=== PATIENT | female | born 1960 | race Caucasian/White ===

== ENCOUNTER 2018-12-28 17:30 | Inpatient (IN) | payer MEDICARE ==
[~2018-12-28] VITALS: Ht 160 cm; Wt 95.1 kg
[2018-12-28 18:20] VITALS: BP 124/79
[2018-12-28] MEDS ORDERED: DONE10TA61 PO (18:44)
[2018-12-28] MEDS ORDERED: CARB200T PO (18:44)
[2018-12-28] MEDS ORDERED: AMLO5TAB10 PO (18:44)
[2018-12-28] MEDS ORDERED: SENN-80 PO (18:44)
[2018-12-28] MEDS ORDERED: RISP1TAB3 PO (18:44)
[2018-12-28] MEDS ORDERED: ASPI325T8 PO (18:44)
[2018-12-28] MEDS ORDERED: MEMA10TA PO (18:44)
[2018-12-28] MEDS ORDERED: LISI-334 PO (18:44)
[2018-12-28] MEDS ORDERED: ATOR10TA60 PO (18:44)
[2018-12-28] MEDS ORDERED: PANT40TA5 PO (18:44)
[2018-12-28] MEDS: DONEPEZIL HCL 10 MG TABLET PO SCH (21:20)
[2018-12-28] MEDS: carBAMazepine 200 MG TABLET PO SCH (21:21)
[2018-12-28] MEDS ORDERED: SENNOSIDES 8.6 MG TABLET PO SCH (21:30)
[2018-12-28] MEDS ORDERED: risperiDONE 1 MG TABLET. PO SCH (21:30)
--- NOTE | 2018-12-28 22:28 | PDOC ---
Exam Note: [place] Note: Please also refer to the separate dictated note~for this date of service dictated separately. Discussed the patient with Nursing staff reviewed the chart.~Reviewed interim history and current functioning. Reviewed vital signs,~ Labs/ Radiology~and current medications noted below. Continue current treatment with the changes noted in the dictated addendum note Assessment: Vital Signs: Vital Signs Date Time Temp Pulse Resp B/P (MAP) Pulse Ox O2 Delivery O2 Flow Rate FiO2 12/28/18 18:20 97.7 85 19 124/79 (94) 98 Room Air Current Medications: Meds: Current Medications Aspirin (Oksana Aspirin) 325 mg DAILY PO ; Start 12/29/18 at 09:00 Carbamazepine (TEGretol) 100 mg BID PO Last administered on 12/28/18at 21:21; Start 12/28/18 at 21:30 Lisinopril (Prinivil) 20 mg DAILY PO ; Start 12/29/18 at 09:00 Amlodipine Besylate (Norvasc) 5 mg DAILY PO ; Start 12/29/18 at 09:00 Atorvastatin Calcium (Lipitor) 10 mg DAILY PO ; Start 12/29/18 at 09:00 Donepezil HCl (Aricept) 10 mg HS PO Last administered on 12/28/18at 21:20; Start 12/28/18 at 21:30 Memantine (Namenda) 10 mg DAILY PO ; Start 12/29/18 at 09:00 Pantoprazole Sodium (Protonix) 40 mg DAILY PO ; Start 12/29/18 at 09:00 Risperidone (RisperDAL) 1 mg BID PO Last administered on 12/28/18at 21:21; Start 12/28/18 at 21:30 Sennosides (Senna) 17.2 mg BID PO Last administered on 12/28/18at 21:21; Start 12/28/18 at 21:30 Active Scripts Active Reported Risperidone 1 Mg Tablet 1 Tab PO BID Senna (Sennosides) 8.6 Mg Tablet 17.2 Mg PO BID Pantoprazole Sodium 40 Mg Tablet.dr 1 Tab PO DAILY Namenda (Memantine Hcl) 10 Mg Tablet 1 Tab PO DAILY Lisinopril 20 Mg Tablet 1 Tab PO DAILY Aricept (Donepezil Hcl) 10 Mg Tablet 1 Tab PO QHS Tegretol (Carbamazepine) 200 Mg Tablet 0.5 Tab PO BID Atorvastatin Calcium 10 Mg Tablet 1 Tab PO DAILY Aspirin 325 Mg Tablet 1 Tab PO DAILY Amlodipine Besylate 5 Mg Tablet 1 Tab PO DAILY I have reviewed the current psychotropics carefully including drug interactions. Risk benefit ratio favors no change other than as noted in my dictated progress note. SOLO ALFARO MD Dec 28, 2018 22:28
[2018-12-28] MEDS ORDERED: MAGNESIUM HYDROXIDE 2,400 MG/30 ML ORAL.SUSP. PO PRN (23:00)
[2018-12-28] MEDS ORDERED: MAG HYDROX/AL HYDROX/SIMETH 30 ML ORAL.SUSP PO PRN (23:00)
[2018-12-29] MEDS ORDERED: DICL100G18 TP (00:32)
[2018-12-29] MEDS ORDERED: MEMA10TA PO (00:32)
[2018-12-29] MEDS ORDERED: TRAZ-86 PO (00:32)
[2018-12-29] MEDS ORDERED: RISP2TAB33 PO (00:32)
[2018-12-29] MEDS ORDERED: PROP10DR3 EACHEYE (00:32)
[2018-12-29] MEDS ORDERED: ACYC400T PO (00:32)
[2018-12-29] MEDS ORDERED: HYDR-2868 PO (00:32)
[2018-12-29] MEDS ORDERED: OLAN5TAB5 PO (00:32)
[2018-12-29] MEDS ORDERED: SIME100L MC (00:32)
[2018-12-29] MEDS ORDERED: SIMETHICONE 80 MG TAB.CHEW PO PRN (01:00)
[2018-12-29] MEDS ORDERED: POLYVINYL ALCOHOL 1.4% OPHTH SOLUTION 15ML BOTTLE. OU PRN (01:00)
[2018-12-29] MEDS: traZODone 100 MG TABLET. PO SCH ×2 (03:08→19:18)
[2018-12-29 05:58] VITALS: BP 142/79
[2018-12-29] MEDS: ATORVASTATIN CALCIUM 10 MG TABLET. PO SCH (08:27)
[2018-12-29] MEDS: MEMANTINE 10 MG TABLET. PO SCH (08:27)
[2018-12-29] MEDS: ASPIRIN 325 MG TABLET PO SCH (08:27)
[2018-12-29] MEDS: amLODIPine BESYLATE 5 MG TABLET PO SCH (08:28)
[2018-12-29] MEDS: CHOLECALCIFEROL (VITAMIN D3) 1,000 UNIT TABLET PO SCH (08:29)
[2018-12-29] MEDS: carBAMazepine 200 MG TABLET PO SCH ×2 (08:29→19:18)
[2018-12-29] MEDS: PANTOPRAZOLE 40 MG TABLET. PO SCH (08:29)
[2018-12-29] MEDS: LISINOPRIL 20 MG TABLET PO SCH (08:29)
[2018-12-29] MEDS: risperiDONE 1 MG TABLET. PO SCH (08:29)
[2018-12-29 08:30] LABS: BASO # 0.1 x10^3/uL (0.0-0.2); BASO % 1 % (0-3); EOS # 0.2 x10^3/uL (0.0-0.7); EOS % 3 % (0-3); HEMATOCRIT 36.5 % (36.0-47.0); HEMOGLOBIN 12.3 g/dL (12.0-15.5); LYMPH # 1.4 x10^3/uL (1.0-4.8); LYMPH % 23 % (24-48); MEAN CORPUSCULAR HEMOGLOBIN 31 pg (25-35); MEAN CORPUSCULAR HGB CONC 34 g/dL (31-37); MEAN CORPUSCULAR VOLUME 92 fL (79-100); MONO # 0.4 x10^3/uL (0.0-1.1); MONO % 6 % (0-9); NEUT # 4.1 x10^3uL (1.8-7.7); NEUT % 67 % (31-73); PLATELET COUNT 318 x10^3/uL (140-400); RED BLOOD COUNT 3.95 x10^6/uL (3.50-5.40); RED CELL DISTRIBUTION WIDTH 12.9 % (11.5-14.5); WHITE BLOOD COUNT 6.1 x10^3/uL (4.0-11.0)
[2018-12-29 08:39] LABS: ALBUMIN 3.8 g/dL (3.4-5.0); ALBUMIN/GLOBULIN RATIO 1.3 (1.0-1.7); CREATININE 0.5 mg/dL (0.6-1.0); GFR 126.7; POTASSIUM 4.6 mmol/L (3.5-5.1); TOTAL BILIRUBIN 0.2 mg/dL (0.2-1.0); TOTAL PROTEIN 6.8 g/dL (6.4-8.2)
[2018-12-29] MEDS ORDERED: amLODIPine BESYLATE 5 MG TABLET PO SCH (09:00)
[2018-12-29] MEDS ORDERED: hydroCHLOROthiazide 25 MG TABLET PO SCH (09:00)
[2018-12-29] MEDS ORDERED: HYDR-2145 PO (10:57)
[2018-12-29 12:07] LABS: THYROXINE 5.5 ug/dL (4.5-12.0)
[2018-12-29 14:20] LABS: CARBAM 3.5 mcg/mL (4.0-12.0)
[2018-12-29 17:18] VITALS: BP 129/72
[2018-12-29] MEDS: DONEPEZIL HCL 10 MG TABLET PO SCH (19:18)
[2018-12-29] MEDS: DICLOFENAC SODIUM 1% TOPICAL GEL 100GM TUBE. TP SCH (19:44)
[2018-12-29] MEDS: risperiDONE 2 MG TABLET. PO SCH (19:45)
[2018-12-29] MEDS: MEMANTINE 5 MG TABLET. PO SCH (19:45)
[2018-12-29] MEDS ORDERED: carBAMazepine 200 MG TABLET PO ONE (20:45)
[2018-12-29] MEDS ORDERED: traZODone 100 MG TABLET. PO SCH (21:00)
--- NOTE | 2018-12-29 22:27 | PDOC ---
Exam Note: [place] Note: Please also refer to the separate dictated note~for this date of service dictated separately.~Patient seen individually. Discussed the patient with Nursing staff reviewed the chart.~Reviewed interim history and current functioning. Reviewed vital signs,~Labs/ Radiology~and current medications noted below. Continue current treatment with the changes noted in the dictated addendum note Assessment: Vital Signs: Vital Signs Date Time Temp Pulse Resp B/P (MAP) Pulse Ox O2 Delivery O2 Flow Rate FiO2 12/29/18 17:18 97.3 91 18 129/72 (91) 97 12/28/18 18:20 Room Air I&O Intake and Output 12/29/18 07:00 Intake Total 360 ml Balance 360 ml Intake Oral 360 ml Labs: Laboratory Tests Test 12/29/18 07:54 White Blood Count 6.1 x10^3/uL (4.0-11.0) Red Blood Count 3.95 x10^6/uL (3.50-5.40) Hemoglobin 12.3 g/dL (12.0-15.5) Hematocrit 36.5 % (36.0-47.0) Mean Corpuscular Volume 92 fL (79-100) Mean Corpuscular Hemoglobin 31 pg (25-35) Mean Corpuscular Hemoglobin Concent 34 g/dL (31-37) Red Cell Distribution Width 12.9 % (11.5-14.5) Platelet Count 318 x10^3/uL (140-400) Neutrophils (%) (Auto) 67 % (31-73) Lymphocytes (%) (Auto) 23 % (24-48) L Monocytes (%) (Auto) 6 % (0-9) Eosinophils (%) (Auto) 3 % (0-3) Basophils (%) (Auto) 1 % (0-3) Neutrophils # (Auto) 4.1 x10^3uL (1.8-7.7) Lymphocytes # (Auto) 1.4 x10^3/uL (1.0-4.8) Monocytes # (Auto) 0.4 x10^3/uL (0.0-1.1) Eosinophils # (Auto) 0.2 x10^3/uL (0.0-0.7) Basophils # (Auto) 0.1 x10^3/uL (0.0-0.2) Sodium Level 139 mmol/L (136-145) Potassium Level 4.6 mmol/L (3.5-5.1) Chloride Level 103 mmol/L (98-107) Carbon Dioxide Level 27 mmol/L (21-32) Anion Gap 9 (6-14) Blood Urea Nitrogen 15 mg/dL (7-20) Creatinine 0.5 mg/dL (0.6-1.0) L Estimated GFR (Cockcroft-Gault) 126.7 BUN/Creatinine Ratio 30 (6-20) H Glucose Level 102 mg/dL (70-99) H Calcium Level 9.0 mg/dL (8.5-10.1) Magnesium Level 2.0 mg/dL (1.8-2.4) Iron Level 95 ug/dL (50-170) Total Iron Binding Capacity 275 ug/dL (250-450) Iron Saturation 35 % (15-34) H Total Bilirubin 0.2 mg/dL (0.2-1.0) Aspartate Amino Transferase (AST) 17 U/L (15-37) Alanine Aminotransferase (ALT) 37 U/L (14-59) Alkaline Phosphatase 95 U/L (46-116) Total Protein 6.8 g/dL (6.4-8.2) Albumin 3.8 g/dL (3.4-5.0) Albumin/Globulin Ratio 1.3 (1.0-1.7) Triglycerides Level 93 mg/dL (0-150) Cholesterol Level 199 mg/dL (0-200) LDL Cholesterol, Calculated 99 mg/dL (0-100) VLDL Cholesterol, Calculated 18 mg/dL (0-40) Non-HDL Cholesterol Calculated 117 mg/dL (0-129) HDL Cholesterol 82 mg/dL (40-60) H Cholesterol/HDL Ratio 2.0 Thyroid Stimulating Hormone (TSH) 1.422 uIU/mL (0.358-3.740) Thyroxine (T4) 5.5 ug/dL (4.5-12.0) Total Triiodothyronine (TT3) 96 ng/dL (71-180) Carbamazepine (Tegretol) Level 3.5 mcg/mL (4.0-12.0) L Carbamazepine Last Dose Date 12/28/18 Carbamazepine Last Dose Time 1999 Current Medications: Meds: Current Medications Aspirin (Oksana Aspirin) 325 mg DAILY PO Last administered on 3/30/19at 08:27; Start 12/29/18 at 09:00 Carbamazepine (TEGretol) 100 mg BID PO Last administered on 12/29/18 19:18; Start 12/28/18 at 21:30; Stop 12/29/18 at 20:46; Status DC Lisinopril (Prinivil) 20 mg DAILY PO Last administered on 12/29/18 08:29; Start 12/29/18 at 09:00 Amlodipine Besylate (Norvasc) 5 mg DAILY PO ; Start 12/29/18 at 09:00; Stop at 09:00; Status DC Atorvastatin Calcium (Lipitor) 10 mg DAILY PO Last administered on 12/29/18 08 :27; Start 12/29/18 at 09:00 Donepezil HCl (Aricept) 10 mg HS PO Last administered on 12/29/18 19:18; Start 12/28/18 at 21:30 Memantine (Namenda) 10 mg DAILY PO Last administered on 12/29/18 08:27; Start 12/29/18 at 09:00 Pantoprazole Sodium (Protonix) 40 mg DAILY PO Last administered on 12/29/18 08 :29; Start 12/29/18 at 09:00 Risperidone (RisperDAL) 1 mg BID PO Last administered on 12/28/18 21:21; Start 12/28/18 at 21:30; Stop 12/29/18 at 00:37; Status DC Sennosides (Senna) 17.2 mg BID PO Last administered on 12/28/18 21:21; Start 12/28/18 at 21:30; Stop 12/29/18 at 00:37; Status DC Acetaminophen (Tylenol) 650 mg PRN Q6HRS PRN PO PAIN / TEMP; Start 12/28/18 at 23:00 Multi-Ingredient Ointment (Analgesic [place]) 1 shekhar PRN QID PRN TP MUSCLE PAIN; Start 12/28/18 at 23:00 Al Hydroxide/Mg Hydroxide (Mylanta Plus Xs) 15 ml PRN AFTMEALHC PRN PO DYSPEPSIA; Start 12/28/18 at 23:00 Magnesium Hydroxide (Milk Of Magnesia) 2,400 mg PRN QHS PRN PO CONSTIPATION; Start 12/28/18 at 23:00 Diclofenac Sodium (Voltaren) 1 shekhar HS TP Last administered on 12/29/18 19:44; Start 12/29/18 at 21:00 Olanzapine (ZyPREXA ZYDIS) 5 mg PRN BID PRN PO MANIC DEPRESSION; Start at 09:00 Acyclovir (Zovirax) 400 mg PRN TID PRN PO COLD SORES; Start 12/29/18 at 09:00 Hydrochlorothiazide (Hydrodiuril) 25 mg BID PO Last administered on 12/29/18 08:27; Start 12/29/18 at 09:00; Stop 12/29/18 at 18:13; Status DC Memantine (Namenda) 5 mg QHS PO Last administered on 12/29/18 19:45; Start at 21:00 Artificial Tears (Artificial Tears) 1 drop PRN TID PRN OU DRY EYE; Start at 01:00 Risperidone (RisperDAL) 2 mg QHS PO Last administered on 12/29/18 19:45; Start 12/29/18 at 21:00 Simethicone (Gas-X) 80 mg PRN Q8HRS PRN PO GAS / BLOATING; Start 12/29/18 at 01 :00 Trazodone HCl (Desyrel) 100 mg QHS PO ; Start 12/29/18 at 21:00; Stop 12/29/18 at 21:00; Status DC Amlodipine Besylate (Norvasc) 10 mg DAILY PO Last administered on 12/29/18 08: 28; Start 12/29/18 at 09:00 Risperidone (RisperDAL) 1 mg DAILY PO Last administered on 12/29/18 08:29; Start 12/29/18 at 09:00 Vitamin D (Vitamin D3) 2,000 unit DAILY PO Last administered on 12/29/18 08:29 ; Start 12/29/18 at 09:00 Trazodone HCl (Desyrel) 100 mg QHS PO Last administered on 12/29/18 19:18; Start 12/29/18 at 03:00 Hydrochlorothiazide (Hydrodiuril) 25 mg DAILY PO ; Start 12/30/18 at 09:00 Carbamazepine (TEGretol) 200 mg BID PO ; Start 12/30/18 at 09:00 Carbamazepine (TEGretol) 100 mg 1X ONCE PO Last administered on 12/29/18at 20: 56; Start 12/29/18 at 20:45; Stop 12/29/18 at 20:49; Status DC Active Scripts Active Reported Hydrochlorothiazide Tablet (Hydrochlorothiazide) 25 Mg Tablet 25 Mg PO BID Trazodone Hcl 100 Mg Tablet 100 Mg PO HS Simethicone 100 Ml Liquid 125 Ml MC PRN Q8HRS PRN Systane Ultra 0.4-0.3% Eye Drp (Propylene Glycol/Peg 400) 10 Ml Drops 1 Drop EACHEYE PRN TID PRN Voltaren (Diclofenac Sodium) 100 Gm Gel..gram. 100 Gm TP HS Acyclovir 400 Mg Tablet 400 Mg PO PRN TID PRN Risperdal (Risperidone) 2 Mg Tablet 2 Mg PO QHS Namenda (Memantine Hcl) 10 Mg Tablet 5 Mg PO HS Zyprexa Zydis (Olanzapine) 5 Mg Tab.rapdis 5 Mg PO BID Risperidone 1 Mg Tablet 1 Mg PO DAILY Pantoprazole Sodium 40 Mg Tablet.dr 1 Tab PO DAILY Namenda (Memantine Hcl) 10 Mg Tablet 1 Tab PO DAILY Lisinopril 20 Mg Tablet 1 Tab PO BID Aricept (Donepezil Hcl) 10 Mg Tablet 1 Tab PO QHS Tegretol (Carbamazepine) 200 Mg Tablet 0.5 Tab PO BID Atorvastatin Calcium 10 Mg Tablet 1 Tab PO DAILY Aspirin 325 Mg Tablet 1 Tab PO DAILY Amlodipine Besylate 5 Mg Tablet 10 Mg PO DAILY I have reviewed the current psychotropics carefully including drug interactions. Risk benefit ratio favors no change other than as noted in my dictated progress note. Diagnosis: Problems: (1) Anxiety disorder (2) Bipolar affective, mixed, sev w/ psych (3) Impulse control disorder SOLO ALFARO MD Dec 29, 2018 22:27
--- NOTE | 2018-12-29 22:30 | HP ---
ADMIT DATE: 12/28/2018 PSYCHIATRIC ADMISSION HISTORY AND EVALUATION This late entry, date of service 12/28/2018, covers elements not covered in my initial note. I met with the patient on the evening of 12/28/2018 for this evaluation. IDENTIFYING DATA: The patient is a 58-year-old female referred to us from [facility] on account of recurrence of manic symptoms. Reportedly, the patient has been speaking nonsense, states all the meds were removed from her apartment by spies. She has been laughing, dancing, singing, talking to herself intermittently, actively hallucinating, very uncooperative. She has a history of bipolar disorder, has failed outpatient psychiatric interventions, referred by Dr. Coughlin. The patient is also noted to be paranoid, delusional, manic, hyper-gnosticism, unable to stop her racing thoughts, labile mood, extremely impulsive with hallucinations with marked insomnia. She has failed outpatient psychiatric interventions. CHIEF COMPLAINT: "Yes, I have been getting manic again. My medications need to be adjusted." HISTORY OF PRESENT ILLNESS: The patient has a long history of bipolar disorder. More recently, she has been getting extremely manic, grandiose, psychotic as above. She has been sleeping poorly and extremely hyper-gnosticism as noted above with hallucinations. No active suicidal or homicidal ideation. PAST PSYCHIATRIC HISTORY: As above and we will get outpatient records from past psychiatric treatment. PAST MEDICAL HISTORY: Positive for GERD; hemorrhoids; herpes simplex; hyperlipidemia; hypertension; obstructive sleep apnea, on CPAP; osteoarthritis; seizure disorder; hyponatremia. ACCU-CHEKS: None. DIET: Regular with 1500 mL fluid restriction. ALLERGIES: SHE HAS MULTIPLE ALLERGIES. VALPROIC ACID, DESMOPRESSIN, ETHANOLAMINE, ETHYLENEDIAMINE, HYDROCODONE, LITHIUM, MENINGOCOCCAL GROUP B VACCINE, METFORMIN, MORPHINE, ONDANSETRON, PABA DERIVATIVES, PARABENS, PHENTERMINE, PROMETHAZINE, RED DYE, TRAMADOL, YELLOW DYE. CODE STATUS: Full code. Takes her medications whole. Ambulates with walker. UA, negative at [facility] ER. CURRENT PSYCHOTROPICS: Namenda 10 mg a.m. and 5 mg at bedtime; Risperdal 1 mg a.m. and 2 mg at bedtime; Zyprexa Zydis 5 mg b.i.d. p.r.n. for renetta; Aricept 10 mg a day; Tegretol 100 mg twice a day, level is 3.5, subtherapeutic; trazodone 100 mg at bedtime. FAMILY HISTORY: Noncontributory. SOCIAL HISTORY: No history of alcohol; drug abuse; physical, sexual or elder abuse. She is not known to be a perpetrator. REACTION TO HOSPITALIZATION: The patient accepting of it. ASSETS: Reasonably cognitively intact. MENTAL STATUS EXAM: The patient was seen individually on the evening of 12/28/2018. She is reasonably oriented. Speech coherent, rapid at times. Abstraction fair, computation impaired, language function intact, attention span short. Mood and affect somewhat anxious, labile at times, grandiose, quite hyperverbal at times, distractible. No active suicidal or homicidal ideation. LABORATORY DATA: Reviewed. IMPRESSION: Bipolar 1 disorder, mixed with psychotic features; anxiety disorder, unspecified; impulse control disorder, unspecified. Rest as above. PLAN: Admit to geropsychiatry unit at [facility]. I will see the patient daily individually from a psychiatric standpoint, medical followup with Dr. Rodriguez. Continue current psychotropics, and we will plan to increase Tegretol to 200 mg b.i.d. Check CBC, CMP, valproic acid level in 3 days. Continue rest of the psychotropics and may need to increase Risperdal as well. We will get past psychiatric records to confirm diagnosis. MAN Alli ALFARO MD DR: BO/tavo JOB#: [id number] / [id number]
--- NOTE | 2018-12-29 23:50 | CONS ---
DATE OF CONSULTATION: 12/29/2018 REASON FOR CONSULTATION: Medical management. HISTORY OF PRESENT ILLNESS: The patient is a 58-year-old female patient, who lives at home and was referred [facility] from [facility] on account of being paranoid, delusional, thinks why removed medication from her apartment, delusional, manic, speaking nonsense, laughing, dancing, singing and talking to herself intermittently, hyper-latter-day, labile, impulsive and cooperative, hallucinating and with sleep disturbances. All this on a background of bipolar, mixed with psychotic features. Medically, the patient is known to have hyperlipidemia, hypertension, obstructive sleep apnea, on CPAP; osteoarthritis, seizure disorder, hyponatremia. She has also had hemorrhoids and herpes simplex. PAST PSYCHIATRIC HISTORY: Significant for anxiety, bipolar disorder, dementia, and depression. PAST SURGICAL HISTORY: Significant for right hip replacement, adenoidectomy, tonsillectomy, septoplasty, breast biopsy, hysterectomy and oophorectomy. FAMILY HISTORY: Significant for breast cancer in her mother and paternal grandmother as well as colon cancer in the mother, heart attack in her father. No known problems in her brothers and sisters. SOCIAL HISTORY: The patient stated that she has never smoked, has never used smokeless tobacco and reports that she does not drink alcohol or recreational drugs. She apparently has a son and a daughter. ALLERGIES: SHE IS ALLERGIC TO PARA AMINOBENZOIC ACID DERIVATIVES AND DESMOPRESSIN, ETHANOLAMINE, ETHYLENEDIAMINE, HYDROCODONE, LITHIUM, MENINGOCOCCAL VACCINES B AND C, METFORMIN, AND MORPHINE. MEDICATIONS: She is currently on following medications: She is on acyclovir 400 mg 3 times a day for cold sores. She is on Aricept 10 mg once a day, atorvastatin calcium 10 mg daily, amlodipine besylate 10 mg daily, lisinopril 20 mg twice a day, aspirin 325 mg once a day, diclofenac sodium 1 gram 3 times a day, Tegretol 100 mg twice a day, trazodone 100 mg at bedtime, olanzapine 5 mg twice a day, risperidone 1 mg daily, Namenda 10 mg once a day, hydrochlorothiazide 25 mg twice a day, Systane Ultra 1 drop to both eyes 3 times a day, simethicone 125 mL every 8 hours as needed, Protonix 40 mg once a day. REVIEW OF SYSTEMS: As per history of present illness. PHYSICAL EXAMINATION GENERAL: When I examined her, the patient was sitting comfortably in her chair, in no apparent respiratory distress. There was no pallor, jaundice, cyanosis, or thyromegaly. No jugular venous distension. No lower limb edema. VITAL SIGNS: Her heart rate was 91, blood pressure was 129/72, temperature was 97.3, respiratory rate was 18 and oxygen saturation was 97% on room air. HEAD, EYES, EARS, NOSE AND THROAT: Showed she is normocephalic, atraumatic. NECK: Supple. HEART: Showed normal first and second heart sounds with no gallop, rub or murmur. CHEST: Clear to auscultation. No crepitation or rhonchi. ABDOMEN: Slightly distended, soft, nontender. NEUROLOGIC: She was awake, alert, responding appropriately. All cranial nerves intact. EXTREMITIES: She moves extremities without difficulty. She ambulates without assistance or assistive devices. LABORATORY DATA: Her lab work showed a white cell count of 6100, hemoglobin 12, hematocrit 36, MCV 92, and platelet count is 318,000. Her chemistry showed a serum sodium 139, potassium 4.6, chloride 103, bicarbonate 27, anion gap of 9, BUN 15, creatinine was 0.5 mg/dL. Estimated GFR was 126 mL per minute. Her glucose 102, calcium 9, magnesium 2. Her serum iron was 95, TIBC was 275. Iron saturation was 35. Her total bilirubin, AST, ALT, alkaline phosphatase were normal. Total protein was 6.8, albumin 3.8. Serum triglycerides were 93. Total cholesterol 199, LDL cholesterol was 99, VLDL was 18, HDL cholesterol was 82 and the ratio was 2. Her TSH, total T4 and total T3 are all within normal range. Her carbamazepine level was low, the normal range is 4-12. IMPRESSION: In summary, this is a 58-year-old female patient, who lives at home and who was transferred to [facility] from [facility] on account of being paranoid, delusional, thinks why removed her medication from her apartment, delusional, manic, speaking nonsense, laughing, dancing, singing and talking to herself intermittently, she is hyper-latter-day, labile, impulsive and cooperative, hallucinating with sleep disturbances, all this in a background of bipolar, mixed with psychotic features. Medically, all her vital signs are within normal range as well as all her lab work and her medications seem to be all appropriate. I will follow obviously all the lab work that are still pending at the time of this dictation and make any necessary recommendation. Thank you, Dr. Torres for allowing me to participate. OMAYRA SEBASTIAN MD DR: ROD/tavo JOB#: [id number] / [id number]
[2018-12-30 02:06] LABS: HEMOGLOBIN A1C 5.8 % (4.8-5.6)
[2018-12-30 06:35] VITALS: BP 113/71
[2018-12-30] MEDS: hydroCHLOROthiazide 25 MG TABLET PO SCH (07:43)
[2018-12-30] MEDS: ASPIRIN 325 MG TABLET PO SCH (07:43)
[2018-12-30] MEDS: ATORVASTATIN CALCIUM 10 MG TABLET. PO SCH (07:44)
[2018-12-30] MEDS: MEMANTINE 10 MG TABLET. PO SCH (07:44)
[2018-12-30] MEDS: amLODIPine BESYLATE 5 MG TABLET PO SCH (07:45)
[2018-12-30] MEDS: risperiDONE 1 MG TABLET. PO SCH (07:46)
[2018-12-30] MEDS: carBAMazepine 200 MG TABLET PO SCH ×2 (07:46→20:31)
[2018-12-30] MEDS: PANTOPRAZOLE 40 MG TABLET. PO SCH (07:46)
[2018-12-30] MEDS: LISINOPRIL 20 MG TABLET PO SCH (07:46)
[2018-12-30] MEDS: CHOLECALCIFEROL (VITAMIN D3) 1,000 UNIT TABLET PO SCH (07:46)
[2018-12-30 15:44] VITALS: BP 140/82
[2018-12-30] MEDS: traZODone 100 MG TABLET. PO SCH (20:31)
[2018-12-30] MEDS: MEMANTINE 5 MG TABLET. PO SCH (20:31)
[2018-12-30] MEDS: DONEPEZIL HCL 10 MG TABLET PO SCH (20:31)
[2018-12-30] MEDS: risperiDONE 2 MG TABLET. PO SCH (20:31)
[2018-12-30] MEDS: DICLOFENAC SODIUM 1% TOPICAL GEL 100GM TUBE. TP SCH (20:49)
--- NOTE | 2018-12-30 22:38 | PDOC ---
Exam Note: [place] Note: Please also refer to the separate dictated note~for this date of service dictated separately.~Patient seen individually. Discussed the patient with Nursing staff reviewed the chart.~Reviewed interim history and current functioning. Reviewed vital signs,~Labs/ Radiology~and current medications noted below. Continue current treatment with the changes noted in the dictated addendum note Assessment: Vital Signs: Vital Signs Date Time Temp Pulse Resp B/P (MAP) Pulse Ox O2 Delivery O2 Flow Rate FiO2 12/30/18 15:44 98.6 81 18 140/82 (101) 94 12/30/18 06:35 Room Air I&O Intake and Output 12/30/18 07:00 Intake Total 1590 ml Balance 1590 ml Intake Oral 1590 ml Current Medications: Meds: Current Medications Aspirin (Oksana Aspirin) 325 mg DAILY PO Last administered on 12/30/18at 07:43; Start 12/29/18 at 09:00 Carbamazepine (TEGretol) 100 mg BID PO Last administered on 12/29/18 19:18; Start 12/28/18 at 21:30; Stop 12/29/18 at 20:46; Status DC Lisinopril (Prinivil) 20 mg DAILY PO Last administered on 12/30/18at 07:46; Start 12/29/18 at 09:00 Amlodipine Besylate (Norvasc) 5 mg DAILY PO ; Start 12/29/18 at 09:00; Stop at 09:00; Status DC Atorvastatin Calcium (Lipitor) 10 mg DAILY PO Last administered on 12/30/18at 07 :44; Start 12/29/18 at 09:00 Donepezil HCl (Aricept) 10 mg HS PO Last administered on 12/30/18at 20:31; Start 12/28/18 at 21:30 Memantine (Namenda) 10 mg DAILY PO Last administered on 12/30/18at 07:44; Start 12/29/18 at 09:00 Pantoprazole Sodium (Protonix) 40 mg DAILY PO Last administered on 12/30/18at 07 :46; Start 12/29/18 at 09:00 Risperidone (RisperDAL) 1 mg BID PO Last administered on 12/28/18at 21:21; Start 12/28/18 at 21:30; Stop 12/29/18 at 00:37; Status DC Sennosides (Senna) 17.2 mg BID PO Last administered on 12/28/18at 21:21; Start 12/28/18 at 21:30; Stop 12/29/18 at 00:37; Status DC Acetaminophen (Tylenol) 650 mg PRN Q6HRS PRN PO PAIN / TEMP; Start 12/28/18 at 23:00 Multi-Ingredient Ointment (Analgesic [place]) 1 shekhar PRN QID PRN TP MUSCLE PAIN; Start 12/28/18 at 23:00 Al Hydroxide/Mg Hydroxide (Mylanta Plus Xs) 15 ml PRN AFTMEALHC PRN PO DYSPEPSIA; Start 12/28/18 at 23:00 Magnesium Hydroxide (Milk Of Magnesia) 2,400 mg PRN QHS PRN PO CONSTIPATION; Start 12/28/18 at 23:00 Diclofenac Sodium (Voltaren) 1 shekhar HS TP Last administered on 12/30/18at 20:49; Start 12/29/18 at 21:00 Olanzapine (ZyPREXA ZYDIS) 5 mg PRN BID PRN PO MANIC DEPRESSION; Start at 09:00 Acyclovir (Zovirax) 400 mg PRN TID PRN PO COLD SORES; Start 12/29/18 at 09:00 Hydrochlorothiazide (Hydrodiuril) 25 mg BID PO Last administered on 12/29/18at 08:27; Start 12/29/18 at 09:00; Stop 12/29/18 at 18:13; Status DC Memantine (Namenda) 5 mg QHS PO Last administered on 12/30/18at 20:31; Start at 21:00 Artificial Tears (Artificial Tears) 1 drop PRN TID PRN OU DRY EYE; Start at 01:00 Risperidone (RisperDAL) 2 mg QHS PO Last administered on 12/30/18at 20:31; Start 12/29/18 at 21:00 Simethicone (Gas-X) 80 mg PRN Q8HRS PRN PO GAS / BLOATING; Start 12/29/18 at 01 :00 Trazodone HCl (Desyrel) 100 mg QHS PO ; Start 12/29/18 at 21:00; Stop 12/29/18 at 21:00; Status DC Amlodipine Besylate (Norvasc) 10 mg DAILY PO Last administered on 12/30/18 07: 45; Start 12/29/18 at 09:00 Risperidone (RisperDAL) 1 mg DAILY PO Last administered on 12/30/18 07:46; Start 12/29/18 at 09:00 Vitamin D (Vitamin D3) 2,000 unit DAILY PO Last administered on 12/30/18 07:46 ; Start 12/29/18 at 09:00 Trazodone HCl (Desyrel) 100 mg QHS PO Last administered on 12/30/18 20:31; Start 12/29/18 at 03:00 Hydrochlorothiazide (Hydrodiuril) 25 mg DAILY PO Last administered on 07:43; Start 12/30/18 at 09:00 Carbamazepine (TEGretol) 200 mg BID PO Last administered on 12/30/18 20:31; Start 12/30/18 at 09:00 Carbamazepine (TEGretol) 100 mg 1X ONCE PO Last administered on 12/29/18 20: 56; Start 12/29/18 at 20:45; Stop 12/29/18 at 20:49; Status DC Active Scripts Active Reported Hydrochlorothiazide Tablet (Hydrochlorothiazide) 25 Mg Tablet 25 Mg PO BID Trazodone Hcl 100 Mg Tablet 100 Mg PO HS Simethicone 100 Ml Liquid 125 Ml MC PRN Q8HRS PRN Systane Ultra 0.4-0.3% Eye Drp (Propylene Glycol/Peg 400) 10 Ml Drops 1 Drop EACHEYE PRN TID PRN Voltaren (Diclofenac Sodium) 100 Gm Gel..gram. 100 Gm TP HS Acyclovir 400 Mg Tablet 400 Mg PO PRN TID PRN Risperdal (Risperidone) 2 Mg Tablet 2 Mg PO QHS Namenda (Memantine Hcl) 10 Mg Tablet 5 Mg PO HS Zyprexa Zydis (Olanzapine) 5 Mg Tab.rapdis 5 Mg PO BID Risperidone 1 Mg Tablet 1 Mg PO DAILY Pantoprazole Sodium 40 Mg Tablet.dr 1 Tab PO DAILY Namenda (Memantine Hcl) 10 Mg Tablet 1 Tab PO DAILY Lisinopril 20 Mg Tablet 1 Tab PO BID Aricept (Donepezil Hcl) 10 Mg Tablet 1 Tab PO QHS Tegretol (Carbamazepine) 200 Mg Tablet 0.5 Tab PO BID Atorvastatin Calcium 10 Mg Tablet 1 Tab PO DAILY Aspirin 325 Mg Tablet 1 Tab PO DAILY Amlodipine Besylate 5 Mg Tablet 10 Mg PO DAILY I have reviewed the current psychotropics carefully including drug interactions. Risk benefit ratio favors no change other than as noted in my dictated progress note. Diagnosis: Problems: (1) Anxiety disorder (2) Bipolar affective, mixed, sev w/ psych (3) Impulse control disorder SOLO ALFARO MD Dec 30, 2018 22:38
[2018-12-30] MEDS: ACETAMINOPHEN 325 MG TABLET PO PRN (22:45)
[2018-12-31 06:44] VITALS: BP 130/68
[2018-12-31] MEDS: ASPIRIN 325 MG TABLET PO SCH (08:12)
[2018-12-31] MEDS: hydroCHLOROthiazide 25 MG TABLET PO SCH (08:13)
[2018-12-31] MEDS: ATORVASTATIN CALCIUM 10 MG TABLET. PO SCH (08:13)
[2018-12-31] MEDS: LISINOPRIL 20 MG TABLET PO SCH (08:14)
[2018-12-31] MEDS: MEMANTINE 10 MG TABLET. PO SCH (08:14)
[2018-12-31] MEDS: amLODIPine BESYLATE 5 MG TABLET PO SCH (08:14)
[2018-12-31] MEDS: carBAMazepine 200 MG TABLET PO SCH ×2 (08:15→19:30)
[2018-12-31] MEDS: risperiDONE 1 MG TABLET. PO SCH (08:15)
[2018-12-31] MEDS: PANTOPRAZOLE 40 MG TABLET. PO SCH (08:15)
[2018-12-31] MEDS: CHOLECALCIFEROL (VITAMIN D3) 1,000 UNIT TABLET PO SCH (08:15)
[2018-12-31 16:13] VITALS: BP 115/76
[2018-12-31] MEDS: CHOLECALCIFEROL (VITAMIN D3) 50,000 UNIT CAPSULE PO SCH (17:14)
[2018-12-31] MEDS: MEMANTINE 5 MG TABLET. PO SCH (19:30)
[2018-12-31] MEDS: DONEPEZIL HCL 10 MG TABLET PO SCH (19:30)
[2018-12-31] MEDS: traZODone 100 MG TABLET. PO SCH (19:30)
[2018-12-31] MEDS: risperiDONE 2 MG TABLET. PO SCH (19:33)
[2018-12-31] MEDS: DICLOFENAC SODIUM 1% TOPICAL GEL 100GM TUBE. TP SCH (19:35)
--- NOTE | 2018-12-31 21:04 | PN ---
DATE: 12/29/2018 PSYCHIATRIC PROGRESS NOTE This late entry 12/29/2018 covers elements not covered in my initial note. SUBJECTIVE: I met with the patient in the evening. The patient slept 3-1/2 hours previous night. She remains somewhat grandiose, hyper-tenriism at times, anxious, but otherwise very pleasant as I met with her individually. REVIEW OF SYSTEMS: No CV, , pulmonary, eye system symptoms on review. MENTAL STATUS EXAM: The patient is reasonably oriented. Speech coherent, somewhat pressured. Abstraction fair, computation impaired, language function intact. Attention span short. Tegretol level is 3.5, subtherapeutic and Tegretol 100 mg b.i.d. IMPRESSION: Unchanged from initial note. PLAN: Increase Tegretol to 200 mg b.i.d. Check CBC, CMP, Tegretol level in 3 days. Rest unchanged. MAN Alli ALFARO MD DR: BO/tavo JOB#: [id number] / [id number]
--- NOTE | 2018-12-31 21:06 | PN ---
DATE: 12/30/2018 PSYCHIATRIC PROGRESS NOTE This late entry 12/30/2018 covers elements not covered in my initial note. SUBJECTIVE: I met with the patient in the evening. The patient slept 5-3/4 hours previous night. She remains somewhat anxious, restless, hyperverbal, but is tolerating the increased Tegretol with labs awaited. REVIEW OF SYSTEMS: No CV, , pulmonary, eye system symptoms on review. MENTAL STATUS EXAM: Reasonably oriented. Speech coherent, rapid at times. Abstraction fair, computation impaired, language function intact. Mood and affect remain somewhat grandiose. LABORATORY DATA: Reviewed. IMPRESSION: Bipolar 1 disorder, manic with psychotic features. Rest unchanged. PLAN: No change from initial note. MAN Alli ALFARO MD DR: BO/tavo JOB#: [id number] / [id number]
[2018-12-31] MEDS: ACETAMINOPHEN 325 MG TABLET PO PRN (21:42)
--- NOTE | 2018-12-31 22:49 | PDOC ---
Exam Note: [place] Note: Please also refer to the separate dictated note~for this date of service dictated separately.~Patient seen individually. Discussed the patient with Nursing staff reviewed the chart.~Reviewed interim history and current functioning. Reviewed vital signs,~Labs/ Radiology~and current medications noted below. Continue current treatment with the changes noted in the dictated addendum note Assessment: Vital Signs: Vital Signs Date Time Temp Pulse Resp B/P (MAP) Pulse Ox O2 Delivery O2 Flow Rate FiO2 12/31/18 16:13 97.5 94 18 115/76 (89) 98 12/31/18 06:44 Room Air I&O Intake and Output 12/31/18 06:59 Intake Total 1415 ml Balance 1415 ml Intake Oral 1415 ml Current Medications: Meds: Current Medications Aspirin (Oksana Aspirin) 325 mg DAILY PO Last administered on 12/31/18 08:12; Start 12/29/18 at 09:00 Carbamazepine (TEGretol) 100 mg BID PO Last administered on 12/29/18 19:18; Start 12/28/18 at 21:30; Stop 12/29/18 at 20:46; Status DC Lisinopril (Prinivil) 20 mg DAILY PO Last administered on 12/31/18 08:14; Start 12/29/18 at 09:00 Amlodipine Besylate (Norvasc) 5 mg DAILY PO ; Start 12/29/18 at 09:00; Stop at 09:00; Status DC Atorvastatin Calcium (Lipitor) 10 mg DAILY PO Last administered on 12/31/18at 08: 13; Start 12/29/18 at 09:00 Donepezil HCl (Aricept) 10 mg HS PO Last administered on 12/31/18at 19:30; Start 12/28/18 at 21:30 Memantine (Namenda) 10 mg DAILY PO Last administered on 12/31/18 08:14; Start 12/29/18 at 09:00 Pantoprazole Sodium (Protonix) 40 mg DAILY PO Last administered on 12/31/18at 08: 15; Start 12/29/18 at 09:00 Risperidone (RisperDAL) 1 mg BID PO Last administered on 12/28/18at 21:21; Start 12/28/18 at 21:30; Stop 12/29/18 at 00:37; Status DC Sennosides (Senna) 17.2 mg BID PO Last administered on 12/28/18 21:21; Start 12/28/18 at 21:30; Stop 12/29/18 at 00:37; Status DC Acetaminophen (Tylenol) 650 mg PRN Q6HRS PRN PO PAIN / TEMP Last administered on 12/31/18at 21:42; Start 12/28/18 at 23:00 Multi-Ingredient Ointment (Analgesic [place]) 1 shekhar PRN QID PRN TP MUSCLE PAIN; Start 12/28/18 at 23:00 Al Hydroxide/Mg Hydroxide (Mylanta Plus Xs) 15 ml PRN AFTMEALHC PRN PO DYSPEPSIA; Start 12/28/18 at 23:00 Magnesium Hydroxide (Milk Of Magnesia) 2,400 mg PRN QHS PRN PO CONSTIPATION; Start 12/28/18 at 23:00 Diclofenac Sodium (Voltaren) 1 shekhar HS TP Last administered on 12/31/18at 19:35; Start 12/29/18 at 21:00 Olanzapine (ZyPREXA ZYDIS) 5 mg PRN BID PRN PO MANIC DEPRESSION; Start at 09:00 Acyclovir (Zovirax) 400 mg PRN TID PRN PO COLD SORES; Start 12/29/18 at 09:00 Hydrochlorothiazide (Hydrodiuril) 25 mg BID PO Last administered on 12/29/18at 08:27; Start 12/29/18 at 09:00; Stop 12/29/18 at 18:13; Status DC Memantine (Namenda) 5 mg QHS PO Last administered on 12/31/18at 19:30; Start at 21:00 Artificial Tears (Artificial Tears) 1 drop PRN TID PRN OU DRY EYE; Start at 01:00 Risperidone (RisperDAL) 2 mg QHS PO Last administered on 12/31/18at 19:33; Start 12/29/18 at 21:00 Simethicone (Gas-X) 80 mg PRN Q8HRS PRN PO GAS / BLOATING; Start 12/29/18 at 01 :00 Trazodone HCl (Desyrel) 100 mg QHS PO ; Start 12/29/18 at 21:00; Stop 12/29/18 at 21:00; Status DC Amlodipine Besylate (Norvasc) 10 mg DAILY PO Last administered on 12/31/18 08: 14; Start 12/29/18 at 09:00 Risperidone (RisperDAL) 1 mg DAILY PO Last administered on 12/31/18 08:15; Start 12/29/18 at 09:00 Vitamin D (Vitamin D3) 2,000 unit DAILY PO Last administered on 12/31/18 08:15 ; Start 12/29/18 at 09:00 Trazodone HCl (Desyrel) 100 mg QHS PO Last administered on 12/31/18 19:30; Start 12/29/18 at 03:00 Hydrochlorothiazide (Hydrodiuril) 25 mg DAILY PO Last administered on 12/31/18 08:13; Start 12/30/18 at 09:00 Carbamazepine (TEGretol) 200 mg BID PO Last administered on 12/31/18 19:30; Start 12/30/18 at 09:00 Carbamazepine (TEGretol) 100 mg 1X ONCE PO Last administered on 12/29/18at 20: 56; Start 12/29/18 at 20:45; Stop 12/29/18 at 20:49; Status DC Vitamin D (Vitamin D3) 50,000 unit WEEKLY PO Last administered on 12/31/18 17: 14; Start 12/31/18 at 17:00 Active Scripts Active Reported Hydrochlorothiazide Tablet (Hydrochlorothiazide) 25 Mg Tablet 25 Mg PO BID Trazodone Hcl 100 Mg Tablet 100 Mg PO HS Simethicone 100 Ml Liquid 125 Ml MC PRN Q8HRS PRN Systane Ultra 0.4-0.3% Eye Drp (Propylene Glycol/Peg 400) 10 Ml Drops 1 Drop EACHEYE PRN TID PRN Voltaren (Diclofenac Sodium) 100 Gm Gel..gram. 100 Gm TP HS Acyclovir 400 Mg Tablet 400 Mg PO PRN TID PRN Risperdal (Risperidone) 2 Mg Tablet 2 Mg PO QHS Namenda (Memantine Hcl) 10 Mg Tablet 5 Mg PO HS Zyprexa Zydis (Olanzapine) 5 Mg Tab.rapdis 5 Mg PO BID Risperidone 1 Mg Tablet 1 Mg PO DAILY Pantoprazole Sodium 40 Mg Tablet.dr 1 Tab PO DAILY Namenda (Memantine Hcl) 10 Mg Tablet 1 Tab PO DAILY Lisinopril 20 Mg Tablet 1 Tab PO BID Aricept (Donepezil Hcl) 10 Mg Tablet 1 Tab PO QHS Tegretol (Carbamazepine) 200 Mg Tablet 0.5 Tab PO BID Atorvastatin Calcium 10 Mg Tablet 1 Tab PO DAILY Aspirin 325 Mg Tablet 1 Tab PO DAILY Amlodipine Besylate 5 Mg Tablet 10 Mg PO DAILY I have reviewed the current psychotropics carefully including drug interactions. Risk benefit ratio favors no change other than as noted in my dictated progress note. Diagnosis: Problems: (1) Anxiety disorder (2) Bipolar affective, mixed, sev w/ psych (3) Impulse control disorder SOLO ALFARO MD Dec 31, 2018 22:49
[2019-01-01 06:01] VITALS: BP 123/78
[2019-01-01 07:35] LABS: BASO % 1 % (0-3); EOS # 0.1 x10^3/uL (0.0-0.7); EOS % 3 % (0-3); HEMATOCRIT 35.4 % (36.0-47.0); LYMPH # 1.3 x10^3/uL (1.0-4.8); LYMPH % 26 % (24-48); MEAN CORPUSCULAR HEMOGLOBIN 31 pg (25-35); MEAN CORPUSCULAR HGB CONC 34 g/dL (31-37); MEAN CORPUSCULAR VOLUME 92 fL (79-100); MONO # 0.4 x10^3/uL (0.0-1.1); MONO % 8 % (0-9); NEUT # 3.2 x10^3uL (1.8-7.7); NEUT % 63 % (31-73); PLATELET COUNT 272 x10^3/uL (140-400); RED BLOOD COUNT 3.86 x10^6/uL (3.50-5.40); RED CELL DISTRIBUTION WIDTH 12.7 % (11.5-14.5); WHITE BLOOD COUNT 5.1 x10^3/uL (4.0-11.0)
[2019-01-01 07:48] LABS: ALBUMIN 3.9 g/dL (3.4-5.0); ALBUMIN/GLOBULIN RATIO 1.2 (1.0-1.7); CALCIUM 9.2 mg/dL (8.5-10.1); CREATININE 0.6 mg/dL (0.6-1.0); GFR 102.7; POTASSIUM 4.2 mmol/L (3.5-5.1); TOTAL BILIRUBIN 0.3 mg/dL (0.2-1.0); TOTAL PROTEIN 7.1 g/dL (6.4-8.2)
[2019-01-01] MEDS: ATORVASTATIN CALCIUM 10 MG TABLET. PO SCH (08:10)
[2019-01-01] MEDS: hydroCHLOROthiazide 25 MG TABLET PO SCH (08:10)
[2019-01-01] MEDS: MEMANTINE 10 MG TABLET. PO SCH (08:10)
[2019-01-01] MEDS: ASPIRIN 325 MG TABLET PO SCH (08:10)
[2019-01-01] MEDS: risperiDONE 1 MG TABLET. PO SCH (08:11)
[2019-01-01] MEDS: PANTOPRAZOLE 40 MG TABLET. PO SCH (08:11)
[2019-01-01] MEDS: LISINOPRIL 20 MG TABLET PO SCH (08:11)
[2019-01-01] MEDS: amLODIPine BESYLATE 5 MG TABLET PO SCH (08:11)
[2019-01-01] MEDS: carBAMazepine 200 MG TABLET PO SCH ×2 (08:12→19:43)
[2019-01-01] MEDS: CHOLECALCIFEROL (VITAMIN D3) 1,000 UNIT TABLET PO SCH (08:12)
[2019-01-01 13:02] LABS: CARBAM 7.2 mcg/mL (4.0-12.0)
[2019-01-01 15:34] VITALS: BP 135/81
[2019-01-01] MEDS: traZODone 50 MG TABLET. PO SCH (17:04)
[2019-01-01] MEDS: DONEPEZIL HCL 10 MG TABLET PO SCH (19:43)
[2019-01-01] MEDS: MEMANTINE 5 MG TABLET. PO SCH (19:43)
[2019-01-01] MEDS: risperiDONE 2 MG TABLET. PO SCH (19:43)
[2019-01-01] MEDS: traZODone 100 MG TABLET. PO SCH (19:43)
[2019-01-01] MEDS: DICLOFENAC SODIUM 1% TOPICAL GEL 100GM TUBE. TP SCH (21:03)
[2019-01-01] MEDS: ACETAMINOPHEN 325 MG TABLET PO PRN (21:19)
--- NOTE | 2019-01-01 22:33 | PDOC ---
Exam Note: [place] Note: Please also refer to the separate dictated note~for this date of service dictated separately.~Patient seen individually. Discussed the patient with Nursing staff reviewed the chart.~Reviewed interim history and current functioning. Reviewed vital signs,~Labs/ Radiology~and current medications noted below. Continue current treatment with the changes noted in the dictated addendum note Assessment: Vital Signs: Vital Signs Date Time Temp Pulse Resp B/P (MAP) Pulse Ox O2 Delivery O2 Flow Rate FiO2 01/01/19 15:34 98.0 92 20 135/81 (99) 96 Room Air I&O Intake and Output 01/01/19 07:00 Intake Total 1600 ml Balance 1600 ml Intake Oral 1600 ml # Voids 1 # Bowel Movements 1 Labs: Laboratory Tests Test 01/01/19 07:26 White Blood Count 5.1 x10^3/uL (4.0-11.0) Red Blood Count 3.86 x10^6/uL (3.50-5.40) Hemoglobin 12.0 g/dL (12.0-15.5) Hematocrit 35.4 % (36.0-47.0) L Mean Corpuscular Volume 92 fL (79-100) Mean Corpuscular Hemoglobin 31 pg (25-35) Mean Corpuscular Hemoglobin Concent 34 g/dL (31-37) Red Cell Distribution Width 12.7 % (11.5-14.5) Platelet Count 272 x10^3/uL (140-400) Neutrophils (%) (Auto) 63 % (31-73) Lymphocytes (%) (Auto) 26 % (24-48) Monocytes (%) (Auto) 8 % (0-9) Eosinophils (%) (Auto) 3 % (0-3) Basophils (%) (Auto) 1 % (0-3) Neutrophils # (Auto) 3.2 x10^3uL (1.8-7.7) Lymphocytes # (Auto) 1.3 x10^3/uL (1.0-4.8) Monocytes # (Auto) 0.4 x10^3/uL (0.0-1.1) Eosinophils # (Auto) 0.1 x10^3/uL (0.0-0.7) Basophils # (Auto) 0.0 x10^3/uL (0.0-0.2) Sodium Level 139 mmol/L (136-145) Potassium Level 4.2 mmol/L (3.5-5.1) Chloride Level 102 mmol/L (98-107) Carbon Dioxide Level 28 mmol/L (21-32) Anion Gap 9 (6-14) Blood Urea Nitrogen 15 mg/dL (7-20) Creatinine 0.6 mg/dL (0.6-1.0) Estimated GFR (Cockcroft-Gault) 102.7 BUN/Creatinine Ratio 25 (6-20) H Glucose Level 99 mg/dL (70-99) Calcium Level 9.2 mg/dL (8.5-10.1) Total Bilirubin 0.3 mg/dL (0.2-1.0) Aspartate Amino Transferase (AST) 15 U/L (15-37) Alanine Aminotransferase (ALT) 30 U/L (14-59) Alkaline Phosphatase 101 U/L (46-116) Total Protein 7.1 g/dL (6.4-8.2) Albumin 3.9 g/dL (3.4-5.0) Albumin/Globulin Ratio 1.2 (1.0-1.7) Carbamazepine (Tegretol) Level 7.2 mcg/mL (4.0-12.0) Carbamazepine Last Dose Date 12/31/18 Carbamazepine Last Dose Time 2100 Current Medications: Meds: Current Medications Aspirin (Oksana Aspirin) 325 mg DAILY PO Last administered on 01/01/19 08:10; Start 12/29/18 at 09:00 Carbamazepine (TEGretol) 100 mg BID PO Last administered on 12/29/18 19:18; Start 12/28/18 at 21:30; Stop 12/29/18 at 20:46; Status DC Lisinopril (Prinivil) 20 mg DAILY PO Last administered on 01/01/19 08:11; Start 12/29/18 at 09:00 Amlodipine Besylate (Norvasc) 5 mg DAILY PO ; Start 12/29/18 at 09:00; Stop at 09:00; Status DC Atorvastatin Calcium (Lipitor) 10 mg DAILY PO Last administered on 01/01/19at 08: 10; Start 12/29/18 at 09:00 Donepezil HCl (Aricept) 10 mg HS PO Last administered on 01/01/19at 19:43; Start 12/28/18 at 21:30 Memantine (Namenda) 10 mg DAILY PO Last administered on 01/01/19 08:10; Start 12/29/18 at 09:00 Pantoprazole Sodium (Protonix) 40 mg DAILY PO Last administered on 01/01/19 08: 11; Start 12/29/18 at 09:00 Risperidone (RisperDAL) 1 mg BID PO Last administered on 12/28/18 21:21; Start 12/28/18 at 21:30; Stop 12/29/18 at 00:37; Status DC Sennosides (Senna) 17.2 mg BID PO Last administered on 12/28/18 21:21; Start 12/28/18 at 21:30; Stop 12/29/18 at 00:37; Status DC Acetaminophen (Tylenol) 650 mg PRN Q6HRS PRN PO PAIN / TEMP Last administered on 01/01/19 21:19; Start 12/28/18 at 23:00 Multi-Ingredient Ointment (Analgesic [place]) 1 shekhar PRN QID PRN TP MUSCLE PAIN; Start 12/28/18 at 23:00 Al Hydroxide/Mg Hydroxide (Mylanta Plus Xs) 15 ml PRN AFTMEALHC PRN PO DYSPEPSIA; Start 12/28/18 at 23:00 Magnesium Hydroxide (Milk Of Magnesia) 2,400 mg PRN QHS PRN PO CONSTIPATION; Start 12/28/18 at 23:00 Diclofenac Sodium (Voltaren) 1 shekhar HS TP Last administered on 01/01/19 21:03; Start 12/29/18 at 21:00 Olanzapine (ZyPREXA ZYDIS) 5 mg PRN BID PRN PO MANIC DEPRESSION; Start at 09:00 Acyclovir (Zovirax) 400 mg PRN TID PRN PO COLD SORES; Start 12/29/18 at 09:00 Hydrochlorothiazide (Hydrodiuril) 25 mg BID PO Last administered on 12/29/18 08:27; Start 12/29/18 at 09:00; Stop 12/29/18 at 18:13; Status DC Memantine (Namenda) 5 mg QHS PO Last administered on 01/01/19 19:43; Start at 21:00 Artificial Tears (Artificial Tears) 1 drop PRN TID PRN OU DRY EYE; Start at 01:00 Risperidone (RisperDAL) 2 mg QHS PO Last administered on 01/01/19 19:43; Start 12/29/18 at 21:00 Simethicone (Gas-X) 80 mg PRN Q8HRS PRN PO GAS / BLOATING; Start 12/29/18 at 01 :00 Trazodone HCl (Desyrel) 100 mg QHS PO ; Start 12/29/18 at 21:00; Stop 12/29/18 at 21:00; Status DC Amlodipine Besylate (Norvasc) 10 mg DAILY PO Last administered on 01/01/19 08: 11; Start 12/29/18 at 09:00 Risperidone (RisperDAL) 1 mg DAILY PO Last administered on 01/01/19 08:11; Start 12/29/18 at 09:00 Vitamin D (Vitamin D3) 2,000 unit DAILY PO Last administered on 01/01/19 08:12 ; Start 12/29/18 at 09:00 Trazodone HCl (Desyrel) 100 mg QHS PO Last administered on 01/01/19 19:43; Start 12/29/18 at 03:00 Hydrochlorothiazide (Hydrodiuril) 25 mg DAILY PO Last administered on 01/01/19 08:10; Start 12/30/18 at 09:00 Carbamazepine (TEGretol) 200 mg BID PO Last administered on 01/01/19 19:43; Start 12/30/18 at 09:00 Carbamazepine (TEGretol) 100 mg 1X ONCE PO Last administered on 12/29/18 20: 56; Start 12/29/18 at 20:45; Stop 12/29/18 at 20:49; Status DC Vitamin D (Vitamin D3) 50,000 unit WEEKLY PO Last administered on 12/31/18 17: 14; Start 12/31/18 at 17:00 Trazodone HCl (Desyrel) 12.5 mg 0900,1700 PO Last administered on 01/01/19 17: 04; Start 01/01/19 at 17:00 Neomycin/ Polymyxin/ Bacitracin (Triple Antibiotic Ointment) 1 pkt PRN BID PRN TP CUTS/SKIN ABRASIONS; Start 01/01/19 at 21:15 Active Scripts Active Reported Hydrochlorothiazide Tablet (Hydrochlorothiazide) 25 Mg Tablet 25 Mg PO BID Trazodone Hcl 100 Mg Tablet 100 Mg PO HS Simethicone 100 Ml Liquid 125 Ml MC PRN Q8HRS PRN Systane Ultra 0.4-0.3% Eye Drp (Propylene Glycol/Peg 400) 10 Ml Drops 1 Drop EACHEYE PRN TID PRN Voltaren (Diclofenac Sodium) 100 Gm Gel..gram. 100 Gm TP HS Acyclovir 400 Mg Tablet 400 Mg PO PRN TID PRN Risperdal (Risperidone) 2 Mg Tablet 2 Mg PO QHS Namenda (Memantine Hcl) 10 Mg Tablet 5 Mg PO HS Zyprexa Zydis (Olanzapine) 5 Mg Tab.rapdis 5 Mg PO BID Risperidone 1 Mg Tablet 1 Mg PO DAILY Pantoprazole Sodium 40 Mg Tablet.dr 1 Tab PO DAILY Namenda (Memantine Hcl) 10 Mg Tablet 1 Tab PO DAILY Lisinopril 20 Mg Tablet 1 Tab PO BID Aricept (Donepezil Hcl) 10 Mg Tablet 1 Tab PO QHS Tegretol (Carbamazepine) 200 Mg Tablet 0.5 Tab PO BID Atorvastatin Calcium 10 Mg Tablet 1 Tab PO DAILY Aspirin 325 Mg Tablet 1 Tab PO DAILY Amlodipine Besylate 5 Mg Tablet 10 Mg PO DAILY I have reviewed the current psychotropics carefully including drug interactions. Risk benefit ratio favors no change other than as noted in my dictated progress note. Diagnosis: Problems: (1) Anxiety disorder (2) Bipolar affective, mixed, sev w/ psych (3) Impulse control disorder SOLO ALFARO MD Jan 01, 2019 22:33
--- NOTE | 2019-01-01 23:27 | PN ---
DATE: 12/31/2018 This late entry for 12/31/2018 covers elements not covered in my initial note. SUBJECTIVE: I met with the patient in the evening. The patient slept 5-3/4 hours previous night. She has been attention seeking per nursing report, somewhat grandiose, irritable, smashed her Styrofoam cup in frustration. I met with her in her room at length in the evening. REVIEW OF SYSTEMS: Ambulation impaired with walker. No CV, , pulmonary, eye system symptoms on review. MENTAL STATUS EXAM: Oriented reasonably. Speech coherent, somewhat pressured. Abstraction fair, computation impaired, language function intact, attention span short. Mood and affect still somewhat grandiose, labile. LABORATORY DATA: Reviewed. IMPRESSION: Bipolar 1 disorder, mixed with psychotic features. Rest unchanged. PLAN: Continue current psychotropics including gradually adjusting the Risperdal and Tegretol latter to reach therapeutic level. Rest unchanged for now. SOLO ALFARO MD DR: BO/tavo JOB#: [id number] / [id number]
[2019-01-02 05:41] VITALS: BP 133/79
[2019-01-02] MEDS: ATORVASTATIN CALCIUM 10 MG TABLET. PO SCH (07:23)
[2019-01-02] MEDS: traZODone 50 MG TABLET. PO SCH ×2 (07:23→16:05)
[2019-01-02] MEDS: risperiDONE 1 MG TABLET. PO SCH (07:23)
[2019-01-02] MEDS: LISINOPRIL 20 MG TABLET PO SCH (07:23)
[2019-01-02] MEDS: carBAMazepine 200 MG TABLET PO SCH ×2 (07:23→20:35)
[2019-01-02] MEDS: ASPIRIN 325 MG TABLET PO SCH (07:23)
[2019-01-02] MEDS: hydroCHLOROthiazide 25 MG TABLET PO SCH (07:24)
[2019-01-02] MEDS: amLODIPine BESYLATE 5 MG TABLET PO SCH (07:24)
[2019-01-02] MEDS: PANTOPRAZOLE 40 MG TABLET. PO SCH (07:24)
[2019-01-02] MEDS: CHOLECALCIFEROL (VITAMIN D3) 1,000 UNIT TABLET PO SCH (07:24)
[2019-01-02] MEDS: MEMANTINE 10 MG TABLET. PO SCH (07:24)
[2019-01-02] MEDS ORDERED: POLYVINYL ALCOHOL/POVIDONE/PF OPHTH SOLUTION DROPERETTE. OU SCH (09:00)
[2019-01-02] MEDS ORDERED: EYE-STREAM OPTH SOLUTION 30 ML BOTTLE. OU SCH (09:00)
[2019-01-02] MEDS: NEOMY/BACITR/POLYMYXIN OINT PACKET. TP PRN ×2 (16:05→21:00)
[2019-01-02 16:32] VITALS: BP 108/73
--- NOTE | 2019-01-02 20:30 | PN ---
DATE: 01/01/2019 PSYCHIATRIC PROGRESS NOTE SUBJECTIVE: The patient was seen on rounds on the evening of 01/01/2019. Discussed the patient with the nursing staff, reviewed the chart. This note covers elements not covered in my initial note of 01/01/2019. The patient slept 4-3/4 hours previous night. I met with her in her room. She is noted to be needy and hyperverbal, intrusive with other patients, was telling another patient not to drink her juice since it was "doped." I processed with her. Tegretol level 7.2 and we will repeat in 2 days. She has had some headaches and vomiting. REVIEW OF SYSTEMS: Other than above, no CV, , pulmonary, eye system symptoms on review. MENTAL STATUS EXAM: Reasonably oriented. Speech coherent, rapid at times. Abstraction fair, computation impaired, language function intact, attention span short. Mood and affect remains labile. LABORATORY DATA: Reviewed. IMPRESSION: Bipolar 1 disorder, mixed anxiety disorder, unspecified. PLAN: Continue as above. Start trazodone 12.5 mg 9 a.m., 5:00 p.m. for her anxiety. MAN RuthHeriberto ALFARO MD DR: BO/tavo JOB#: [id number] / [id number]
[2019-01-02] MEDS: MEMANTINE 5 MG TABLET. PO SCH (20:35)
[2019-01-02] MEDS: DONEPEZIL HCL 10 MG TABLET PO SCH (20:35)
[2019-01-02] MEDS: risperiDONE 2 MG TABLET. PO SCH (20:35)
[2019-01-02] MEDS: traZODone 100 MG TABLET. PO SCH (20:35)
[2019-01-02] MEDS: DICLOFENAC SODIUM 1% TOPICAL GEL 100GM TUBE. TP SCH (20:36)
--- NOTE | 2019-01-02 22:26 | PDOC ---
Exam Note: [place] Note: Please also refer to the separate dictated note~for this date of service dictated separately.~Patient seen individually. Discussed the patient with Nursing staff reviewed the chart.~Reviewed interim history and current functioning. Reviewed vital signs,~Labs/ Radiology~and current medications noted below. Continue current treatment with the changes noted in the dictated addendum note Assessment: Vital Signs: Vital Signs Date Time Temp Pulse Resp B/P (MAP) Pulse Ox O2 Delivery O2 Flow Rate FiO2 01/02/19 16:32 97.3 100 20 108/73 (85) 93 01/01/19 15:34 Room Air I&O Intake and Output 01/02/19 07:00 Intake Total 1440 ml Balance 1440 ml Intake Oral 1440 ml # Bowel Movements 1 Current Medications: Meds: Current Medications Aspirin (Oksana Aspirin) 325 mg DAILY PO Last administered on 01/02/19 07:23; Start 12/29/18 at 09:00 Carbamazepine (TEGretol) 100 mg BID PO Last administered on 12/29/18 19:18; Start 12/28/18 at 21:30; Stop 12/29/18 at 20:46; Status DC Lisinopril (Prinivil) 20 mg DAILY PO Last administered on 01/02/19 07:23; Start 12/29/18 at 09:00 Amlodipine Besylate (Norvasc) 5 mg DAILY PO ; Start 12/29/18 at 09:00; Stop at 09:00; Status DC Atorvastatin Calcium (Lipitor) 10 mg DAILY PO Last administered on 01/02/19 07: 23; Start 12/29/18 at 09:00 Donepezil HCl (Aricept) 10 mg HS PO Last administered on 01/02/19at 20:35; Start 12/28/18 at 21:30 Memantine (Namenda) 10 mg DAILY PO Last administered on 01/02/19 07:24; Start 12/29/18 at 09:00 Pantoprazole Sodium (Protonix) 40 mg DAILY PO Last administered on 01/02/19 07: 24; Start 12/29/18 at 09:00 Risperidone (RisperDAL) 1 mg BID PO Last administered on 12/28/18at 21:21; Start 12/28/18 at 21:30; Stop 12/29/18 at 00:37; Status DC Sennosides (Senna) 17.2 mg BID PO Last administered on 12/28/18at 21:21; Start 12/28/18 at 21:30; Stop 12/29/18 at 00:37; Status DC Acetaminophen (Tylenol) 650 mg PRN Q6HRS PRN PO PAIN / TEMP Last administered on 01/01/19 21:19; Start 12/28/18 at 23:00 Multi-Ingredient Ointment (Analgesic [place]) 1 shekhar PRN QID PRN TP MUSCLE PAIN; Start 12/28/18 at 23:00 Al Hydroxide/Mg Hydroxide (Mylanta Plus Xs) 15 ml PRN AFTMEALHC PRN PO DYSPEPSIA; Start 12/28/18 at 23:00 Magnesium Hydroxide (Milk Of Magnesia) 2,400 mg PRN QHS PRN PO CONSTIPATION; Start 12/28/18 at 23:00 Diclofenac Sodium (Voltaren) 1 shekhar HS TP Last administered on 01/02/19at 20:36; Start 12/29/18 at 21:00 Olanzapine (ZyPREXA ZYDIS) 5 mg PRN BID PRN PO MANIC DEPRESSION; Start at 09:00 Acyclovir (Zovirax) 400 mg PRN TID PRN PO COLD SORES; Start 12/29/18 at 09:00 Hydrochlorothiazide (Hydrodiuril) 25 mg BID PO Last administered on 12/29/18at 08:27; Start 12/29/18 at 09:00; Stop 12/29/18 at 18:13; Status DC Memantine (Namenda) 5 mg QHS PO Last administered on 01/02/19at 20:35; Start at 21:00 Artificial Tears (Artificial Tears) 1 drop PRN TID PRN OU DRY EYE; Start at 01:00 Risperidone (RisperDAL) 2 mg QHS PO Last administered on 01/02/19 20:35; Start 12/29/18 at 21:00 Simethicone (Gas-X) 80 mg PRN Q8HRS PRN PO GAS / BLOATING; Start 12/29/18 at 01 :00 Trazodone HCl (Desyrel) 100 mg QHS PO ; Start 12/29/18 at 21:00; Stop 12/29/18 at 21:00; Status DC Amlodipine Besylate (Norvasc) 10 mg DAILY PO Last administered on 01/02/19 07: 24; Start 12/29/18 at 09:00 Risperidone (RisperDAL) 1 mg DAILY PO Last administered on 01/02/19 07:23; Start 12/29/18 at 09:00 Vitamin D (Vitamin D3) 2,000 unit DAILY PO Last administered on 01/02/19 07:24 ; Start 12/29/18 at 09:00 Trazodone HCl (Desyrel) 100 mg QHS PO Last administered on 01/02/19 20:35; Start 12/29/18 at 03:00 Hydrochlorothiazide (Hydrodiuril) 25 mg DAILY PO Last administered on 01/02/19 07:24; Start 12/30/18 at 09:00 Carbamazepine (TEGretol) 200 mg BID PO Last administered on 01/02/19 20:35; Start 12/30/18 at 09:00 Carbamazepine (TEGretol) 100 mg 1X ONCE PO Last administered on 12/29/18 20: 56; Start 12/29/18 at 20:45; Stop 12/29/18 at 20:49; Status DC Vitamin D (Vitamin D3) 50,000 unit WEEKLY PO Last administered on 12/31/18 17: 14; Start 12/31/18 at 17:00 Trazodone HCl (Desyrel) 12.5 mg 0900,1700 PO Last administered on 01/02/19 16: 05; Start 01/01/19 at 17:00 Neomycin/ Polymyxin/ Bacitracin (Triple Antibiotic Ointment) 1 pkt PRN BID PRN TP CUTS/SKIN ABRASIONS Last administered on 01/02/19 16:05; Start 01/01/19 at 21: 15 Eye Irrigation Solution (Eye-Stream) 30 ml DAILY OU ; Start 01/02/19 at 09:00; Status Cancel Artificial Tears (Refresh Classic) 1 drop DAILY OU ; Start 01/02/19 at 09:00; Stop 01/02/19 at 09:01; Status DC Active Scripts Active Reported Hydrochlorothiazide Tablet (Hydrochlorothiazide) 25 Mg Tablet 25 Mg PO BID Trazodone Hcl 100 Mg Tablet 100 Mg PO HS Simethicone 100 Ml Liquid 125 Ml MC PRN Q8HRS PRN Systane Ultra 0.4-0.3% Eye Drp (Propylene Glycol/Peg 400) 10 Ml Drops 1 Drop EACHEYE PRN TID PRN Voltaren (Diclofenac Sodium) 100 Gm Gel..gram. 100 Gm TP HS Acyclovir 400 Mg Tablet 400 Mg PO PRN TID PRN Risperdal (Risperidone) 2 Mg Tablet 2 Mg PO QHS Namenda (Memantine Hcl) 10 Mg Tablet 5 Mg PO HS Zyprexa Zydis (Olanzapine) 5 Mg Tab.rapdis 5 Mg PO BID Risperidone 1 Mg Tablet 1 Mg PO DAILY Pantoprazole Sodium 40 Mg Tablet.dr 1 Tab PO DAILY Namenda (Memantine Hcl) 10 Mg Tablet 1 Tab PO DAILY Lisinopril 20 Mg Tablet 1 Tab PO BID Aricept (Donepezil Hcl) 10 Mg Tablet 1 Tab PO QHS Tegretol (Carbamazepine) 200 Mg Tablet 0.5 Tab PO BID Atorvastatin Calcium 10 Mg Tablet 1 Tab PO DAILY Aspirin 325 Mg Tablet 1 Tab PO DAILY Amlodipine Besylate 5 Mg Tablet 10 Mg PO DAILY I have reviewed the current psychotropics carefully including drug interactions. Risk benefit ratio favors no change other than as noted in my dictated progress note. Diagnosis: Problems: (1) Anxiety disorder (2) Bipolar affective, mixed, sev w/ psych (3) Impulse control disorder SOLO ALFARO MD Jan 02, 2019 22:26
[2019-01-03 05:54] VITALS: BP 119/62
[2019-01-03] MEDS: NEOMY/BACITR/POLYMYXIN OINT PACKET. TP PRN (06:12)
[2019-01-03] MEDS: LISINOPRIL 20 MG TABLET PO SCH (09:11)
[2019-01-03] MEDS: traZODone 50 MG TABLET. PO SCH ×2 (09:11→17:07)
[2019-01-03] MEDS: ATORVASTATIN CALCIUM 10 MG TABLET. PO SCH (09:11)
[2019-01-03] MEDS: CHOLECALCIFEROL (VITAMIN D3) 1,000 UNIT TABLET PO SCH (09:12)
[2019-01-03] MEDS: carBAMazepine 200 MG TABLET PO SCH ×2 (09:12→20:40)
[2019-01-03] MEDS: risperiDONE 1 MG TABLET. PO SCH (09:12)
[2019-01-03] MEDS: hydroCHLOROthiazide 25 MG TABLET PO SCH (09:12)
[2019-01-03] MEDS: PANTOPRAZOLE 40 MG TABLET. PO SCH (09:12)
[2019-01-03] MEDS: MEMANTINE 10 MG TABLET. PO SCH (09:13)
[2019-01-03] MEDS: ASPIRIN 325 MG TABLET PO SCH (09:13)
[2019-01-03] MEDS: amLODIPine BESYLATE 5 MG TABLET PO SCH (09:13)
[2019-01-03 16:06] VITALS: BP 138/89
[2019-01-03] MEDS: risperiDONE 2 MG TABLET. PO SCH (20:39)
[2019-01-03] MEDS: MEMANTINE 5 MG TABLET. PO SCH (20:40)
[2019-01-03] MEDS: traZODone 100 MG TABLET. PO SCH (20:40)
[2019-01-03] MEDS: DONEPEZIL HCL 10 MG TABLET PO SCH (20:40)
[2019-01-03] MEDS: DICLOFENAC SODIUM 1% TOPICAL GEL 100GM TUBE. TP SCH (20:41)
--- NOTE | 2019-01-03 22:33 | PDOC ---
Exam Note: [place] Note: Please also refer to the separate dictated note~for this date of service dictated separately.~Patient seen individually. Discussed the patient with Nursing staff reviewed the chart.~Reviewed interim history and current functioning. Reviewed vital signs,~Labs/ Radiology~and current medications noted below. Continue current treatment with the changes noted in the dictated addendum note Assessment: Vital Signs: Vital Signs Date Time Temp Pulse Resp B/P (MAP) Pulse Ox O2 Delivery O2 Flow Rate FiO2 01/03/19 16:06 98.5 92 19 138/89 (105) 98 Room Air I&O Intake and Output 01/03/19 07:00 Intake Total 1315 ml Balance 1315 ml Intake Oral 1315 ml Current Medications: Meds: Current Medications Aspirin (Oksana Aspirin) 325 mg DAILY PO Last administered on 01/03/19 09:13; Start 12/29/18 at 09:00 Carbamazepine (TEGretol) 100 mg BID PO Last administered on 12/29/18 19:18; Start 12/28/18 at 21:30; Stop 12/29/18 at 20:46; Status DC Lisinopril (Prinivil) 20 mg DAILY PO Last administered on 01/03/19 09:11; Start 12/29/18 at 09:00 Amlodipine Besylate (Norvasc) 5 mg DAILY PO ; Start 12/29/18 at 09:00; Stop at 09:00; Status DC Atorvastatin Calcium (Lipitor) 10 mg DAILY PO Last administered on 01/03/19 09: 11; Start 12/29/18 at 09:00 Donepezil HCl (Aricept) 10 mg HS PO Last administered on 01/03/19 20:40; Start 12/28/18 at 21:30 Memantine (Namenda) 10 mg DAILY PO Last administered on 01/03/19 09:13; Start 12/29/18 at 09:00 Pantoprazole Sodium (Protonix) 40 mg DAILY PO Last administered on 01/03/19 09: 12; Start 12/29/18 at 09:00 Risperidone (RisperDAL) 1 mg BID PO Last administered on 12/28/18 21:21; Start 12/28/18 at 21:30; Stop 12/29/18 at 00:37; Status DC Sennosides (Senna) 17.2 mg BID PO Last administered on 12/28/18 21:21; Start 12/28/18 at 21:30; Stop 12/29/18 at 00:37; Status DC Acetaminophen (Tylenol) 650 mg PRN Q6HRS PRN PO PAIN / TEMP Last administered on 01/01/19 21:19; Start 12/28/18 at 23:00 Multi-Ingredient Ointment (Analgesic [place]) 1 shekhar PRN QID PRN TP MUSCLE PAIN; Start 12/28/18 at 23:00 Al Hydroxide/Mg Hydroxide (Mylanta Plus Xs) 15 ml PRN AFTMEALHC PRN PO DYSPEPSIA; Start 12/28/18 at 23:00 Magnesium Hydroxide (Milk Of Magnesia) 2,400 mg PRN QHS PRN PO CONSTIPATION; Start 12/28/18 at 23:00 Diclofenac Sodium (Voltaren) 1 shekhar HS TP Last administered on 01/03/19 20:41; Start 12/29/18 at 21:00 Olanzapine (ZyPREXA ZYDIS) 5 mg PRN BID PRN PO MANIC DEPRESSION; Start at 09:00 Acyclovir (Zovirax) 400 mg PRN TID PRN PO COLD SORES; Start 12/29/18 at 09:00 Hydrochlorothiazide (Hydrodiuril) 25 mg BID PO Last administered on 12/29/18 08:27; Start 12/29/18 at 09:00; Stop 12/29/18 at 18:13; Status DC Memantine (Namenda) 5 mg QHS PO Last administered on 01/03/19at 20:40; Start at 21:00 Artificial Tears (Artificial Tears) 1 drop PRN TID PRN OU DRY EYE; Start at 01:00 Risperidone (RisperDAL) 2 mg QHS PO Last administered on 01/03/19 20:39; Start 12/29/18 at 21:00 Simethicone (Gas-X) 80 mg PRN Q8HRS PRN PO GAS / BLOATING; Start 12/29/18 at 01 :00 Trazodone HCl (Desyrel) 100 mg QHS PO ; Start 12/29/18 at 21:00; Stop 12/29/18 at 21:00; Status DC Amlodipine Besylate (Norvasc) 10 mg DAILY PO Last administered on 01/03/19 09: 13; Start 12/29/18 at 09:00 Risperidone (RisperDAL) 1 mg DAILY PO Last administered on 01/03/19 09:12; Start 12/29/18 at 09:00 Vitamin D (Vitamin D3) 2,000 unit DAILY PO Last administered on 01/03/19 09:12 ; Start 12/29/18 at 09:00 Trazodone HCl (Desyrel) 100 mg QHS PO Last administered on 01/03/19 20:40; Start 12/29/18 at 03:00 Hydrochlorothiazide (Hydrodiuril) 25 mg DAILY PO Last administered on 01/03/19 09:12; Start 12/30/18 at 09:00 Carbamazepine (TEGretol) 200 mg BID PO Last administered on 01/03/19 20:40; Start 12/30/18 at 09:00 Carbamazepine (TEGretol) 100 mg 1X ONCE PO Last administered on 12/29/18 20: 56; Start 12/29/18 at 20:45; Stop 12/29/18 at 20:49; Status DC Vitamin D (Vitamin D3) 50,000 unit WEEKLY PO Last administered on 12/31/18 17: 14; Start 12/31/18 at 17:00 Trazodone HCl (Desyrel) 12.5 mg 0900,1700 PO Last administered on 01/03/19 17: 07; Start 01/01/19 at 17:00 Neomycin/ Polymyxin/ Bacitracin (Triple Antibiotic Ointment) 1 pkt PRN BID PRN TP CUTS/SKIN ABRASIONS Last administered on 01/03/19 06:12; Start 01/01/19 at 21: 15 Eye Irrigation Solution (Eye-Stream) 30 ml DAILY OU ; Start 01/02/19 at 09:00; Status Cancel Artificial Tears (Refresh Classic) 1 drop DAILY OU ; Start 01/02/19 at 09:00; Stop 01/02/19 at 09:01; Status DC Active Scripts Active Reported Hydrochlorothiazide Tablet (Hydrochlorothiazide) 25 Mg Tablet 25 Mg PO BID Trazodone Hcl 100 Mg Tablet 100 Mg PO HS Simethicone 100 Ml Liquid 125 Ml MC PRN Q8HRS PRN Systane Ultra 0.4-0.3% Eye Drp (Propylene Glycol/Peg 400) 10 Ml Drops 1 Drop EACHEYE PRN TID PRN Voltaren (Diclofenac Sodium) 100 Gm Gel..gram. 100 Gm TP HS Acyclovir 400 Mg Tablet 400 Mg PO PRN TID PRN Risperdal (Risperidone) 2 Mg Tablet 2 Mg PO QHS Namenda (Memantine Hcl) 10 Mg Tablet 5 Mg PO HS Zyprexa Zydis (Olanzapine) 5 Mg Tab.rapdis 5 Mg PO BID Risperidone 1 Mg Tablet 1 Mg PO DAILY Pantoprazole Sodium 40 Mg Tablet.dr 1 Tab PO DAILY Namenda (Memantine Hcl) 10 Mg Tablet 1 Tab PO DAILY Lisinopril 20 Mg Tablet 1 Tab PO BID Aricept (Donepezil Hcl) 10 Mg Tablet 1 Tab PO QHS Tegretol (Carbamazepine) 200 Mg Tablet 0.5 Tab PO BID Atorvastatin Calcium 10 Mg Tablet 1 Tab PO DAILY Aspirin 325 Mg Tablet 1 Tab PO DAILY Amlodipine Besylate 5 Mg Tablet 10 Mg PO DAILY I have reviewed the current psychotropics carefully including drug interactions. Risk benefit ratio favors no change other than as noted in my dictated progress note. Diagnosis: Problems: (1) Anxiety disorder (2) Bipolar affective, mixed, sev w/ psych (3) Impulse control disorder SOLO ALFARO MD Jan 03, 2019 22:33
[2019-01-04 05:27] VITALS: BP 118/70
[2019-01-04] MEDS: amLODIPine BESYLATE 5 MG TABLET PO SCH (07:53)
[2019-01-04] MEDS: MEMANTINE 10 MG TABLET. PO SCH (07:53)
[2019-01-04] MEDS: risperiDONE 1 MG TABLET. PO SCH (07:53)
[2019-01-04] MEDS: CHOLECALCIFEROL (VITAMIN D3) 1,000 UNIT TABLET PO SCH (07:53)
[2019-01-04] MEDS: hydroCHLOROthiazide 25 MG TABLET PO SCH (07:53)
[2019-01-04] MEDS: ATORVASTATIN CALCIUM 10 MG TABLET. PO SCH (07:53)
[2019-01-04] MEDS: ASPIRIN 325 MG TABLET PO SCH (07:54)
[2019-01-04] MEDS: traZODone 50 MG TABLET. PO SCH ×2 (07:54→18:05)
[2019-01-04] MEDS: PANTOPRAZOLE 40 MG TABLET. PO SCH (07:54)
[2019-01-04] MEDS: LISINOPRIL 20 MG TABLET PO SCH (07:54)
[2019-01-04] MEDS: carBAMazepine 200 MG TABLET PO SCH ×2 (07:54→21:10)
[2019-01-04 16:11] VITALS: BP 120/82
--- NOTE | 2019-01-04 17:24 | PN ---
DATE: 01/02/2019 PSYCHIATRIC PROGRESS NOTE This late entry 01/02/2019 covers elements not covered in my initial note. SUBJECTIVE: I met with the patient in the evening. The patient slept 4-1/2 hours previous night. Per nursing report, the patient has been hyperverbal, somewhat attention seeking, but compliant with medications. Tegretol level is 7.2 and we will repeat it on the 01/06/2019. Since Tegretol can auto-metabolize and I would like to maintain the level between 8 and 10. REVIEW OF SYSTEMS: Ambulation impaired with walker. No CV, , pulmonary, eye, ENT system symptoms on review. MENTAL STATUS EXAM: Reasonably oriented. Speech is coherent, rapid at times. Abstraction fair, computation impaired, language function intact, attention span short. Mood and affect remain somewhat grandiose at times. LABORATORY DATA: Reviewed. IMPRESSION: Bipolar 1 disorder, mixed with psychotic features; anxiety disorder, unspecified; mild cognitive impairment; impulse control disorder. PLAN: Continue current psychotropics. Risperdal is at a decent dosage of 3 mg a day and I would prefer not to increase it. Repeat Tegretol level and then decide after that. She is allergic to LITHIUM and DEPAKOTE, which would have been good options for her bipolar disorder. SOLO ALFARO MD DR: BO/tavo JOB#: [id number] / [id number]
--- NOTE | 2019-01-04 18:50 | PN ---
DATE: 01/03/2019 PSYCHIATRIC PROGRESS NOTE This late entry 01/03/2019 covers elements not covered in my initial note. SUBJECTIVE: I met with the patient in the evening and staffed at a treatment team meeting with the entire team during the day. The patient remains somewhat hyperverbal, hypomanic, but better than before. Somewhat attention seeking. I was informed by social service staff daughter is pursuing guardianship and Dr. Tubbs will do psychological testing to assess for capacity to make decisions. Appetite 97%, sleeping about 5 hours a night. REVIEW OF SYSTEMS: No CV, , pulmonary, eye system symptoms on review. Impaired ambulation with walker. MENTAL STATUS EXAM: Reasonably oriented. Speech coherent, rapid at times. Abstraction fair, computation impaired, language function intact, attention span short. Mood and affect somewhat labile, hypomanic. LABORATORY DATA: Reviewed. IMPRESSION: Unchanged from initial note. PLAN: No change from initial note. MAN Alli ALFARO MD DR: BO/tavo JOB#: [id number] / [id number]
[2019-01-04] MEDS: DICLOFENAC SODIUM 1% TOPICAL GEL 100GM TUBE. TP SCH (21:00)
[2019-01-04] MEDS: traZODone 100 MG TABLET. PO SCH (21:10)
[2019-01-04] MEDS: ACETAMINOPHEN 325 MG TABLET PO PRN (21:10)
[2019-01-04] MEDS: MEMANTINE 5 MG TABLET. PO SCH (21:10)
[2019-01-04] MEDS: DONEPEZIL HCL 10 MG TABLET PO SCH (21:10)
[2019-01-04] MEDS: risperiDONE 2 MG TABLET. PO SCH (21:10)
--- NOTE | 2019-01-04 22:28 | PDOC ---
Exam Note: [place] Note: Please also refer to the separate dictated note~for this date of service dictated separately.~Patient seen individually. Discussed the patient with Nursing staff reviewed the chart.~Reviewed interim history and current functioning. Reviewed vital signs,~Labs/ Radiology~and current medications noted below. Continue current treatment with the changes noted in the dictated addendum note Assessment: Vital Signs: Vital Signs Date Time Temp Pulse Resp B/P (MAP) Pulse Ox O2 Delivery O2 Flow Rate FiO2 01/04/19 16:11 97.4 116 18 120/82 (95) 96 01/04/19 05:27 Room Air I&O Intake and Output 01/04/19 07:00 Intake Total 840 ml Balance 840 ml Intake Oral 840 ml Current Medications: Meds: Current Medications Aspirin (Oksana Aspirin) 325 mg DAILY PO Last administered on 01/04/19 07:54; Start 12/29/18 at 09:00 Carbamazepine (TEGretol) 100 mg BID PO Last administered on 12/29/18 19:18; Start 12/28/18 at 21:30; Stop 12/29/18 at 20:46; Status DC Lisinopril (Prinivil) 20 mg DAILY PO Last administered on 01/04/19 07:54; Start 12/29/18 at 09:00 Amlodipine Besylate (Norvasc) 5 mg DAILY PO ; Start 12/29/18 at 09:00; Stop at 09:00; Status DC Atorvastatin Calcium (Lipitor) 10 mg DAILY PO Last administered on 01/04/19at 07: 53; Start 12/29/18 at 09:00 Donepezil HCl (Aricept) 10 mg HS PO Last administered on 01/04/19at 21:10; Start 12/28/18 at 21:30 Memantine (Namenda) 10 mg DAILY PO Last administered on 01/04/19 07:53; Start 12/29/18 at 09:00 Pantoprazole Sodium (Protonix) 40 mg DAILY PO Last administered on 01/04/19 07: 54; Start 12/29/18 at 09:00 Risperidone (RisperDAL) 1 mg BID PO Last administered on 12/28/18 21:21; Start 12/28/18 at 21:30; Stop 12/29/18 at 00:37; Status DC Sennosides (Senna) 17.2 mg BID PO Last administered on 12/28/18 21:21; Start 12/28/18 at 21:30; Stop 12/29/18 at 00:37; Status DC Acetaminophen (Tylenol) 650 mg PRN Q6HRS PRN PO PAIN / TEMP Last administered on 01/04/19 21:10; Start 12/28/18 at 23:00 Multi-Ingredient Ointment (Analgesic [place]) 1 shekhar PRN QID PRN TP MUSCLE PAIN; Start 12/28/18 at 23:00 Al Hydroxide/Mg Hydroxide (Mylanta Plus Xs) 15 ml PRN AFTMEALHC PRN PO DYSPEPSIA; Start 12/28/18 at 23:00 Magnesium Hydroxide (Milk Of Magnesia) 2,400 mg PRN QHS PRN PO CONSTIPATION; Start 12/28/18 at 23:00 Diclofenac Sodium (Voltaren) 1 shekhar HS TP Last administered on 01/04/19 21:00; Start 12/29/18 at 21:00 Olanzapine (ZyPREXA ZYDIS) 5 mg PRN BID PRN PO MANIC DEPRESSION; Start at 09:00 Acyclovir (Zovirax) 400 mg PRN TID PRN PO COLD SORES; Start 12/29/18 at 09:00 Hydrochlorothiazide (Hydrodiuril) 25 mg BID PO Last administered on 12/29/18 08:27; Start 12/29/18 at 09:00; Stop 12/29/18 at 18:13; Status DC Memantine (Namenda) 5 mg QHS PO Last administered on 01/04/19 21:10; Start at 21:00 Artificial Tears (Artificial Tears) 1 drop PRN TID PRN OU DRY EYE; Start at 01:00 Risperidone (RisperDAL) 2 mg QHS PO Last administered on 01/04/19 21:10; Start 12/29/18 at 21:00 Simethicone (Gas-X) 80 mg PRN Q8HRS PRN PO GAS / BLOATING; Start 12/29/18 at 01 :00 Trazodone HCl (Desyrel) 100 mg QHS PO ; Start 12/29/18 at 21:00; Stop 12/29/18 at 21:00; Status DC Amlodipine Besylate (Norvasc) 10 mg DAILY PO Last administered on 01/04/19 07: 53; Start 12/29/18 at 09:00 Risperidone (RisperDAL) 1 mg DAILY PO Last administered on 01/04/19 07:53; Start 12/29/18 at 09:00 Vitamin D (Vitamin D3) 2,000 unit DAILY PO Last administered on 01/04/19 07:53 ; Start 12/29/18 at 09:00 Trazodone HCl (Desyrel) 100 mg QHS PO Last administered on 01/04/19 21:10; Start 12/29/18 at 03:00 Hydrochlorothiazide (Hydrodiuril) 25 mg DAILY PO Last administered on 01/04/19 07:53; Start 12/30/18 at 09:00 Carbamazepine (TEGretol) 200 mg BID PO Last administered on 01/04/19 21:10; Start 12/30/18 at 09:00 Carbamazepine (TEGretol) 100 mg 1X ONCE PO Last administered on 12/29/18 20: 56; Start 12/29/18 at 20:45; Stop 12/29/18 at 20:49; Status DC Vitamin D (Vitamin D3) 50,000 unit WEEKLY PO Last administered on 12/31/18 17: 14; Start 12/31/18 at 17:00 Trazodone HCl (Desyrel) 12.5 mg 0900,1700 PO Last administered on 01/04/19 18: 05; Start 01/01/19 at 17:00 Neomycin/ Polymyxin/ Bacitracin (Triple Antibiotic Ointment) 1 pkt PRN BID PRN TP CUTS/SKIN ABRASIONS Last administered on 01/03/19 06:12; Start 01/01/19 at 21: 15 Eye Irrigation Solution (Eye-Stream) 30 ml DAILY OU ; Start 01/02/19 at 09:00; Status Cancel Artificial Tears (Refresh Classic) 1 drop DAILY OU ; Start 01/02/19 at 09:00; Stop 01/02/19 at 09:01; Status DC Cetirizine HCl (ZyrTEC) 10 mg DAILY PO ; Start 01/05/19 at 09:00 Fluticasone Propionate (Flonase) 2 spray DAILY NS ; Start 01/05/19 at 09:00 Active Scripts Active Reported Hydrochlorothiazide Tablet (Hydrochlorothiazide) 25 Mg Tablet 25 Mg PO BID Trazodone Hcl 100 Mg Tablet 100 Mg PO HS Simethicone 100 Ml Liquid 125 Ml MC PRN Q8HRS PRN Systane Ultra 0.4-0.3% Eye Drp (Propylene Glycol/Peg 400) 10 Ml Drops 1 Drop EACHEYE PRN TID PRN Voltaren (Diclofenac Sodium) 100 Gm Gel..gram. 100 Gm TP HS Acyclovir 400 Mg Tablet 400 Mg PO PRN TID PRN Risperdal (Risperidone) 2 Mg Tablet 2 Mg PO QHS Namenda (Memantine Hcl) 10 Mg Tablet 5 Mg PO HS Zyprexa Zydis (Olanzapine) 5 Mg Tab.rapdis 5 Mg PO BID Risperidone 1 Mg Tablet 1 Mg PO DAILY Pantoprazole Sodium 40 Mg Tablet.dr 1 Tab PO DAILY Namenda (Memantine Hcl) 10 Mg Tablet 1 Tab PO DAILY Lisinopril 20 Mg Tablet 1 Tab PO BID Aricept (Donepezil Hcl) 10 Mg Tablet 1 Tab PO QHS Tegretol (Carbamazepine) 200 Mg Tablet 0.5 Tab PO BID Atorvastatin Calcium 10 Mg Tablet 1 Tab PO DAILY Aspirin 325 Mg Tablet 1 Tab PO DAILY Amlodipine Besylate 5 Mg Tablet 10 Mg PO DAILY I have reviewed the current psychotropics carefully including drug interactions. Risk benefit ratio favors no change other than as noted in my dictated progress note. Diagnosis: Problems: (1) Anxiety disorder (2) Bipolar affective, mixed, sev w/ psych (3) Impulse control disorder SOLO ALFARO MD Jan 04, 2019 22:28
[2019-01-05 05:56] VITALS: BP 111/62
[2019-01-05] MEDS: ACETAMINOPHEN 325 MG TABLET PO PRN (06:06)
[2019-01-05] MEDS: FLUTICASONE 50MCG/NASAL SPRAY 16GM BOTTLE. NS SCH (07:36)
[2019-01-05] MEDS: hydroCHLOROthiazide 25 MG TABLET PO SCH (07:37)
[2019-01-05] MEDS: carBAMazepine 200 MG TABLET PO SCH ×2 (07:37→19:10)
[2019-01-05] MEDS: risperiDONE 1 MG TABLET. PO SCH (07:37)
[2019-01-05] MEDS: ASPIRIN 325 MG TABLET PO SCH (07:37)
[2019-01-05] MEDS: MEMANTINE 10 MG TABLET. PO SCH (07:37)
[2019-01-05] MEDS: CHOLECALCIFEROL (VITAMIN D3) 1,000 UNIT TABLET PO SCH (07:37)
[2019-01-05] MEDS: PANTOPRAZOLE 40 MG TABLET. PO SCH (07:37)
[2019-01-05] MEDS: amLODIPine BESYLATE 5 MG TABLET PO SCH (07:38)
[2019-01-05] MEDS: LISINOPRIL 20 MG TABLET PO SCH (07:39)
[2019-01-05] MEDS: ATORVASTATIN CALCIUM 10 MG TABLET. PO SCH (07:39)
[2019-01-05] MEDS: CETIRIZINE HCL 10 MG TABLET PO SCH (07:40)
[2019-01-05] MEDS: traZODone 50 MG TABLET. PO SCH ×2 (07:40→17:00)
[2019-01-05 16:39] VITALS: BP 116/78
[2019-01-05] MEDS: DONEPEZIL HCL 10 MG TABLET PO SCH (19:09)
[2019-01-05] MEDS: risperiDONE 2 MG TABLET. PO SCH (19:10)
[2019-01-05] MEDS: traZODone 100 MG TABLET. PO SCH (19:10)
[2019-01-05] MEDS: MEMANTINE 5 MG TABLET. PO SCH (19:10)
[2019-01-05] MEDS: DICLOFENAC SODIUM 1% TOPICAL GEL 100GM TUBE. TP SCH (19:12)
[2019-01-06] MEDS: ACETAMINOPHEN 325 MG TABLET PO PRN (04:31)
[2019-01-06 05:36] VITALS: BP 142/90
[2019-01-06] MEDS: METHYL SALICYLATE/MENTHOL TOPICAL OINTMENT 29GM TUBE. TP PRN (06:04)
--- NOTE | 2019-01-06 06:36 | PN ---
DATE: 01/04/2019 PSYCHIATRIC PROGRESS NOTE This late entry, 01/04/2019, covers elements not covered in my initial note. SUBJECTIVE: I met with the patient in the evening. The patient slept for 3/4 hours previous night. She is noted by nursing staff to refer to certain staff members as liars. She is noted to be evasive and manipulative, somewhat hyperverbal, paranoid at times. REVIEW OF SYSTEMS: No CV, , pulmonary, eye system symptoms on review. Gait unsteady with walker. MENTAL STATUS EXAM: Reasonably oriented. Speech coherent, rapid. Abstraction fair, computation impaired, language function intact, attention span short. Mood and affect remains somewhat hypomanic. LABORATORY DATA: Reviewed. IMPRESSION: Unchanged from initial note. PLAN: We will repeat the Tegretol level on 01/06/2019 and then decide on the dosage. May need to increase Risperdal further. She has multiple allergies to psychotropics making it very challenging to find a mood stabilizer since she is allergic to lithium, Depakote amongst other medications. MAN Alli ALFARO MD DR: BO/tavo JOB#: [id number] / [id number]
[2019-01-06] MEDS: hydroCHLOROthiazide 25 MG TABLET PO SCH (07:16)
[2019-01-06] MEDS: traZODone 50 MG TABLET. PO SCH ×2 (07:16→17:00)
[2019-01-06] MEDS: ATORVASTATIN CALCIUM 10 MG TABLET. PO SCH (07:16)
[2019-01-06] MEDS: PANTOPRAZOLE 40 MG TABLET. PO SCH (07:17)
[2019-01-06] MEDS: carBAMazepine 200 MG TABLET PO SCH ×2 (07:17→19:29)
[2019-01-06] MEDS: CETIRIZINE HCL 10 MG TABLET PO SCH (07:17)
[2019-01-06] MEDS: risperiDONE 1 MG TABLET. PO SCH (07:17)
[2019-01-06] MEDS: LISINOPRIL 20 MG TABLET PO SCH (07:17)
[2019-01-06] MEDS: CHOLECALCIFEROL (VITAMIN D3) 1,000 UNIT TABLET PO SCH (07:17)
[2019-01-06] MEDS: MEMANTINE 10 MG TABLET. PO SCH (07:17)
[2019-01-06] MEDS: amLODIPine BESYLATE 5 MG TABLET PO SCH (07:17)
[2019-01-06] MEDS: FLUTICASONE 50MCG/NASAL SPRAY 16GM BOTTLE. NS SCH (07:18)
[2019-01-06] MEDS: ASPIRIN 325 MG TABLET PO SCH (07:20)
--- NOTE | 2019-01-06 09:36 | PDOC ---
Exam Note: [place] Note: Late entry for DOS 01/05/2019. Please also refer to the separate dictated note~ for this date of service dictated separately.~Patient seen individually. Discussed the patient with Nursing staff reviewed the chart.~Reviewed interim history and current functioning. Reviewed vital signs,~Labs/ Radiology~and current medications noted below. Continue current treatment with the changes noted in the dictated addendum note Assessment: Vital Signs: VS - Last 72 Hours, by Label Date Time Temp Pulse Resp B/P (MAP) Pulse Ox O2 Delivery O2 Flow Rate FiO2 01/06/19 07:17 94 142/90 01/06/19 07:17 94 142/90 01/06/19 05:36 97.3 94 20 142/90 (107) 97 01/05/19 16:39 98.0 99 20 116/78 (91) 96 Room Air 01/05/19 07:39 84 111/62 01/05/19 07:38 84 111/62 01/05/19 05:56 98.0 84 18 111/62 (78) 94 01/04/19 16:11 97.4 116 18 120/82 (95) 96 01/04/19 07:54 88 118/70 01/04/19 07:53 88 118/70 01/04/19 05:27 97.2 88 18 118/70 (86) 95 Room Air 01/03/19 16:06 98.5 92 19 138/89 (105) 98 Room Air Vital Signs Date Time Temp Pulse Resp B/P (MAP) Pulse Ox O2 Delivery O2 Flow Rate FiO2 01/06/19 07:17 94 142/90 01/06/19 05:36 97.3 20 97 01/05/19 16:39 Room Air I&O Intake and Output 01/06/19 06:59 Intake Total 2280 ml Balance 2280 ml Intake Oral 2280 ml # Voids 1 # Bowel Movements 1 Current Medications: Meds: Current Medications Aspirin (Oksana Aspirin) 325 mg DAILY PO Last administered on 01/06/19at 07:20; Start 12/29/18 at 09:00 Carbamazepine (TEGretol) 100 mg BID PO Last administered on 12/29/18at 19:18; Start 12/28/18 at 21:30; Stop 12/29/18 at 20:46; Status DC Lisinopril (Prinivil) 20 mg DAILY PO Last administered on 01/06/19 07:17; Start 12/29/18 at 09:00 Amlodipine Besylate (Norvasc) 5 mg DAILY PO ; Start 12/29/18 at 09:00; Stop at 09:00; Status DC Atorvastatin Calcium (Lipitor) 10 mg DAILY PO Last administered on 01/06/19 07: 16; Start 12/29/18 at 09:00 Donepezil HCl (Aricept) 10 mg HS PO Last administered on 01/05/19 19:09; Start 12/28/18 at 21:30 Memantine (Namenda) 10 mg DAILY PO Last administered on 01/06/19 07:17; Start 12/29/18 at 09:00 Pantoprazole Sodium (Protonix) 40 mg DAILY PO Last administered on 01/06/19 07: 17; Start 12/29/18 at 09:00 Risperidone (RisperDAL) 1 mg BID PO Last administered on 12/28/18 21:21; Start 12/28/18 at 21:30; Stop 12/29/18 at 00:37; Status DC Sennosides (Senna) 17.2 mg BID PO Last administered on 12/28/18 21:21; Start 12/28/18 at 21:30; Stop 12/29/18 at 00:37; Status DC Acetaminophen (Tylenol) 650 mg PRN Q6HRS PRN PO PAIN / TEMP Last administered on 01/06/19 04:31; Start 12/28/18 at 23:00 Multi-Ingredient Ointment (Analgesic [place]) 1 shekhar PRN QID PRN TP MUSCLE PAIN Last administered on 01/06/19 06:04; Start 12/28/18 at 23:00 Al Hydroxide/Mg Hydroxide (Mylanta Plus Xs) 15 ml PRN AFTMEALHC PRN PO DYSPEPSIA; Start 12/28/18 at 23:00 Magnesium Hydroxide (Milk Of Magnesia) 2,400 mg PRN QHS PRN PO CONSTIPATION; Start 12/28/18 at 23:00 Diclofenac Sodium (Voltaren) 1 shekhar HS TP Last administered on 01/05/19 19:12; Start 12/29/18 at 21:00 Olanzapine (ZyPREXA ZYDIS) 5 mg PRN BID PRN PO MANIC DEPRESSION; Start at 09:00 Acyclovir (Zovirax) 400 mg PRN TID PRN PO COLD SORES; Start 12/29/18 at 09:00 Hydrochlorothiazide (Hydrodiuril) 25 mg BID PO Last administered on 12/29/18at 08:27; Start 12/29/18 at 09:00; Stop 12/29/18 at 18:13; Status DC Memantine (Namenda) 5 mg QHS PO Last administered on 01/05/19 19:10; Start at 21:00 Artificial Tears (Artificial Tears) 1 drop PRN TID PRN OU DRY EYE; Start at 01:00 Risperidone (RisperDAL) 2 mg QHS PO Last administered on 01/05/19 19:10; Start 12/29/18 at 21:00 Simethicone (Gas-X) 80 mg PRN Q8HRS PRN PO GAS / BLOATING; Start 12/29/18 at 01 :00 Trazodone HCl (Desyrel) 100 mg QHS PO ; Start 12/29/18 at 21:00; Stop 12/29/18 at 21:00; Status DC Amlodipine Besylate (Norvasc) 10 mg DAILY PO Last administered on 01/06/19 07: 17; Start 12/29/18 at 09:00 Risperidone (RisperDAL) 1 mg DAILY PO Last administered on 01/06/19 07:17; Start 12/29/18 at 09:00 Vitamin D (Vitamin D3) 2,000 unit DAILY PO Last administered on 01/06/19 07:17 ; Start 12/29/18 at 09:00 Trazodone HCl (Desyrel) 100 mg QHS PO Last administered on 01/05/19 19:10; Start 12/29/18 at 03:00 Hydrochlorothiazide (Hydrodiuril) 25 mg DAILY PO Last administered on 01/06/19 07:16; Start 12/30/18 at 09:00 Carbamazepine (TEGretol) 200 mg BID PO Last administered on 01/06/19 07:17; Start 12/30/18 at 09:00 Carbamazepine (TEGretol) 100 mg 1X ONCE PO Last administered on 12/29/18at 20: 56; Start 12/29/18 at 20:45; Stop 12/29/18 at 20:49; Status DC Vitamin D (Vitamin D3) 50,000 unit WEEKLY PO Last administered on 12/31/18at 17: 14; Start 12/31/18 at 17:00 Trazodone HCl (Desyrel) 12.5 mg 0900,1700 PO Last administered on 01/06/19at 07: 16; Start 01/01/19 at 17:00 Neomycin/ Polymyxin/ Bacitracin (Triple Antibiotic Ointment) 1 pkt PRN BID PRN TP CUTS/SKIN ABRASIONS Last administered on 01/03/19 06:12; Start 01/01/19 at 21: 15 Eye Irrigation Solution (Eye-Stream) 30 ml DAILY OU ; Start 01/02/19 at 09:00; Status Cancel Artificial Tears (Refresh Classic) 1 drop DAILY OU ; Start 01/02/19 at 09:00; Stop 01/02/19 at 09:01; Status DC Cetirizine HCl (ZyrTEC) 10 mg DAILY PO Last administered on 01/06/19at 07:17; Start 01/05/19 at 09:00 Fluticasone Propionate (Flonase) 2 spray DAILY NS Last administered on at 07:18; Start 01/05/19 at 09:00 Active Scripts Active Reported Hydrochlorothiazide Tablet (Hydrochlorothiazide) 25 Mg Tablet 25 Mg PO BID Trazodone Hcl 100 Mg Tablet 100 Mg PO HS Simethicone 100 Ml Liquid 125 Ml MC PRN Q8HRS PRN Systane Ultra 0.4-0.3% Eye Drp (Propylene Glycol/Peg 400) 10 Ml Drops 1 Drop EACHEYE PRN TID PRN Voltaren (Diclofenac Sodium) 100 Gm Gel..gram. 100 Gm TP HS Acyclovir 400 Mg Tablet 400 Mg PO PRN TID PRN Risperdal (Risperidone) 2 Mg Tablet 2 Mg PO QHS Namenda (Memantine Hcl) 10 Mg Tablet 5 Mg PO HS Zyprexa Zydis (Olanzapine) 5 Mg Tab.rapdis 5 Mg PO BID Risperidone 1 Mg Tablet 1 Mg PO DAILY Pantoprazole Sodium 40 Mg Tablet.dr 1 Tab PO DAILY Namenda (Memantine Hcl) 10 Mg Tablet 1 Tab PO DAILY Lisinopril 20 Mg Tablet 1 Tab PO BID Aricept (Donepezil Hcl) 10 Mg Tablet 1 Tab PO QHS Tegretol (Carbamazepine) 200 Mg Tablet 0.5 Tab PO BID Atorvastatin Calcium 10 Mg Tablet 1 Tab PO DAILY Aspirin 325 Mg Tablet 1 Tab PO DAILY Amlodipine Besylate 5 Mg Tablet 10 Mg PO DAILY I have reviewed the current psychotropics carefully including drug interactions. Risk benefit ratio favors no change other than as noted in my dictated progress note. Diagnosis: Problems: (1) Anxiety disorder (2) Bipolar affective, mixed, sev w/ psych (3) Impulse control disorder SOLO ALFARO MD Jan 06, 2019 09:36
[2019-01-06 10:50] LABS: CARBAM 6.6 mcg/mL (4.0-12.0)
[2019-01-06] MEDS: traZODone 100 MG TABLET. PO SCH (19:29)
[2019-01-06] MEDS: DONEPEZIL HCL 10 MG TABLET PO SCH (19:29)
[2019-01-06] MEDS: risperiDONE 2 MG TABLET. PO SCH (19:29)
[2019-01-06] MEDS: MEMANTINE 5 MG TABLET. PO SCH (19:29)
[2019-01-06] MEDS: DICLOFENAC SODIUM 1% TOPICAL GEL 100GM TUBE. TP SCH (19:30)
[2019-01-06 21:00] VITALS: BP 115/60
[2019-01-06] MEDS: NEOMY/BACITR/POLYMYXIN OINT PACKET. TP PRN (21:54)
--- NOTE | 2019-01-06 22:46 | PDOC ---
Exam Note: [place] Note: Please also refer to the separate dictated note~for this date of service dictated separately.~Patient seen individually. Discussed the patient with Nursing staff reviewed the chart.~Reviewed interim history and current functioning. Reviewed vital signs,~Labs/ Radiology~and current medications noted below. Continue current treatment with the changes noted in the dictated addendum note Assessment: Vital Signs: Vital Signs Date Time Temp Pulse Resp B/P (MAP) Pulse Ox O2 Delivery O2 Flow Rate FiO2 01/06/19 07:17 94 142/90 01/06/19 05:36 97.3 20 97 01/05/19 16:39 Room Air I&O Intake and Output 01/06/19 07:00 Intake Total 2280 ml Balance 2280 ml Intake Oral 2280 ml # Voids 1 # Bowel Movements 1 Labs: Laboratory Tests Test 01/06/19 07:13 Carbamazepine (Tegretol) Level 6.6 mcg/mL (4.0-12.0) Carbamazepine Last Dose Date 01/05/19 Carbamazepine Last Dose Time 2100 Current Medications: Meds: Current Medications Aspirin (Oksana Aspirin) 325 mg DAILY PO Last administered on 01/06/19 07:20; Start 12/29/18 at 09:00 Carbamazepine (TEGretol) 100 mg BID PO Last administered on 12/29/18 19:18; Start 12/28/18 at 21:30; Stop 12/29/18 at 20:46; Status DC Lisinopril (Prinivil) 20 mg DAILY PO Last administered on 01/06/19 07:17; Start 12/29/18 at 09:00 Amlodipine Besylate (Norvasc) 5 mg DAILY PO ; Start 12/29/18 at 09:00; Stop at 09:00; Status DC Atorvastatin Calcium (Lipitor) 10 mg DAILY PO Last administered on 01/06/19 07: 16; Start 12/29/18 at 09:00 Donepezil HCl (Aricept) 10 mg HS PO Last administered on 01/06/19 19:29; Start 12/28/18 at 21:30 Memantine (Namenda) 10 mg DAILY PO Last administered on 01/06/19 07:17; Start 12/29/18 at 09:00 Pantoprazole Sodium (Protonix) 40 mg DAILY PO Last administered on 01/06/19 07: 17; Start 12/29/18 at 09:00 Risperidone (RisperDAL) 1 mg BID PO Last administered on 12/28/18 21:21; Start 12/28/18 at 21:30; Stop 12/29/18 at 00:37; Status DC Sennosides (Senna) 17.2 mg BID PO Last administered on 12/28/18 21:21; Start 12/28/18 at 21:30; Stop 12/29/18 at 00:37; Status DC Acetaminophen (Tylenol) 650 mg PRN Q6HRS PRN PO PAIN / TEMP Last administered on 01/06/19 04:31; Start 12/28/18 at 23:00 Multi-Ingredient Ointment (Analgesic [place]) 1 shekhar PRN QID PRN TP MUSCLE PAIN Last administered on 01/06/19 06:04; Start 12/28/18 at 23:00 Al Hydroxide/Mg Hydroxide (Mylanta Plus Xs) 15 ml PRN AFTMEALHC PRN PO DYSPEPSIA; Start 12/28/18 at 23:00 Magnesium Hydroxide (Milk Of Magnesia) 2,400 mg PRN QHS PRN PO CONSTIPATION; Start 12/28/18 at 23:00 Diclofenac Sodium (Voltaren) 1 shekhar HS TP Last administered on 01/06/19 19:30; Start 12/29/18 at 21:00 Olanzapine (ZyPREXA ZYDIS) 5 mg PRN BID PRN PO MANIC DEPRESSION; Start at 09:00 Acyclovir (Zovirax) 400 mg PRN TID PRN PO COLD SORES; Start 12/29/18 at 09:00 Hydrochlorothiazide (Hydrodiuril) 25 mg BID PO Last administered on 12/29/18 08:27; Start 12/29/18 at 09:00; Stop 12/29/18 at 18:13; Status DC Memantine (Namenda) 5 mg QHS PO Last administered on 01/06/19 19:29; Start at 21:00 Artificial Tears (Artificial Tears) 1 drop PRN TID PRN OU DRY EYE; Start at 01:00 Risperidone (RisperDAL) 2 mg QHS PO Last administered on 01/06/19 19:29; Start 12/29/18 at 21:00 Simethicone (Gas-X) 80 mg PRN Q8HRS PRN PO GAS / BLOATING; Start 12/29/18 at 01 :00 Trazodone HCl (Desyrel) 100 mg QHS PO ; Start 12/29/18 at 21:00; Stop 12/29/18 at 21:00; Status DC Amlodipine Besylate (Norvasc) 10 mg DAILY PO Last administered on 01/06/19 07: 17; Start 12/29/18 at 09:00 Risperidone (RisperDAL) 1 mg DAILY PO Last administered on 01/06/19 07:17; Start 12/29/18 at 09:00 Vitamin D (Vitamin D3) 2,000 unit DAILY PO Last administered on 01/06/19 07:17 ; Start 12/29/18 at 09:00 Trazodone HCl (Desyrel) 100 mg QHS PO Last administered on 01/06/19 19:29; Start 12/29/18 at 03:00 Hydrochlorothiazide (Hydrodiuril) 25 mg DAILY PO Last administered on 01/06/19 07:16; Start 12/30/18 at 09:00 Carbamazepine (TEGretol) 200 mg BID PO Last administered on 01/06/19 19:29; Start 12/30/18 at 09:00 Carbamazepine (TEGretol) 100 mg 1X ONCE PO Last administered on 12/29/18 20: 56; Start 12/29/18 at 20:45; Stop 12/29/18 at 20:49; Status DC Vitamin D (Vitamin D3) 50,000 unit WEEKLY PO Last administered on 12/31/18 17: 14; Start 12/31/18 at 17:00 Trazodone HCl (Desyrel) 12.5 mg 0900,1700 PO Last administered on 01/06/19 07: 16; Start 01/01/19 at 17:00 Neomycin/ Polymyxin/ Bacitracin (Triple Antibiotic Ointment) 1 pkt PRN BID PRN TP CUTS/SKIN ABRASIONS Last administered on 01/06/19 21:54; Start 01/01/19 at 21: 15 Eye Irrigation Solution (Eye-Stream) 30 ml DAILY OU ; Start 01/02/19 at 09:00; Status Cancel Artificial Tears (Refresh Classic) 1 drop DAILY OU ; Start 01/02/19 at 09:00; Stop 01/02/19 at 09:01; Status DC Cetirizine HCl (ZyrTEC) 10 mg DAILY PO Last administered on 01/06/19at 07:17; Start 01/05/19 at 09:00 Fluticasone Propionate (Flonase) 2 spray DAILY NS Last administered on at 07:18; Start 01/05/19 at 09:00 Active Scripts Active Reported Hydrochlorothiazide Tablet (Hydrochlorothiazide) 25 Mg Tablet 25 Mg PO BID Trazodone Hcl 100 Mg Tablet 100 Mg PO HS Simethicone 100 Ml Liquid 125 Ml MC PRN Q8HRS PRN Systane Ultra 0.4-0.3% Eye Drp (Propylene Glycol/Peg 400) 10 Ml Drops 1 Drop EACHEYE PRN TID PRN Voltaren (Diclofenac Sodium) 100 Gm Gel..gram. 100 Gm TP HS Acyclovir 400 Mg Tablet 400 Mg PO PRN TID PRN Risperdal (Risperidone) 2 Mg Tablet 2 Mg PO QHS Namenda (Memantine Hcl) 10 Mg Tablet 5 Mg PO HS Zyprexa Zydis (Olanzapine) 5 Mg Tab.rapdis 5 Mg PO BID Risperidone 1 Mg Tablet 1 Mg PO DAILY Pantoprazole Sodium 40 Mg Tablet.dr 1 Tab PO DAILY Namenda (Memantine Hcl) 10 Mg Tablet 1 Tab PO DAILY Lisinopril 20 Mg Tablet 1 Tab PO BID Aricept (Donepezil Hcl) 10 Mg Tablet 1 Tab PO QHS Tegretol (Carbamazepine) 200 Mg Tablet 0.5 Tab PO BID Atorvastatin Calcium 10 Mg Tablet 1 Tab PO DAILY Aspirin 325 Mg Tablet 1 Tab PO DAILY Amlodipine Besylate 5 Mg Tablet 10 Mg PO DAILY I have reviewed the current psychotropics carefully including drug interactions. Risk benefit ratio favors no change other than as noted in my dictated progress note. Diagnosis: Problems: (1) Anxiety disorder (2) Bipolar affective, mixed, sev w/ psych (3) Impulse control disorder SOLO ALFARO MD Jan 06, 2019 22:46
[2019-01-07] MEDS: ACETAMINOPHEN 325 MG TABLET PO PRN (00:14)
[2019-01-07 05:29] VITALS: BP 115/73
[2019-01-07] MEDS: NEOMY/BACITR/POLYMYXIN OINT PACKET. TP PRN ×2 (06:20→21:49)
[2019-01-07 08:19] LABS: BASO % 1 % (0-3); EOS # 0.1 x10^3/uL (0.0-0.7); EOS % 2 % (0-3); HEMATOCRIT 36.2 % (36.0-47.0); HEMOGLOBIN 12.3 g/dL (12.0-15.5); LYMPH # 1.4 x10^3/uL (1.0-4.8); LYMPH % 26 % (24-48); MEAN CORPUSCULAR HEMOGLOBIN 31 pg (25-35); MEAN CORPUSCULAR HGB CONC 34 g/dL (31-37); MEAN CORPUSCULAR VOLUME 92 fL (79-100); MONO # 0.4 x10^3/uL (0.0-1.1); MONO % 8 % (0-9); NEUT # 3.5 x10^3uL (1.8-7.7); NEUT % 64 % (31-73); PLATELET COUNT 267 x10^3/uL (140-400); RED BLOOD COUNT 3.96 x10^6/uL (3.50-5.40); RED CELL DISTRIBUTION WIDTH 12.7 % (11.5-14.5); WHITE BLOOD COUNT 5.5 x10^3/uL (4.0-11.0)
[2019-01-07 08:31] LABS: CALCIUM 9.3 mg/dL (8.5-10.1); CREATININE 0.6 mg/dL (0.6-1.0); GFR 102.7
[2019-01-07] MEDS: CETIRIZINE HCL 10 MG TABLET PO SCH (08:39)
[2019-01-07] MEDS: risperiDONE 1 MG TABLET. PO SCH (08:40)
[2019-01-07] MEDS: amLODIPine BESYLATE 5 MG TABLET PO SCH (08:40)
[2019-01-07] MEDS: hydroCHLOROthiazide 25 MG TABLET PO SCH (08:40)
[2019-01-07] MEDS: ASPIRIN 325 MG TABLET PO SCH (08:40)
[2019-01-07] MEDS: LISINOPRIL 20 MG TABLET PO SCH (08:40)
[2019-01-07] MEDS: CHOLECALCIFEROL (VITAMIN D3) 1,000 UNIT TABLET PO SCH (08:40)
[2019-01-07] MEDS: MEMANTINE 10 MG TABLET. PO SCH (08:42)
[2019-01-07] MEDS: traZODone 50 MG TABLET. PO SCH ×2 (08:42→17:57)
[2019-01-07] MEDS: PANTOPRAZOLE 40 MG TABLET. PO SCH (08:42)
[2019-01-07] MEDS: carBAMazepine 200 MG TABLET PO SCH ×2 (08:42→20:02)
[2019-01-07] MEDS: ATORVASTATIN CALCIUM 10 MG TABLET. PO SCH (08:42)
[2019-01-07] MEDS: CHOLECALCIFEROL (VITAMIN D3) 50,000 UNIT CAPSULE PO SCH (08:44)
[2019-01-07] MEDS: FLUTICASONE 50MCG/NASAL SPRAY 16GM BOTTLE. NS SCH (08:45)
[2019-01-07 16:07] VITALS: BP 118/80
[2019-01-07] MEDS: risperiDONE 2 MG TABLET. PO SCH (20:01)
[2019-01-07] MEDS: DONEPEZIL HCL 10 MG TABLET PO SCH (20:01)
[2019-01-07] MEDS: MEMANTINE 5 MG TABLET. PO SCH (20:01)
[2019-01-07] MEDS: traZODone 100 MG TABLET. PO SCH (20:02)
[2019-01-07] MEDS: TEMAZEPAM 15 MG CAPSULE PO SCH (20:03)
[2019-01-07] MEDS: DICLOFENAC SODIUM 1% TOPICAL GEL 100GM TUBE. TP SCH (20:04)
--- NOTE | 2019-01-07 20:17 | PN ---
DATE: 01/05/2019 PSYCHIATRIC PROGRESS NOTE This late entry 01/05/2019 covers elements not covered in my initial note. SUBJECTIVE: I met with the patient in the evening. The patient has been more intrusive, per nursing report, anxious, restless, somewhat hypomanic. REVIEW OF SYSTEMS: No CV, , pulmonary, eye, ENT system symptoms on review. MENTAL STATUS EXAM: Reasonably oriented. Speech coherent, rapid at times. Abstraction fair, computation impaired, language function intact, attention span short. Mood and affect remain somewhat grandiose. LABORATORY DATA: Reviewed. IMPRESSION: Unchanged from initial note. PLAN: No change from initial note. We will await a Tegretol level 01/06/2019 and then adjust with this, but itself may not be adequate as a mood stabilizer. SHE IS ALLERGIC TO MOST OF THE PSYCHOTROPICS complicating treatment options. MAN Alli ALFARO MD DR: BO/tavo JOB#: [id number] / [id number]
--- NOTE | 2019-01-07 20:21 | PN ---
DATE: 01/06/2019 PSYCHIATRIC PROGRESS NOTE This late entry 01/06/2019 covers elements not covered in my initial note. SUBJECTIVE: I met with the patient in the evening. The patient slept 3-3/4 hours previous night. She was quite hyperverbal in the evening as I met with her, [facility], [facility], mood lability. She did receive Zyprexa p.r.n. REVIEW OF SYSTEMS: No CV, , pulmonary, eye, ENT system symptoms on review. MENTAL STATUS EXAM: Oriented reasonably. Speech coherent, pressured at times. Abstraction fair, computation impaired, language function intact, attention span short. Mood and affect remain somewhat grandiose. We are awaiting a Tegretol level. IMPRESSION: Unchanged from initial note. PLAN: No change from initial note and adjust Tegretol post labs. MAN Alli ALFARO MD DR: BO/tavo JOB#: [id number] / [id number]
--- NOTE | 2019-01-07 22:36 | PDOC ---
Exam Note: [place] Note: Please also refer to the separate dictated note~for this date of service dictated separately.~Patient seen individually. Discussed the patient with Nursing staff reviewed the chart.~Reviewed interim history and current functioning. Reviewed vital signs,~Labs/ Radiology~and current medications noted below. Continue current treatment with the changes noted in the dictated addendum note Assessment: Vital Signs: Vital Signs Date Time Temp Pulse Resp B/P (MAP) Pulse Ox O2 Delivery O2 Flow Rate FiO2 01/07/19 16:07 97.3 96 16 118/80 (93) 96 01/06/19 21:00 Room Air I&O Intake and Output 01/07/19 06:59 Intake Total 480 ml Balance 480 ml Intake Oral 480 ml # Voids 1 Labs: Laboratory Tests Test 01/07/19 07:27 White Blood Count 5.5 x10^3/uL (4.0-11.0) Red Blood Count 3.96 x10^6/uL (3.50-5.40) Hemoglobin 12.3 g/dL (12.0-15.5) Hematocrit 36.2 % (36.0-47.0) Mean Corpuscular Volume 92 fL (79-100) Mean Corpuscular Hemoglobin 31 pg (25-35) Mean Corpuscular Hemoglobin Concent 34 g/dL (31-37) Red Cell Distribution Width 12.7 % (11.5-14.5) Platelet Count 267 x10^3/uL (140-400) Neutrophils (%) (Auto) 64 % (31-73) Lymphocytes (%) (Auto) 26 % (24-48) Monocytes (%) (Auto) 8 % (0-9) Eosinophils (%) (Auto) 2 % (0-3) Basophils (%) (Auto) 1 % (0-3) Neutrophils # (Auto) 3.5 x10^3uL (1.8-7.7) Lymphocytes # (Auto) 1.4 x10^3/uL (1.0-4.8) Monocytes # (Auto) 0.4 x10^3/uL (0.0-1.1) Eosinophils # (Auto) 0.1 x10^3/uL (0.0-0.7) Basophils # (Auto) 0.0 x10^3/uL (0.0-0.2) Sodium Level 138 mmol/L (136-145) Potassium Level 4.0 mmol/L (3.5-5.1) Chloride Level 100 mmol/L (98-107) Carbon Dioxide Level 29 mmol/L (21-32) Anion Gap 9 (6-14) Blood Urea Nitrogen 16 mg/dL (7-20) Creatinine 0.6 mg/dL (0.6-1.0) Estimated GFR (Cockcroft-Gault) 102.7 Glucose Level 91 mg/dL (70-99) Calcium Level 9.3 mg/dL (8.5-10.1) Current Medications: Meds: Current Medications Aspirin (K[place]ana Aspirin) 325 mg DAILY PO Last administered on 01/07/19 08:40; Start 12/29/18 at 09:00 Carbamazepine (TEGretol) 100 mg BID PO Last administered on 12/29/18 19:18; Start 12/28/18 at 21:30; Stop 12/29/18 at 20:46; Status DC Lisinopril (Prinivil) 20 mg DAILY PO Last administered on 01/07/19 08:40; Start 12/29/18 at 09:00 Amlodipine Besylate (Norvasc) 5 mg DAILY PO ; Start 12/29/18 at 09:00; Stop at 09:00; Status DC Atorvastatin Calcium (Lipitor) 10 mg DAILY PO Last administered on 01/07/19 08: 42; Start 12/29/18 at 09:00 Donepezil HCl (Aricept) 10 mg HS PO Last administered on 01/07/19 20:01; Start 12/28/18 at 21:30 Memantine (Namenda) 10 mg DAILY PO Last administered on 01/07/19 08:42; Start 12/29/18 at 09:00 Pantoprazole Sodium (Protonix) 40 mg DAILY PO Last administered on 01/07/19 08: 42; Start 12/29/18 at 09:00 Risperidone (RisperDAL) 1 mg BID PO Last administered on 12/28/18 21:21; Start 12/28/18 at 21:30; Stop 12/29/18 at 00:37; Status DC Sennosides (Senna) 17.2 mg BID PO Last administered on 3/29/19at 21:21; Start 12/28/18 at 21:30; Stop 12/29/18 at 00:37; Status DC Acetaminophen (Tylenol) 650 mg PRN Q6HRS PRN PO PAIN / TEMP Last administered on 01/07/19at 00:14; Start 12/28/18 at 23:00 Multi-Ingredient Ointment (Analgesic [place]) 1 shekhar PRN QID PRN TP MUSCLE PAIN Last administered on 01/06/19at 06:04; Start 12/28/18 at 23:00 Al Hydroxide/Mg Hydroxide (Mylanta Plus Xs) 15 ml PRN AFTMEALHC PRN PO DYSPEPSIA; Start 12/28/18 at 23:00 Magnesium Hydroxide (Milk Of Magnesia) 2,400 mg PRN QHS PRN PO CONSTIPATION; Start 12/28/18 at 23:00 Diclofenac Sodium (Voltaren) 1 shekhar HS TP Last administered on 01/07/19at 20:04; Start 12/29/18 at 21:00 Olanzapine (ZyPREXA ZYDIS) 5 mg PRN BID PRN PO MANIC DEPRESSION; Start at 09:00 Acyclovir (Zovirax) 400 mg PRN TID PRN PO COLD SORES; Start 12/29/18 at 09:00 Hydrochlorothiazide (Hydrodiuril) 25 mg BID PO Last administered on 12/29/18at 08:27; Start 12/29/18 at 09:00; Stop 12/29/18 at 18:13; Status DC Memantine (Namenda) 5 mg QHS PO Last administered on 01/07/19at 20:01; Start at 21:00 Artificial Tears (Artificial Tears) 1 drop PRN TID PRN OU DRY EYE; Start at 01:00 Risperidone (RisperDAL) 2 mg QHS PO Last administered on 01/07/19at 20:01; Start 12/29/18 at 21:00 Simethicone (Gas-X) 80 mg PRN Q8HRS PRN PO GAS / BLOATING; Start 12/29/18 at 01 :00 Trazodone HCl (Desyrel) 100 mg QHS PO ; Start 12/29/18 at 21:00; Stop 12/29/18 at 21:00; Status DC Amlodipine Besylate (Norvasc) 10 mg DAILY PO Last administered on 01/07/19 08: 40; Start 12/29/18 at 09:00 Risperidone (RisperDAL) 1 mg DAILY PO Last administered on 01/07/19 08:40; Start 12/29/18 at 09:00 Vitamin D (Vitamin D3) 2,000 unit DAILY PO Last administered on 01/07/19 08:40 ; Start 12/29/18 at 09:00 Trazodone HCl (Desyrel) 100 mg QHS PO Last administered on 01/07/19 20:02; Start 12/29/18 at 03:00 Hydrochlorothiazide (Hydrodiuril) 25 mg DAILY PO Last administered on 01/07/19 08:40; Start 12/30/18 at 09:00 Carbamazepine (TEGretol) 200 mg BID PO Last administered on 01/07/19 08:42; Start 12/30/18 at 09:00; Stop 01/07/19 at 17:15; Status DC Carbamazepine (TEGretol) 100 mg 1X ONCE PO Last administered on 12/29/18 20: 56; Start 12/29/18 at 20:45; Stop 12/29/18 at 20:49; Status DC Vitamin D (Vitamin D3) 50,000 unit WEEKLY PO Last administered on 01/07/19 08: 44; Start 12/31/18 at 17:00 Trazodone HCl (Desyrel) 12.5 mg 0900,1700 PO Last administered on 01/07/19 17: 57; Start 01/01/19 at 17:00 Neomycin/ Polymyxin/ Bacitracin (Triple Antibiotic Ointment) 1 pkt PRN BID PRN TP CUTS/SKIN ABRASIONS Last administered on 01/07/19 21:49; Start 01/01/19 at 21: 15 Eye Irrigation Solution (Eye-Stream) 30 ml DAILY OU ; Start 01/02/19 at 09:00; Status Cancel Artificial Tears (Refresh Classic) 1 drop DAILY OU ; Start 01/02/19 at 09:00; Stop 01/02/19 at 09:01; Status DC Cetirizine HCl (ZyrTEC) 10 mg DAILY PO Last administered on 01/07/19 08:39; Start 01/05/19 at 09:00 Fluticasone Propionate (Flonase) 2 spray DAILY NS Last administered on at 08:45; Start 01/05/19 at 09:00 Carbamazepine (TEGretol) 200 mg DAILY PO ; Start 01/08/19 at 09:00 Temazepam (Restoril) 15 mg QHS PO Last administered on 01/07/19at 20:03; Start at 21:00 Carbamazepine (TEGretol) 300 mg QHS PO Last administered on 01/07/19at 20:02; Start 01/07/19 at 21:00 Active Scripts Active Reported Hydrochlorothiazide Tablet (Hydrochlorothiazide) 25 Mg Tablet 25 Mg PO BID Trazodone Hcl 100 Mg Tablet 100 Mg PO HS Simethicone 100 Ml Liquid 125 Ml MC PRN Q8HRS PRN Systane Ultra 0.4-0.3% Eye Drp (Propylene Glycol/Peg 400) 10 Ml Drops 1 Drop EACHEYE PRN TID PRN Voltaren (Diclofenac Sodium) 100 Gm Gel..gram. 100 Gm TP HS Acyclovir 400 Mg Tablet 400 Mg PO PRN TID PRN Risperdal (Risperidone) 2 Mg Tablet 2 Mg PO QHS Namenda (Memantine Hcl) 10 Mg Tablet 5 Mg PO HS Zyprexa Zydis (Olanzapine) 5 Mg Tab.rapdis 5 Mg PO BID Risperidone 1 Mg Tablet 1 Mg PO DAILY Pantoprazole Sodium 40 Mg Tablet.dr 1 Tab PO DAILY Namenda (Memantine Hcl) 10 Mg Tablet 1 Tab PO DAILY Lisinopril 20 Mg Tablet 1 Tab PO BID Aricept (Donepezil Hcl) 10 Mg Tablet 1 Tab PO QHS Tegretol (Carbamazepine) 200 Mg Tablet 0.5 Tab PO BID Atorvastatin Calcium 10 Mg Tablet 1 Tab PO DAILY Aspirin 325 Mg Tablet 1 Tab PO DAILY Amlodipine Besylate 5 Mg Tablet 10 Mg PO DAILY I have reviewed the current psychotropics carefully including drug interactions. Risk benefit ratio favors no change other than as noted in my dictated progress note. Diagnosis: Problems: (1) Anxiety disorder (2) Bipolar affective, mixed, sev w/ psych (3) Impulse control disorder SOLO ALFARO MD Jan 07, 2019 22:36
[2019-01-08 05:57] VITALS: BP 135/83
[2019-01-08] MEDS: PANTOPRAZOLE 40 MG TABLET. PO SCH (08:11)
[2019-01-08] MEDS: hydroCHLOROthiazide 25 MG TABLET PO SCH (08:11)
[2019-01-08] MEDS: CETIRIZINE HCL 10 MG TABLET PO SCH (08:11)
[2019-01-08] MEDS: CHOLECALCIFEROL (VITAMIN D3) 1,000 UNIT TABLET PO SCH (08:12)
[2019-01-08] MEDS: ASPIRIN 325 MG TABLET PO SCH (08:12)
[2019-01-08] MEDS: traZODone 50 MG TABLET. PO SCH ×2 (08:12→17:31)
[2019-01-08] MEDS: LISINOPRIL 20 MG TABLET PO SCH (08:12)
[2019-01-08] MEDS: ATORVASTATIN CALCIUM 10 MG TABLET. PO SCH (08:13)
[2019-01-08] MEDS: risperiDONE 1 MG TABLET. PO SCH (08:13)
[2019-01-08] MEDS: MEMANTINE 10 MG TABLET. PO SCH (08:13)
[2019-01-08] MEDS: amLODIPine BESYLATE 5 MG TABLET PO SCH (08:13)
[2019-01-08] MEDS: carBAMazepine 200 MG TABLET PO SCH ×2 (08:15→20:23)
[2019-01-08] MEDS: FLUTICASONE 50MCG/NASAL SPRAY 16GM BOTTLE. NS SCH (08:15)
[2019-01-08 16:05] VITALS: BP 119/79
--- NOTE | 2019-01-08 20:06 | PN ---
DATE: 01/07/2019 PSYCHIATRIC PROGRESS NOTE This late entry 01/07/2019 covers elements not covered in my initial note. SUBJECTIVE: I met with the patient in the evening. The patient slept just 1-3/4 hours previous night. She is quite upset previous night. Manic grandiose, hyperverbal, disruptive, [facility] During the day on 01/07/2019, she was still manic, intrusive. Tegretol level is 6.6. We will increase it from 200 b.i.d. to 200 a.m. and 300 at bedtime. Check CBC, CMP, Tegretol level in 3 days. REVIEW OF SYSTEMS: No CV, , pulmonary, eye, ENT system symptoms on review. MENTAL STATUS EXAM: Oriented reasonably. Speech coherent, at times pressured. Abstraction fair, computation impaired, language function intact, attention span short. Mood and affect, somewhat grandiose. LABORATORY DATA: Reviewed. IMPRESSION: Unchanged from initial note. PLAN: No change from initial note other than an increase of Tegretol and we will add Restoril 15 mg at bedtime p.r.n. insomnia, january repeat x 1. SOLO ALFARO MD DR: BO/tavo JOB#: [id number] / [id number]
[2019-01-08] MEDS: traZODone 100 MG TABLET. PO SCH (20:22)
[2019-01-08] MEDS: MEMANTINE 5 MG TABLET. PO SCH (20:23)
[2019-01-08] MEDS: DONEPEZIL HCL 10 MG TABLET PO SCH (20:23)
[2019-01-08] MEDS: risperiDONE 2 MG TABLET. PO SCH (20:23)
[2019-01-08] MEDS: TEMAZEPAM 15 MG CAPSULE PO SCH (20:23)
[2019-01-08] MEDS: DICLOFENAC SODIUM 1% TOPICAL GEL 100GM TUBE. TP SCH (20:27)
--- NOTE | 2019-01-08 22:24 | PDOC ---
Exam Note: [place] Note: Please also refer to the separate dictated note~for this date of service dictated separately.~Patient seen individually. Discussed the patient with Nursing staff reviewed the chart.~Reviewed interim history and current functioning. Reviewed vital signs,~Labs/ Radiology~and current medications noted below. Continue current treatment with the changes noted in the dictated addendum note Assessment: Vital Signs: Vital Signs Date Time Temp Pulse Resp B/P (MAP) Pulse Ox O2 Delivery O2 Flow Rate FiO2 01/08/19 16:05 97.9 91 20 119/79 (92) 96 01/06/19 21:00 Room Air I&O Intake and Output 01/08/19 06:59 Intake Total 1200 ml Balance 1200 ml Intake Oral 1200 ml Current Medications: Meds: Current Medications Aspirin (Oksana Aspirin) 325 mg DAILY PO Last administered on 01/08/19 08:12; Start 12/29/18 at 09:00 Carbamazepine (TEGretol) 100 mg BID PO Last administered on 12/29/18 19:18; Start 12/28/18 at 21:30; Stop 12/29/18 at 20:46; Status DC Lisinopril (Prinivil) 20 mg DAILY PO Last administered on 01/08/19 08:12; Start 12/29/18 at 09:00 Amlodipine Besylate (Norvasc) 5 mg DAILY PO ; Start 12/29/18 at 09:00; Stop at 09:00; Status DC Atorvastatin Calcium (Lipitor) 10 mg DAILY PO Last administered on 01/08/19at 08: 13; Start 12/29/18 at 09:00 Donepezil HCl (Aricept) 10 mg HS PO Last administered on 01/08/19at 20:23; Start 12/28/18 at 21:30 Memantine (Namenda) 10 mg DAILY PO Last administered on 01/08/19 08:13; Start 12/29/18 at 09:00 Pantoprazole Sodium (Protonix) 40 mg DAILY PO Last administered on 01/08/19at 08: 11; Start 12/29/18 at 09:00 Risperidone (RisperDAL) 1 mg BID PO Last administered on 12/28/18at 21:21; Start 12/28/18 at 21:30; Stop 12/29/18 at 00:37; Status DC Sennosides (Senna) 17.2 mg BID PO Last administered on 12/28/18at 21:21; Start 12/28/18 at 21:30; Stop 12/29/18 at 00:37; Status DC Acetaminophen (Tylenol) 650 mg PRN Q6HRS PRN PO PAIN / TEMP Last administered on 01/07/19at 00:14; Start 12/28/18 at 23:00 Multi-Ingredient Ointment (Analgesic [place]) 1 shekhar PRN QID PRN TP MUSCLE PAIN Last administered on 01/06/19at 06:04; Start 12/28/18 at 23:00 Al Hydroxide/Mg Hydroxide (Mylanta Plus Xs) 15 ml PRN AFTMEALHC PRN PO DYSPEPSIA; Start 12/28/18 at 23:00 Magnesium Hydroxide (Milk Of Magnesia) 2,400 mg PRN QHS PRN PO CONSTIPATION; Start 12/28/18 at 23:00 Diclofenac Sodium (Voltaren) 1 shekhar HS TP Last administered on 01/08/19at 20:27; Start 12/29/18 at 21:00 Olanzapine (ZyPREXA ZYDIS) 5 mg PRN BID PRN PO MANIC DEPRESSION; Start at 09:00 Acyclovir (Zovirax) 400 mg PRN TID PRN PO COLD SORES; Start 12/29/18 at 09:00 Hydrochlorothiazide (Hydrodiuril) 25 mg BID PO Last administered on 12/29/18at 08:27; Start 12/29/18 at 09:00; Stop 12/29/18 at 18:13; Status DC Memantine (Namenda) 5 mg QHS PO Last administered on 01/08/19at 20:23; Start at 21:00 Artificial Tears (Artificial Tears) 1 drop PRN TID PRN OU DRY EYE; Start at 01:00 Risperidone (RisperDAL) 2 mg QHS PO Last administered on 01/08/19at 20:23; Start 12/29/18 at 21:00 Simethicone (Gas-X) 80 mg PRN Q8HRS PRN PO GAS / BLOATING; Start 12/29/18 at 01 :00 Trazodone HCl (Desyrel) 100 mg QHS PO ; Start 12/29/18 at 21:00; Stop 12/29/18 at 21:00; Status DC Amlodipine Besylate (Norvasc) 10 mg DAILY PO Last administered on 01/08/19 08: 13; Start 12/29/18 at 09:00 Risperidone (RisperDAL) 1 mg DAILY PO Last administered on 01/08/19 08:13; Start 12/29/18 at 09:00; Stop 01/08/19 at 19:22; Status DC Vitamin D (Vitamin D3) 2,000 unit DAILY PO Last administered on 01/08/19 08:12 ; Start 12/29/18 at 09:00 Trazodone HCl (Desyrel) 100 mg QHS PO Last administered on 01/08/19 20:22; Start 12/29/18 at 03:00 Hydrochlorothiazide (Hydrodiuril) 25 mg DAILY PO Last administered on 01/08/19 08:11; Start 12/30/18 at 09:00 Carbamazepine (TEGretol) 200 mg BID PO Last administered on 01/07/19 08:42; Start 12/30/18 at 09:00; Stop 01/07/19 at 17:15; Status DC Carbamazepine (TEGretol) 100 mg 1X ONCE PO Last administered on 12/29/18 20: 56; Start 12/29/18 at 20:45; Stop 12/29/18 at 20:49; Status DC Vitamin D (Vitamin D3) 50,000 unit WEEKLY PO Last administered on 01/07/19 08: 44; Start 12/31/18 at 17:00 Trazodone HCl (Desyrel) 12.5 mg 0900,1700 PO Last administered on 01/08/19 17: 31; Start 01/01/19 at 17:00 Neomycin/ Polymyxin/ Bacitracin (Triple Antibiotic Ointment) 1 pkt PRN BID PRN TP CUTS/SKIN ABRASIONS Last administered on 01/07/19 21:49; Start 01/01/19 at 21: 15 Eye Irrigation Solution (Eye-Stream) 30 ml DAILY OU ; Start 01/02/19 at 09:00; Status Cancel Artificial Tears (Refresh Classic) 1 drop DAILY OU ; Start 01/02/19 at 09:00; Stop 01/02/19 at 09:01; Status DC Cetirizine HCl (ZyrTEC) 10 mg DAILY PO Last administered on 01/08/19 08:11; Start 01/05/19 at 09:00 Fluticasone Propionate (Flonase) 2 spray DAILY NS Last administered on at 08:15; Start 01/05/19 at 09:00 Carbamazepine (TEGretol) 200 mg DAILY PO Last administered on 01/08/19 08:15; Start 01/08/19 at 09:00 Temazepam (Restoril) 15 mg QHS PO Last administered on 01/08/19 20:23; Start at 21:00 Carbamazepine (TEGretol) 300 mg QHS PO Last administered on 01/08/19 20:23; Start 01/07/19 at 21:00 Risperidone (RisperDAL) 1.5 mg DAILY PO ; Start 01/09/19 at 09:00 Active Scripts Active Reported Hydrochlorothiazide Tablet (Hydrochlorothiazide) 25 Mg Tablet 25 Mg PO BID Trazodone Hcl 100 Mg Tablet 100 Mg PO HS Simethicone 100 Ml Liquid 125 Ml MC PRN Q8HRS PRN Systane Ultra 0.4-0.3% Eye Drp (Propylene Glycol/Peg 400) 10 Ml Drops 1 Drop EACHEYE PRN TID PRN Voltaren (Diclofenac Sodium) 100 Gm Gel..gram. 100 Gm TP HS Acyclovir 400 Mg Tablet 400 Mg PO PRN TID PRN Risperdal (Risperidone) 2 Mg Tablet 2 Mg PO QHS Namenda (Memantine Hcl) 10 Mg Tablet 5 Mg PO HS Zyprexa Zydis (Olanzapine) 5 Mg Tab.rapdis 5 Mg PO BID Risperidone 1 Mg Tablet 1 Mg PO DAILY Pantoprazole Sodium 40 Mg Tablet.dr 1 Tab PO DAILY Namenda (Memantine Hcl) 10 Mg Tablet 1 Tab PO DAILY Lisinopril 20 Mg Tablet 1 Tab PO BID Aricept (Donepezil Hcl) 10 Mg Tablet 1 Tab PO QHS Tegretol (Carbamazepine) 200 Mg Tablet 0.5 Tab PO BID Atorvastatin Calcium 10 Mg Tablet 1 Tab PO DAILY Aspirin 325 Mg Tablet 1 Tab PO DAILY Amlodipine Besylate 5 Mg Tablet 10 Mg PO DAILY I have reviewed the current psychotropics carefully including drug interactions. Risk benefit ratio favors no change other than as noted in my dictated progress note. Diagnosis: Problems: (1) Anxiety disorder (2) Bipolar affective, mixed, sev w/ psych (3) Impulse control disorder SOLO ALFARO MD Jan 08, 2019 22:24
[2019-01-09 05:46] VITALS: BP 127/79
[2019-01-09] MEDS: CHOLECALCIFEROL (VITAMIN D3) 1,000 UNIT TABLET PO SCH (09:25)
[2019-01-09] MEDS: hydroCHLOROthiazide 25 MG TABLET PO SCH (09:25)
[2019-01-09] MEDS: MEMANTINE 10 MG TABLET. PO SCH (09:25)
[2019-01-09] MEDS: CETIRIZINE HCL 10 MG TABLET PO SCH (09:25)
[2019-01-09] MEDS: carBAMazepine 200 MG TABLET PO SCH ×2 (09:25→20:25)
[2019-01-09] MEDS: PANTOPRAZOLE 40 MG TABLET. PO SCH (09:25)
[2019-01-09] MEDS: amLODIPine BESYLATE 5 MG TABLET PO SCH (09:26)
[2019-01-09] MEDS: ATORVASTATIN CALCIUM 10 MG TABLET. PO SCH (09:26)
[2019-01-09] MEDS: traZODone 50 MG TABLET. PO SCH ×2 (09:26→17:09)
[2019-01-09] MEDS: ASPIRIN 325 MG TABLET PO SCH (09:26)
[2019-01-09] MEDS: FLUTICASONE 50MCG/NASAL SPRAY 16GM BOTTLE. NS SCH (09:27)
[2019-01-09] MEDS: LISINOPRIL 20 MG TABLET PO SCH (09:30)
[2019-01-09] MEDS: risperiDONE 1 MG TABLET. PO SCH (09:30)
[2019-01-09 16:29] VITALS: BP 137/80
[2019-01-09] MEDS: traZODone 100 MG TABLET. PO SCH (20:24)
[2019-01-09] MEDS: risperiDONE 2 MG TABLET. PO SCH (20:25)
[2019-01-09] MEDS: MEMANTINE 5 MG TABLET. PO SCH (20:25)
[2019-01-09] MEDS: DONEPEZIL HCL 10 MG TABLET PO SCH (20:25)
[2019-01-09] MEDS: TEMAZEPAM 15 MG CAPSULE PO SCH (20:26)
[2019-01-09] MEDS: DICLOFENAC SODIUM 1% TOPICAL GEL 100GM TUBE. TP SCH (21:00)
--- NOTE | 2019-01-09 22:27 | PN ---
DATE: 01/08/2019 This late entry for 01/08/2019 covers elements not covered in my initial note. SUBJECTIVE: I met with the patient in the evening at length. The patient slept 6 hours previous night. The patient remains somewhat hypomanic, intrusive, hyperverbal as I met with her. She was insistent on having oxygen while she was soaking her feet per nursing report. She is quite intrusive. REVIEW OF SYSTEMS: No CV, , pulmonary, eye, ENT system symptoms on review. MENTAL STATUS EXAM: Reasonably oriented. Speech coherent, rapid at times. Abstraction fair, computation impaired, language function intact. Mood and affect somewhat grandiose. No suicidal or homicidal ideation. LABORATORY DATA: Reviewed. IMPRESSION: Bipolar 1 disorder, manic with psychotic features. Rest unchanged. PLAN: Continue current psychotropics, but increase the Risperdal from a total of 3 mg a day to 3.5 mg a day. Tegretol level is therapeutic. MAN Alli ALFARO MD DR: BO/tavo JOB#: [id number] / [id number]
--- NOTE | 2019-01-09 22:29 | PDOC ---
Exam Note: [place] Note: Please also refer to the separate dictated note~for this date of service dictated separately.~Patient seen individually. Discussed the patient with Nursing staff reviewed the chart.~Reviewed interim history and current functioning. Reviewed vital signs,~Labs/ Radiology~and current medications noted below. Continue current treatment with the changes noted in the dictated addendum note Assessment: Vital Signs: Vital Signs Date Time Temp Pulse Resp B/P (MAP) Pulse Ox O2 Delivery O2 Flow Rate FiO2 01/09/19 16:29 98.4 78 20 137/80 (99) 97 01/06/19 21:00 Room Air I&O Intake and Output 01/09/19 07:00 Intake Total 1320 ml Balance 1320 ml Intake Oral 1320 ml Current Medications: Meds: Current Medications Aspirin (Oksana Aspirin) 325 mg DAILY PO Last administered on 01/09/19 09:26; Start 12/29/18 at 09:00 Carbamazepine (TEGretol) 100 mg BID PO Last administered on 12/29/18 19:18; Start 12/28/18 at 21:30; Stop 12/29/18 at 20:46; Status DC Lisinopril (Prinivil) 20 mg DAILY PO Last administered on 01/09/19 09:30; Start 12/29/18 at 09:00 Amlodipine Besylate (Norvasc) 5 mg DAILY PO ; Start 12/29/18 at 09:00; Stop at 09:00; Status DC Atorvastatin Calcium (Lipitor) 10 mg DAILY PO Last administered on 01/09/19 09 :26; Start 12/29/18 at 09:00 Donepezil HCl (Aricept) 10 mg HS PO Last administered on 01/09/19 20:25; Start 12/28/18 at 21:30 Memantine (Namenda) 10 mg DAILY PO Last administered on 01/09/19 09:25; Start 12/29/18 at 09:00 Pantoprazole Sodium (Protonix) 40 mg DAILY PO Last administered on 01/09/19 09 :25; Start 12/29/18 at 09:00 Risperidone (RisperDAL) 1 mg BID PO Last administered on 12/28/18 21:21; Start 12/28/18 at 21:30; Stop 12/29/18 at 00:37; Status DC Sennosides (Senna) 17.2 mg BID PO Last administered on 12/28/18 21:21; Start 12/28/18 at 21:30; Stop 12/29/18 at 00:37; Status DC Acetaminophen (Tylenol) 650 mg PRN Q6HRS PRN PO PAIN / TEMP Last administered on 01/07/19 00:14; Start 12/28/18 at 23:00 Multi-Ingredient Ointment (Analgesic [place]) 1 shekhar PRN QID PRN TP MUSCLE PAIN Last administered on 01/06/19 06:04; Start 12/28/18 at 23:00 Al Hydroxide/Mg Hydroxide (Mylanta Plus Xs) 15 ml PRN AFTMEALHC PRN PO DYSPEPSIA; Start 12/28/18 at 23:00 Magnesium Hydroxide (Milk Of Magnesia) 2,400 mg PRN QHS PRN PO CONSTIPATION; Start 12/28/18 at 23:00 Diclofenac Sodium (Voltaren) 1 shekhar HS TP Last administered on 01/08/19at 20:27; Start 12/29/18 at 21:00 Olanzapine (ZyPREXA ZYDIS) 5 mg PRN BID PRN PO MANIC DEPRESSION; Start at 09:00 Acyclovir (Zovirax) 400 mg PRN TID PRN PO COLD SORES; Start 12/29/18 at 09:00 Hydrochlorothiazide (Hydrodiuril) 25 mg BID PO Last administered on 12/29/18 08:27; Start 12/29/18 at 09:00; Stop 12/29/18 at 18:13; Status DC Memantine (Namenda) 5 mg QHS PO Last administered on 01/09/19at 20:25; Start at 21:00 Artificial Tears (Artificial Tears) 1 drop PRN TID PRN OU DRY EYE; Start at 01:00 Risperidone (RisperDAL) 2 mg QHS PO Last administered on 01/09/19at 20:25; Start 12/29/18 at 21:00 Simethicone (Gas-X) 80 mg PRN Q8HRS PRN PO GAS / BLOATING; Start 12/29/18 at 01 :00 Trazodone HCl (Desyrel) 100 mg QHS PO ; Start 12/29/18 at 21:00; Stop 12/29/18 at 21:00; Status DC Amlodipine Besylate (Norvasc) 10 mg DAILY PO Last administered on 01/09/19 09: 26; Start 12/29/18 at 09:00 Risperidone (RisperDAL) 1 mg DAILY PO Last administered on 01/08/19 08:13; Start 12/29/18 at 09:00; Stop 01/08/19 at 19:22; Status DC Vitamin D (Vitamin D3) 2,000 unit DAILY PO Last administered on 01/09/19 09:25 ; Start 12/29/18 at 09:00 Trazodone HCl (Desyrel) 100 mg QHS PO Last administered on 01/09/19 20:24; Start 12/29/18 at 03:00 Hydrochlorothiazide (Hydrodiuril) 25 mg DAILY PO Last administered on 09:25; Start 12/30/18 at 09:00 Carbamazepine (TEGretol) 200 mg BID PO Last administered on 01/07/19 08:42; Start 12/30/18 at 09:00; Stop 01/07/19 at 17:15; Status DC Carbamazepine (TEGretol) 100 mg 1X ONCE PO Last administered on 12/29/18 20: 56; Start 12/29/18 at 20:45; Stop 12/29/18 at 20:49; Status DC Vitamin D (Vitamin D3) 50,000 unit WEEKLY PO Last administered on 01/07/19 08: 44; Start 12/31/18 at 17:00 Trazodone HCl (Desyrel) 12.5 mg 0900,1700 PO Last administered on 01/09/19 17: 09; Start 01/01/19 at 17:00 Neomycin/ Polymyxin/ Bacitracin (Triple Antibiotic Ointment) 1 pkt PRN BID PRN TP CUTS/SKIN ABRASIONS Last administered on 01/07/19 21:49; Start 01/01/19 at 21: 15 Eye Irrigation Solution (Eye-Stream) 30 ml DAILY OU ; Start 01/02/19 at 09:00; Status Cancel Artificial Tears (Refresh Classic) 1 drop DAILY OU ; Start 01/02/19 at 09:00; Stop 01/02/19 at 09:01; Status DC Cetirizine HCl (ZyrTEC) 10 mg DAILY PO Last administered on 01/09/19 09:25; Start 01/05/19 at 09:00 Fluticasone Propionate (Flonase) 2 spray DAILY NS Last administered on 09:27; Start 01/05/19 at 09:00 Carbamazepine (TEGretol) 200 mg DAILY PO Last administered on 01/09/19 09:25; Start 01/08/19 at 09:00 Temazepam (Restoril) 15 mg QHS PO Last administered on 01/09/19 20:26; Start 01/07/19 at 21:00 Carbamazepine (TEGretol) 300 mg QHS PO Last administered on 01/09/19 20:25; Start 01/07/19 at 21:00 Risperidone (RisperDAL) 1.5 mg DAILY PO Last administered on 01/09/19 09:30; Start 01/09/19 at 09:00 Active Scripts Active Reported Hydrochlorothiazide Tablet (Hydrochlorothiazide) 25 Mg Tablet 25 Mg PO BID Trazodone Hcl 100 Mg Tablet 100 Mg PO HS Simethicone 100 Ml Liquid 125 Ml MC PRN Q8HRS PRN Systane Ultra 0.4-0.3% Eye Drp (Propylene Glycol/Peg 400) 10 Ml Drops 1 Drop EACHEYE PRN TID PRN Voltaren (Diclofenac Sodium) 100 Gm Gel..gram. 100 Gm TP HS Acyclovir 400 Mg Tablet 400 Mg PO PRN TID PRN Risperdal (Risperidone) 2 Mg Tablet 2 Mg PO QHS Namenda (Memantine Hcl) 10 Mg Tablet 5 Mg PO HS Zyprexa Zydis (Olanzapine) 5 Mg Tab.rapdis 5 Mg PO BID Risperidone 1 Mg Tablet 1 Mg PO DAILY Pantoprazole Sodium 40 Mg Tablet.dr 1 Tab PO DAILY Namenda (Memantine Hcl) 10 Mg Tablet 1 Tab PO DAILY Lisinopril 20 Mg Tablet 1 Tab PO BID Aricept (Donepezil Hcl) 10 Mg Tablet 1 Tab PO QHS Tegretol (Carbamazepine) 200 Mg Tablet 0.5 Tab PO BID Atorvastatin Calcium 10 Mg Tablet 1 Tab PO DAILY Aspirin 325 Mg Tablet 1 Tab PO DAILY Amlodipine Besylate 5 Mg Tablet 10 Mg PO DAILY I have reviewed the current psychotropics carefully including drug interactions. Risk benefit ratio favors no change other than as noted in my dictated progress note. Diagnosis: Problems: (1) Anxiety disorder (2) Bipolar affective, mixed, sev w/ psych (3) Impulse control disorder SOLO ALFARO MD Jan 09, 2019 22:29
[2019-01-10 05:47] VITALS: BP 107/72
[2019-01-10 07:30] LABS: BASO % 1 % (0-3); EOS # 0.1 x10^3/uL (0.0-0.7); EOS % 2 % (0-3); HEMATOCRIT 35.6 % (36.0-47.0); HEMOGLOBIN 12.3 g/dL (12.0-15.5); LYMPH # 1.2 x10^3/uL (1.0-4.8); LYMPH % 22 % (24-48); MEAN CORPUSCULAR HEMOGLOBIN 31 pg (25-35); MEAN CORPUSCULAR HGB CONC 34 g/dL (31-37); MEAN CORPUSCULAR VOLUME 91 fL (79-100); MONO # 0.4 x10^3/uL (0.0-1.1); MONO % 7 % (0-9); NEUT # 3.8 x10^3uL (1.8-7.7); NEUT % 68 % (31-73); PLATELET COUNT 251 x10^3/uL (140-400); RED BLOOD COUNT 3.93 x10^6/uL (3.50-5.40); RED CELL DISTRIBUTION WIDTH 12.5 % (11.5-14.5); WHITE BLOOD COUNT 5.5 x10^3/uL (4.0-11.0)
[2019-01-10] MEDS: CHOLECALCIFEROL (VITAMIN D3) 1,000 UNIT TABLET PO SCH (07:32)
[2019-01-10] MEDS: risperiDONE 1 MG TABLET. PO SCH (07:32)
[2019-01-10] MEDS: LISINOPRIL 20 MG TABLET PO SCH (07:33)
[2019-01-10] MEDS: traZODone 50 MG TABLET. PO SCH ×2 (07:33→17:00)
[2019-01-10] MEDS: ASPIRIN 325 MG TABLET PO SCH (07:33)
[2019-01-10] MEDS: hydroCHLOROthiazide 25 MG TABLET PO SCH (07:33)
[2019-01-10] MEDS: ATORVASTATIN CALCIUM 10 MG TABLET. PO SCH (07:34)
[2019-01-10] MEDS: MEMANTINE 10 MG TABLET. PO SCH (07:34)
[2019-01-10] MEDS: carBAMazepine 200 MG TABLET PO SCH ×2 (07:34→19:42)
[2019-01-10] MEDS: amLODIPine BESYLATE 5 MG TABLET PO SCH (07:35)
[2019-01-10] MEDS: FLUTICASONE 50MCG/NASAL SPRAY 16GM BOTTLE. NS SCH (07:35)
[2019-01-10] MEDS: PANTOPRAZOLE 40 MG TABLET. PO SCH (07:35)
[2019-01-10 07:43] LABS: ALBUMIN 3.7 g/dL (3.4-5.0); ALBUMIN/GLOBULIN RATIO 1.2 (1.0-1.7); CALCIUM 8.9 mg/dL (8.5-10.1); CREATININE 0.6 mg/dL (0.6-1.0); GFR 102.7; POTASSIUM 3.8 mmol/L (3.5-5.1); TOTAL BILIRUBIN 0.2 mg/dL (0.2-1.0); TOTAL PROTEIN 6.9 g/dL (6.4-8.2)
[2019-01-10] MEDS: ACETAMINOPHEN 325 MG TABLET PO PRN (10:25)
[2019-01-10 16:10] VITALS: BP_SYST 103; BP_SYST 111; BP_DIAS 67; BP_DIAS 68
[2019-01-10] MEDS: MEMANTINE 5 MG TABLET. PO SCH (19:41)
[2019-01-10] MEDS: traZODone 100 MG TABLET. PO SCH (19:41)
[2019-01-10] MEDS: risperiDONE 2 MG TABLET. PO SCH (19:42)
[2019-01-10] MEDS: DONEPEZIL HCL 10 MG TABLET PO SCH (19:42)
[2019-01-10] MEDS: DICLOFENAC SODIUM 1% TOPICAL GEL 100GM TUBE. TP SCH (19:44)
[2019-01-10] MEDS: TEMAZEPAM 15 MG CAPSULE PO SCH (19:44)
[2019-01-10] MEDS: CETIRIZINE HCL 10 MG TABLET PO SCH (19:44)
[2019-01-10] MEDS: METHYL SALICYLATE/MENTHOL TOPICAL OINTMENT 29GM TUBE. TP PRN (20:12)
--- NOTE | 2019-01-10 22:36 | PDOC ---
Exam Note: [place] Note: Please also refer to the separate dictated note~for this date of service dictated separately.~Patient seen individually. Discussed the patient with Nursing staff reviewed the chart.~Reviewed interim history and current functioning. Reviewed vital signs,~Labs/ Radiology~and current medications noted below. Continue current treatment with the changes noted in the dictated addendum note Assessment: Vital Signs: Vital Signs Date Time Temp Pulse Resp B/P (MAP) Pulse Ox O2 Delivery O2 Flow Rate FiO2 01/10/19 16:10 97.4 95 18 111/68 (82) 91 01/06/19 21:00 Room Air I&O Intake and Output 01/10/19 07:00 Intake Total 1440 ml Balance 1440 ml Intake Oral 1440 ml Labs: Laboratory Tests Test 01/10/19 07:15 White Blood Count 5.5 x10^3/uL (4.0-11.0) Red Blood Count 3.93 x10^6/uL (3.50-5.40) Hemoglobin 12.3 g/dL (12.0-15.5) Hematocrit 35.6 % (36.0-47.0) L Mean Corpuscular Volume 91 fL (79-100) Mean Corpuscular Hemoglobin 31 pg (25-35) Mean Corpuscular Hemoglobin Concent 34 g/dL (31-37) Red Cell Distribution Width 12.5 % (11.5-14.5) Platelet Count 251 x10^3/uL (140-400) Neutrophils (%) (Auto) 68 % (31-73) Lymphocytes (%) (Auto) 22 % (24-48) L Monocytes (%) (Auto) 7 % (0-9) Eosinophils (%) (Auto) 2 % (0-3) Basophils (%) (Auto) 1 % (0-3) Neutrophils # (Auto) 3.8 x10^3uL (1.8-7.7) Lymphocytes # (Auto) 1.2 x10^3/uL (1.0-4.8) Monocytes # (Auto) 0.4 x10^3/uL (0.0-1.1) Eosinophils # (Auto) 0.1 x10^3/uL (0.0-0.7) Basophils # (Auto) 0.0 x10^3/uL (0.0-0.2) Sodium Level 135 mmol/L (136-145) L Potassium Level 3.8 mmol/L (3.5-5.1) Chloride Level 98 mmol/L (98-107) Carbon Dioxide Level 29 mmol/L (21-32) Anion Gap 8 (6-14) Blood Urea Nitrogen 14 mg/dL (7-20) Creatinine 0.6 mg/dL (0.6-1.0) Estimated GFR (Cockcroft-Gault) 102.7 BUN/Creatinine Ratio 23 (6-20) H Glucose Level 112 mg/dL (70-99) H Calcium Level 8.9 mg/dL (8.5-10.1) Total Bilirubin 0.2 mg/dL (0.2-1.0) Aspartate Amino Transferase (AST) 20 U/L (15-37) Alanine Aminotransferase (ALT) 32 U/L (14-59) Alkaline Phosphatase 109 U/L (46-116) Total Protein 6.9 g/dL (6.4-8.2) Albumin 3.7 g/dL (3.4-5.0) Albumin/Globulin Ratio 1.2 (1.0-1.7) Current Medications: Meds: Current Medications Aspirin (ZENT Aspirin) 325 mg DAILY PO Last administered on 01/10/19 07:33; Start 12/29/18 at 09:00 Carbamazepine (TEGretol) 100 mg BID PO Last administered on 12/29/18 19:18; Start 12/28/18 at 21:30; Stop 12/29/18 at 20:46; Status DC Lisinopril (Prinivil) 20 mg DAILY PO Last administered on 01/10/19 07:33; Start 12/29/18 at 09:00 Amlodipine Besylate (Norvasc) 5 mg DAILY PO ; Start 12/29/18 at 09:00; Stop at 09:00; Status DC Atorvastatin Calcium (Lipitor) 10 mg DAILY PO Last administered on 01/10/19 07 :34; Start 12/29/18 at 09:00 Donepezil HCl (Aricept) 10 mg HS PO Last administered on 01/10/19 19:42; Start 12/28/18 at 21:30 Memantine (Namenda) 10 mg DAILY PO Last administered on 01/10/19 07:34; Start 12/29/18 at 09:00 Pantoprazole Sodium (Protonix) 40 mg DAILY PO Last administered on 01/10/19 07 :35; Start 12/29/18 at 09:00 Risperidone (RisperDAL) 1 mg BID PO Last administered on 12/28/18 21:21; Start 12/28/18 at 21:30; Stop 12/29/18 at 00:37; Status DC Sennosides (Senna) 17.2 mg BID PO Last administered on 12/28/18 21:21; Start 12/28/18 at 21:30; Stop 12/29/18 at 00:37; Status DC Acetaminophen (Tylenol) 650 mg PRN Q6HRS PRN PO PAIN / TEMP Last administered on 01/10/19 10:25; Start 12/28/18 at 23:00 Multi-Ingredient Ointment (Analgesic [place]) 1 shekhar PRN QID PRN TP MUSCLE PAIN Last administered on 01/10/19 20:12; Start 12/28/18 at 23:00 Al Hydroxide/Mg Hydroxide (Mylanta Plus Xs) 15 ml PRN AFTMEALHC PRN PO DYSPEPSIA; Start 12/28/18 at 23:00 Magnesium Hydroxide (Milk Of Magnesia) 2,400 mg PRN QHS PRN PO CONSTIPATION; Start 12/28/18 at 23:00 Diclofenac Sodium (Voltaren) 1 shekhar HS TP Last administered on 01/10/19 19:44; Start 12/29/18 at 21:00 Olanzapine (ZyPREXA ZYDIS) 5 mg PRN BID PRN PO MANIC DEPRESSION Last administered on 01/10/19 10:25; Start 12/29/18 at 09:00 Acyclovir (Zovirax) 400 mg PRN TID PRN PO COLD SORES; Start 12/29/18 at 09:00 Hydrochlorothiazide (Hydrodiuril) 25 mg BID PO Last administered on 12/29/18 08:27; Start 12/29/18 at 09:00; Stop 12/29/18 at 18:13; Status DC Memantine (Namenda) 5 mg QHS PO Last administered on 01/10/19 19:41; Start at 21:00 Artificial Tears (Artificial Tears) 1 drop PRN TID PRN OU DRY EYE; Start at 01:00 Risperidone (RisperDAL) 2 mg QHS PO Last administered on 01/10/19 19:42; Start 12/29/18 at 21:00 Simethicone (Gas-X) 80 mg PRN Q8HRS PRN PO GAS / BLOATING; Start 12/29/18 at 01 :00 Trazodone HCl (Desyrel) 100 mg QHS PO ; Start 12/29/18 at 21:00; Stop 12/29/18 at 21:00; Status DC Amlodipine Besylate (Norvasc) 10 mg DAILY PO Last administered on 01/10/19 07: 35; Start 12/29/18 at 09:00 Risperidone (RisperDAL) 1 mg DAILY PO Last administered on 01/08/19 08:13; Start 12/29/18 at 09:00; Stop 01/08/19 at 19:22; Status DC Vitamin D (Vitamin D3) 2,000 unit DAILY PO Last administered on 01/10/19 07:32 ; Start 12/29/18 at 09:00 Trazodone HCl (Desyrel) 100 mg QHS PO Last administered on 01/10/19 19:41; Start 12/29/18 at 03:00 Hydrochlorothiazide (Hydrodiuril) 25 mg DAILY PO Last administered on 07:33; Start 12/30/18 at 09:00 Carbamazepine (TEGretol) 200 mg BID PO Last administered on 01/07/19 08:42; Start 12/30/18 at 09:00; Stop 01/07/19 at 17:15; Status DC Carbamazepine (TEGretol) 100 mg 1X ONCE PO Last administered on 12/29/18 20: 56; Start 12/29/18 at 20:45; Stop 12/29/18 at 20:49; Status DC Vitamin D (Vitamin D3) 50,000 unit WEEKLY PO Last administered on 01/07/19 08: 44; Start 12/31/18 at 17:00 Trazodone HCl (Desyrel) 12.5 mg 0900,1700 PO Last administered on 01/10/19 17: 00; Start 01/01/19 at 17:00 Neomycin/ Polymyxin/ Bacitracin (Triple Antibiotic Ointment) 1 pkt PRN BID PRN TP CUTS/SKIN ABRASIONS Last administered on 01/07/19 21:49; Start 01/01/19 at 21: 15 Eye Irrigation Solution (Eye-Stream) 30 ml DAILY OU ; Start 01/02/19 at 09:00; Status Cancel Artificial Tears (Refresh Classic) 1 drop DAILY OU ; Start 01/02/19 at 09:00; Stop 01/02/19 at 09:01; Status DC Cetirizine HCl (ZyrTEC) 10 mg DAILY PO Last administered on 01/09/19 09:25; Start 01/05/19 at 09:00; Stop 01/10/19 at 07:38; Status DC Fluticasone Propionate (Flonase) 2 spray DAILY NS Last administered on 07:35; Start 01/05/19 at 09:00 Carbamazepine (TEGretol) 200 mg DAILY PO Last administered on 01/10/19 07:34; Start 01/08/19 at 09:00 Temazepam (Restoril) 15 mg QHS PO Last administered on 01/10/19 19:44; Start 01/07/19 at 21:00 Carbamazepine (TEGretol) 300 mg QHS PO Last administered on 01/10/19 19:42; Start 01/07/19 at 21:00 Risperidone (RisperDAL) 1.5 mg DAILY PO Last administered on 01/10/19 07:32; Start 01/09/19 at 09:00 Cetirizine HCl (ZyrTEC) 10 mg QHS PO Last administered on 01/10/19 19:44; Start 01/10/19 at 21:00 Active Scripts Active Reported Hydrochlorothiazide Tablet (Hydrochlorothiazide) 25 Mg Tablet 25 Mg PO BID Trazodone Hcl 100 Mg Tablet 100 Mg PO HS Simethicone 100 Ml Liquid 125 Ml MC PRN Q8HRS PRN Systane Ultra 0.4-0.3% Eye Drp (Propylene Glycol/Peg 400) 10 Ml Drops 1 Drop EACHEYE PRN TID PRN Voltaren (Diclofenac Sodium) 100 Gm Gel..gram. 100 Gm TP HS Acyclovir 400 Mg Tablet 400 Mg PO PRN TID PRN Risperdal (Risperidone) 2 Mg Tablet 2 Mg PO QHS Namenda (Memantine Hcl) 10 Mg Tablet 5 Mg PO HS Zyprexa Zydis (Olanzapine) 5 Mg Tab.rapdis 5 Mg PO BID Risperidone 1 Mg Tablet 1 Mg PO DAILY Pantoprazole Sodium 40 Mg Tablet.dr 1 Tab PO DAILY Namenda (Memantine Hcl) 10 Mg Tablet 1 Tab PO DAILY Lisinopril 20 Mg Tablet 1 Tab PO BID Aricept (Donepezil Hcl) 10 Mg Tablet 1 Tab PO QHS Tegretol (Carbamazepine) 200 Mg Tablet 0.5 Tab PO BID Atorvastatin Calcium 10 Mg Tablet 1 Tab PO DAILY Aspirin 325 Mg Tablet 1 Tab PO DAILY Amlodipine Besylate 5 Mg Tablet 10 Mg PO DAILY I have reviewed the current psychotropics carefully including drug interactions. Risk benefit ratio favors no change other than as noted in my dictated progress note. Diagnosis: Problems: (1) Anxiety disorder (2) Bipolar affective, mixed, sev w/ psych (3) Impulse control disorder SOLO ALFARO MD Jan 10, 2019 22:36
[2019-01-11 06:02] VITALS: BP 113/76
[2019-01-11] MEDS: ATORVASTATIN CALCIUM 10 MG TABLET. PO SCH (07:36)
[2019-01-11] MEDS: PANTOPRAZOLE 40 MG TABLET. PO SCH (07:36)
[2019-01-11] MEDS: traZODone 50 MG TABLET. PO SCH ×2 (07:37→17:00)
[2019-01-11] MEDS: LISINOPRIL 20 MG TABLET PO SCH (07:37)
[2019-01-11] MEDS: ASPIRIN 325 MG TABLET PO SCH (07:38)
[2019-01-11] MEDS: carBAMazepine 200 MG TABLET PO SCH ×2 (07:38→19:45)
[2019-01-11] MEDS: CHOLECALCIFEROL (VITAMIN D3) 1,000 UNIT TABLET PO SCH (07:38)
[2019-01-11] MEDS: amLODIPine BESYLATE 5 MG TABLET PO SCH (07:38)
[2019-01-11] MEDS: hydroCHLOROthiazide 25 MG TABLET PO SCH (07:38)
[2019-01-11] MEDS: risperiDONE 1 MG TABLET. PO SCH (07:38)
[2019-01-11] MEDS: MEMANTINE 10 MG TABLET. PO SCH (07:39)
[2019-01-11] MEDS: FLUTICASONE 50MCG/NASAL SPRAY 16GM BOTTLE. NS SCH (07:40)
[2019-01-11 15:53] VITALS: BP 125/77
[2019-01-11] MEDS: traZODone 100 MG TABLET. PO SCH (19:44)
[2019-01-11] MEDS: MEMANTINE 5 MG TABLET. PO SCH (19:44)
[2019-01-11] MEDS: CETIRIZINE HCL 10 MG TABLET PO SCH (19:45)
[2019-01-11] MEDS: risperiDONE 2 MG TABLET. PO SCH (19:45)
[2019-01-11] MEDS: TEMAZEPAM 15 MG CAPSULE PO SCH (19:46)
[2019-01-11] MEDS: DICLOFENAC SODIUM 1% TOPICAL GEL 100GM TUBE. TP SCH (19:46)
[2019-01-11] MEDS: DONEPEZIL HCL 10 MG TABLET PO SCH (20:23)
--- NOTE | 2019-01-11 22:30 | PDOC ---
Exam Note: [place] Note: Please also refer to the separate dictated note~for this date of service dictated separately.~Patient seen individually. Discussed the patient with Nursing staff reviewed the chart.~Reviewed interim history and current functioning. Reviewed vital signs,~Labs/ Radiology~and current medications noted below. Continue current treatment with the changes noted in the dictated addendum note Assessment: Vital Signs: Vital Signs Date Time Temp Pulse Resp B/P (MAP) Pulse Ox O2 Delivery O2 Flow Rate FiO2 01/11/19 15:53 97.2 100 20 125/77 (93) 98 01/11/19 06:02 Nasal Cannula 2.0 I&O Intake and Output 01/11/19 07:00 Intake Total 1080 ml Balance 1080 ml Intake Oral 1080 ml Current Medications: Meds: Current Medications Aspirin (Oksana Aspirin) 325 mg DAILY PO Last administered on 01/11/19at 07:38; Start 12/29/18 at 09:00 Carbamazepine (TEGretol) 100 mg BID PO Last administered on 12/29/18 19:18; Start 12/28/18 at 21:30; Stop 12/29/18 at 20:46; Status DC Lisinopril (Prinivil) 20 mg DAILY PO Last administered on 01/11/19 07:37; Start 12/29/18 at 09:00 Amlodipine Besylate (Norvasc) 5 mg DAILY PO ; Start 12/29/18 at 09:00; Stop at 09:00; Status DC Atorvastatin Calcium (Lipitor) 10 mg DAILY PO Last administered on 01/11/19at 07 :36; Start 12/29/18 at 09:00 Donepezil HCl (Aricept) 10 mg HS PO Last administered on 01/11/19at 20:23; Start 12/28/18 at 21:30 Memantine (Namenda) 10 mg DAILY PO Last administered on 01/11/19 07:39; Start 12/29/18 at 09:00 Pantoprazole Sodium (Protonix) 40 mg DAILY PO Last administered on 01/11/19 07 :36; Start 12/29/18 at 09:00 Risperidone (RisperDAL) 1 mg BID PO Last administered on 12/28/18at 21:21; Start 12/28/18 at 21:30; Stop 12/29/18 at 00:37; Status DC Sennosides (Senna) 17.2 mg BID PO Last administered on 12/28/18 21:21; Start 12/28/18 at 21:30; Stop 12/29/18 at 00:37; Status DC Acetaminophen (Tylenol) 650 mg PRN Q6HRS PRN PO PAIN / TEMP Last administered on 01/10/19 10:25; Start 12/28/18 at 23:00 Multi-Ingredient Ointment (Analgesic [place]) 1 shekhar PRN QID PRN TP MUSCLE PAIN Last administered on 01/10/19 20:12; Start 12/28/18 at 23:00 Al Hydroxide/Mg Hydroxide (Mylanta Plus Xs) 15 ml PRN AFTMEALHC PRN PO DYSPEPSIA; Start 12/28/18 at 23:00 Magnesium Hydroxide (Milk Of Magnesia) 2,400 mg PRN QHS PRN PO CONSTIPATION; Start 12/28/18 at 23:00 Diclofenac Sodium (Voltaren) 1 shekhar HS TP Last administered on 01/11/19 19:46; Start 12/29/18 at 21:00 Olanzapine (ZyPREXA ZYDIS) 5 mg PRN BID PRN PO MANIC DEPRESSION Last administered on 01/10/19 10:25; Start 12/29/18 at 09:00 Acyclovir (Zovirax) 400 mg PRN TID PRN PO COLD SORES; Start 12/29/18 at 09:00 Hydrochlorothiazide (Hydrodiuril) 25 mg BID PO Last administered on 12/29/18 08:27; Start 12/29/18 at 09:00; Stop 12/29/18 at 18:13; Status DC Memantine (Namenda) 5 mg QHS PO Last administered on 01/11/19 19:44; Start at 21:00 Artificial Tears (Artificial Tears) 1 drop PRN TID PRN OU DRY EYE; Start at 01:00 Risperidone (RisperDAL) 2 mg QHS PO Last administered on 01/11/19 19:45; Start 12/29/18 at 21:00 Simethicone (Gas-X) 80 mg PRN Q8HRS PRN PO GAS / BLOATING; Start 12/29/18 at 01 :00 Trazodone HCl (Desyrel) 100 mg QHS PO ; Start 12/29/18 at 21:00; Stop 12/29/18 at 21:00; Status DC Amlodipine Besylate (Norvasc) 10 mg DAILY PO Last administered on 01/11/19 07: 38; Start 12/29/18 at 09:00 Risperidone (RisperDAL) 1 mg DAILY PO Last administered on 01/08/19 08:13; Start 12/29/18 at 09:00; Stop 01/08/19 at 19:22; Status DC Vitamin D (Vitamin D3) 2,000 unit DAILY PO Last administered on 01/11/19 07:38 ; Start 12/29/18 at 09:00 Trazodone HCl (Desyrel) 100 mg QHS PO Last administered on 01/11/19 19:44; Start 12/29/18 at 03:00 Hydrochlorothiazide (Hydrodiuril) 25 mg DAILY PO Last administered on 07:38; Start 12/30/18 at 09:00 Carbamazepine (TEGretol) 200 mg BID PO Last administered on 01/07/19 08:42; Start 12/30/18 at 09:00; Stop 01/07/19 at 17:15; Status DC Carbamazepine (TEGretol) 100 mg 1X ONCE PO Last administered on 12/29/18 20: 56; Start 12/29/18 at 20:45; Stop 12/29/18 at 20:49; Status DC Vitamin D (Vitamin D3) 50,000 unit WEEKLY PO Last administered on 01/07/19 08: 44; Start 12/31/18 at 17:00 Trazodone HCl (Desyrel) 12.5 mg 0900,1700 PO Last administered on 01/11/19 17: 00; Start 01/01/19 at 17:00 Neomycin/ Polymyxin/ Bacitracin (Triple Antibiotic Ointment) 1 pkt PRN BID PRN TP CUTS/SKIN ABRASIONS Last administered on 01/07/19 21:49; Start 01/01/19 at 21: 15 Eye Irrigation Solution (Eye-Stream) 30 ml DAILY OU ; Start 01/02/19 at 09:00; Status Cancel Artificial Tears (Refresh Classic) 1 drop DAILY OU ; Start 01/02/19 at 09:00; Stop 01/02/19 at 09:01; Status DC Cetirizine HCl (ZyrTEC) 10 mg DAILY PO Last administered on 01/09/19 09:25; Start 01/05/19 at 09:00; Stop 01/10/19 at 07:38; Status DC Fluticasone Propionate (Flonase) 2 spray DAILY NS Last administered on 07:40; Start 01/05/19 at 09:00 Carbamazepine (TEGretol) 200 mg DAILY PO Last administered on 01/11/19 07:38; Start 01/08/19 at 09:00 Temazepam (Restoril) 15 mg QHS PO Last administered on 01/11/19 19:46; Start 01/07/19 at 21:00 Carbamazepine (TEGretol) 300 mg QHS PO Last administered on 01/11/19 19:45; Start 01/07/19 at 21:00 Risperidone (RisperDAL) 1.5 mg DAILY PO Last administered on 01/11/19 07:38; Start 01/09/19 at 09:00 Cetirizine HCl (ZyrTEC) 10 mg QHS PO Last administered on 01/11/19 19:45; Start 01/10/19 at 21:00 Active Scripts Active Reported Hydrochlorothiazide Tablet (Hydrochlorothiazide) 25 Mg Tablet 25 Mg PO BID Trazodone Hcl 100 Mg Tablet 100 Mg PO HS Simethicone 100 Ml Liquid 125 Ml MC PRN Q8HRS PRN Systane Ultra 0.4-0.3% Eye Drp (Propylene Glycol/Peg 400) 10 Ml Drops 1 Drop EACHEYE PRN TID PRN Voltaren (Diclofenac Sodium) 100 Gm Gel..gram. 100 Gm TP HS Acyclovir 400 Mg Tablet 400 Mg PO PRN TID PRN Risperdal (Risperidone) 2 Mg Tablet 2 Mg PO QHS Namenda (Memantine Hcl) 10 Mg Tablet 5 Mg PO HS Zyprexa Zydis (Olanzapine) 5 Mg Tab.rapdis 5 Mg PO BID Risperidone 1 Mg Tablet 1 Mg PO DAILY Pantoprazole Sodium 40 Mg Tablet.dr 1 Tab PO DAILY Namenda (Memantine Hcl) 10 Mg Tablet 1 Tab PO DAILY Lisinopril 20 Mg Tablet 1 Tab PO BID Aricept (Donepezil Hcl) 10 Mg Tablet 1 Tab PO QHS Tegretol (Carbamazepine) 200 Mg Tablet 0.5 Tab PO BID Atorvastatin Calcium 10 Mg Tablet 1 Tab PO DAILY Aspirin 325 Mg Tablet 1 Tab PO DAILY Amlodipine Besylate 5 Mg Tablet 10 Mg PO DAILY I have reviewed the current psychotropics carefully including drug interactions. Risk benefit ratio favors no change other than as noted in my dictated progress note. Diagnosis: Problems: (1) Anxiety disorder (2) Bipolar affective, mixed, sev w/ psych (3) Impulse control disorder SOLO ALFARO MD Jan 11, 2019 22:30
[2019-01-12 06:07] VITALS: BP 132/82
[2019-01-12] MEDS: FLUTICASONE 50MCG/NASAL SPRAY 16GM BOTTLE. NS SCH (07:47)
[2019-01-12] MEDS: CHOLECALCIFEROL (VITAMIN D3) 1,000 UNIT TABLET PO SCH (07:48)
[2019-01-12] MEDS: hydroCHLOROthiazide 25 MG TABLET PO SCH (07:48)
[2019-01-12] MEDS: PANTOPRAZOLE 40 MG TABLET. PO SCH (07:48)
[2019-01-12] MEDS: ASPIRIN 325 MG TABLET PO SCH (07:48)
[2019-01-12] MEDS: LISINOPRIL 20 MG TABLET PO SCH (07:49)
[2019-01-12] MEDS: amLODIPine BESYLATE 5 MG TABLET PO SCH (07:49)
[2019-01-12] MEDS: traZODone 50 MG TABLET. PO SCH ×2 (07:49→18:00)
[2019-01-12] MEDS: MEMANTINE 10 MG TABLET. PO SCH (07:49)
[2019-01-12] MEDS: ATORVASTATIN CALCIUM 10 MG TABLET. PO SCH (07:49)
[2019-01-12] MEDS: carBAMazepine 200 MG TABLET PO SCH ×2 (07:49→19:37)
[2019-01-12] MEDS: risperiDONE 1 MG TABLET. PO SCH (07:50)
--- NOTE | 2019-01-12 15:23 | PN ---
DATE: 01/09/2019 This late entry for 01/09/2019 covers elements not covered in my initial note. SUBJECTIVE: I met with the patient in the evening. The patient slept 4-1/4 hours previous night. She has been intrusive, somewhat hypomanic. We reviewed her past response to mood stabilizers and she states she became stiff on lithium. Details are unclear. REVIEW OF SYSTEMS: No CV, , pulmonary, eye, ENT system symptoms on review. MENTAL STATUS EXAM: Oriented to herself and situation. Speech is coherent, somewhat rapid. Abstraction fair, computation impaired, language function intact, attention span short. Mood and affect remain somewhat grandiose, labile. LABORATORY DATA: Reviewed. IMPRESSION: Bipolar 1 disorder, manic with psychotic features; anxiety disorder, unspecified; impulse control disorder, unspecified. PLAN: Continue current psychotropics. We have increased the Risperdal. We may need to increase it further given her ongoing manic symptoms despite the rest of her psychotropics. MAN Alli ALFARO MD DR: BO/tavo JOB#: [id number] / [id number]
[2019-01-12 15:41] VITALS: BP 128/84
--- NOTE | 2019-01-12 16:15 | PN ---
DATE: 01/10/2019 PSYCHIATRIC PROGRESS NOTE This late entry 01/10/2019, covers elements not covered in my initial note. SUBJECTIVE: I met with the patient in the evening and staffed at treatment team meeting with the entire team earlier in the day. She did better previous night, still intrusive, somatic, somewhat grandiose, slept 5-3/4 hours. REVIEW OF SYSTEMS: No CV, , pulmonary, eye system symptoms on review. MENTAL STATUS EXAM: Oriented reasonably. Speech coherent, somewhat pressured. Abstraction fair, computation impaired, language function intact. Mood and affect still somewhat grandiose. LABORATORY DATA: Reviewed. IMPRESSION: Bipolar 1 disorder, manic with psychotic features, in partial remission. Rest unchanged. PLAN: Continue current psychotropics including Tegretol, which was increased and she is allergic to most other mood stabilizers and we have been increasing the Risperdal gradually, may need to do this further depending on how she tolerates it. SOLO ALFARO MD DR: BO/tavo JOB#: [id number] / [id number]
[2019-01-12] MEDS: TEMAZEPAM 15 MG CAPSULE PO SCH (19:36)
[2019-01-12] MEDS: risperiDONE 2 MG TABLET. PO SCH (19:37)
[2019-01-12] MEDS: MEMANTINE 5 MG TABLET. PO SCH (19:37)
[2019-01-12] MEDS: CETIRIZINE HCL 10 MG TABLET PO SCH (19:37)
[2019-01-12] MEDS: traZODone 100 MG TABLET. PO SCH (19:37)
[2019-01-12] MEDS: DONEPEZIL HCL 10 MG TABLET PO SCH (19:37)
[2019-01-12] MEDS: DICLOFENAC SODIUM 1% TOPICAL GEL 100GM TUBE. TP SCH (19:38)
--- NOTE | 2019-01-12 20:32 | PN ---
DATE: 01/12/2019 SUBJECTIVE: The patient was seen today, met with the staff, chart reviewed and also covering for Dr. Torres. Staff reports constant demands, still manic behaviors, wanting to leave the hospital. The patient also gets paranoid. The patient also gets mixed forgetting things and keep repeating herself. The patient is also exhibiting emotional lability. OBSERVATION: VITAL SIGNS: Temperature 97.6, blood pressure 153/82, pulse 76, respirations 20, O2 sat 95%. Slept about 6 hours last night. Her appetite is normal. MEDICATIONS: The patient's medications reviewed. Currently on Risperdal 1.5 mg daily, Tegretol 200 mg daily and 300 mg at night, temazepam 15 mg at night, trazodone 12.5 mg b.i.d., Risperdal 2 mg at night, Namenda 5 mg at night, olanzapine 5 mg b.i.d. p.r.n., Namenda 10 mg daily, trazodone 100 mg at night, also Aricept 10 mg at night. The patient is not having any side effects. The patient's lab reviewed, no change from the previous levels. Hemoglobin level has been 5.8, creatinine level was 25 and the last one was 23. The patient's lipid profile were within normal range. MENTAL STATUS EXAMINATION: Alert, oriented and able to make eye contact. Her behavior was appropriate to some extent, able to hold a conversation, but demanding increased agitation at times, and did not show any much insight to her problems. Her speech was clear, spontaneous with increased rate and rhythm. Affect and mood showed she is still somewhat delusional, paranoid, does not believe that she has any problems and daughter is the DPOA. The patient apparently has been in treatments in the past including ____. ASSESSMENT: Bipolar disorder type 1, mixed, with psychotic features; anxiety disorder, unspecified; impulse control disorder, unspecified. PLAN: To continue with the treatment. The patient will be encouraged to involve in activities. We will consider adjusting her meds accordingly. Length of stay is 5-7 days. ROE HOFFMANN MD DR: KEITH/tavo JOB#: [id number] / [id number]
--- NOTE | 2019-01-12 21:20 | PN ---
DATE: 01/11/2019 PSYCHIATRIC PROGRESS NOTE This late entry 01/11/2019 covers elements not covered in my initial note. SUBJECTIVE: I met with the patient in the morning. The patient slept 6 hours previous night. She remains somewhat hypomanic, hyperverbal at times. Previous evening, she was upset, anxious, restless. REVIEW OF SYSTEMS: No CV, , pulmonary, eye, ENT system symptoms on review. Reliability fair. MENTAL STATUS EXAM: Oriented reasonably. Speech is coherent, rapid at times. Abstraction fair, computation impaired, language function intact, attention span short. Mood and affect remain somewhat labile, anxious. LABORATORY DATA: Reviewed. IMPRESSION: Unchanged from initial note. PLAN: No change from initial note. MAN Alli ALFARO MD DR: BO/tavo JOB#: [id number] / [id number]
[2019-01-13 05:36] VITALS: BP 141/84
[2019-01-13] MEDS: ASPIRIN 325 MG TABLET PO SCH (08:00)
[2019-01-13] MEDS: FLUTICASONE 50MCG/NASAL SPRAY 16GM BOTTLE. NS SCH (08:00)
[2019-01-13] MEDS: MEMANTINE 10 MG TABLET. PO SCH (08:01)
[2019-01-13] MEDS: amLODIPine BESYLATE 5 MG TABLET PO SCH (08:01)
[2019-01-13] MEDS: ATORVASTATIN CALCIUM 10 MG TABLET. PO SCH (08:01)
[2019-01-13] MEDS: CHOLECALCIFEROL (VITAMIN D3) 1,000 UNIT TABLET PO SCH (08:01)
[2019-01-13] MEDS: risperiDONE 1 MG TABLET. PO SCH (08:01)
[2019-01-13] MEDS: traZODone 50 MG TABLET. PO SCH ×2 (08:02→17:37)
[2019-01-13] MEDS: LISINOPRIL 20 MG TABLET PO SCH (08:02)
[2019-01-13] MEDS: carBAMazepine 200 MG TABLET PO SCH ×2 (08:02→19:32)
[2019-01-13] MEDS: PANTOPRAZOLE 40 MG TABLET. PO SCH (08:02)
[2019-01-13] MEDS: hydroCHLOROthiazide 25 MG TABLET PO SCH (08:02)
[2019-01-13 16:03] VITALS: BP 131/82
--- NOTE | 2019-01-13 18:09 | PN ---
DATE: 01/13/2019 SUBJECTIVE: The patient was seen today, met with the staff, chart reviewed and also covering for Dr. Torres. The patient's behavior remains the same. She is very demanding hypomanic, loud, and argumentative and also refusing to take any p.r.n. medications. The patient is not presenting with any major medical issues at this time. OBJECTIVE: VITAL SIGNS: Temperature 97.5, blood pressure 141/84, pulse 95, respirations 20, O2 sat 92%. Slept about 6 hours last night. Her appetite is normal. The patient is lacking insight to her problems. The patient has a list of medications that she does not want to take, claims that she had problems including Depakote and lithium. The patient's current medication is apparently not controlling her manic behaviors. The patient was on Risperdal 1.5 mg daily that was increased to 3 mg daily. She was also on Risperdal 2 mg at night and that was increased to 3 mg at night and the patient will continue on her Tegretol 200 mg daily and 300 at night, and the level is in therapeutic range. The patient is also on temazepam 15 mg at night for sleep, Namenda 5 mg at night, olanzapine 5 mg b.i.d. p.r.n., Namenda 10 mg daily, trazodone 100 mg at night, also on Aricept 10 mg at night. The patient denies of any physical problems. The patient interacts with the staff fairly well and also with other residents, but she tends to get fixated with certain things, gets very anxious, exhibiting poor impulse control, low frustration tolerance and also lacking insight to her problems especially or manic behaviors. The patient's lab reviewed. ASSESSMENT: Bipolar disorder type 1, mixed, with psychotic features; anxiety disorder, unspecified; impulse control disorder, unspecified; cognitive disorder, mild. PLAN: To continue with the current treatment and encourage to participate in all the activities and also to follow the rules on the unit. LENGTH OF STAY: 5-10 days. ROE HOFFMNAN MD DR: KEITH/tavo JOB#: [id number] / [id number]
[2019-01-13] MEDS: TEMAZEPAM 15 MG CAPSULE PO SCH (19:31)
[2019-01-13] MEDS: risperiDONE 2 MG TABLET. PO SCH (19:31)
[2019-01-13] MEDS: CETIRIZINE HCL 10 MG TABLET PO SCH (19:31)
[2019-01-13] MEDS: MEMANTINE 5 MG TABLET. PO SCH (19:32)
[2019-01-13] MEDS: DONEPEZIL HCL 10 MG TABLET PO SCH (19:32)
[2019-01-13] MEDS: traZODone 100 MG TABLET. PO SCH (19:32)
[2019-01-13] MEDS: DICLOFENAC SODIUM 1% TOPICAL GEL 100GM TUBE. TP SCH (19:34)
[2019-01-14] MEDS: METHYL SALICYLATE/MENTHOL TOPICAL OINTMENT 29GM TUBE. TP PRN (05:02)
[2019-01-14 05:56] VITALS: BP 137/93
[2019-01-14] MEDS: traZODone 50 MG TABLET. PO SCH ×2 (08:20→17:17)
[2019-01-14] MEDS: carBAMazepine 200 MG TABLET PO SCH ×2 (08:21→20:02)
[2019-01-14] MEDS: hydroCHLOROthiazide 25 MG TABLET PO SCH (08:21)
[2019-01-14] MEDS: CHOLECALCIFEROL (VITAMIN D3) 1,000 UNIT TABLET PO SCH (08:21)
[2019-01-14] MEDS: ASPIRIN 325 MG TABLET PO SCH (08:23)
[2019-01-14] MEDS: amLODIPine BESYLATE 5 MG TABLET PO SCH (08:23)
[2019-01-14] MEDS: MEMANTINE 10 MG TABLET. PO SCH (08:23)
[2019-01-14] MEDS: ATORVASTATIN CALCIUM 10 MG TABLET. PO SCH (08:23)
[2019-01-14] MEDS: LISINOPRIL 20 MG TABLET PO SCH (08:23)
[2019-01-14] MEDS: PANTOPRAZOLE 40 MG TABLET. PO SCH (08:23)
[2019-01-14] MEDS: risperiDONE 2 MG TABLET. PO SCH ×2 (08:23→20:02)
[2019-01-14] MEDS: FLUTICASONE 50MCG/NASAL SPRAY 16GM BOTTLE. NS SCH (08:25)
[2019-01-14] MEDS: CHOLECALCIFEROL (VITAMIN D3) 50,000 UNIT CAPSULE PO SCH (08:25)
[2019-01-14 16:22] VITALS: BP 117/72
--- NOTE | 2019-01-14 19:29 | PN ---
DATE: 01/14/2019 SUBJECTIVE: The patient was seen today, met with the staff, chart reviewed and also covering for Dr. Torres. The patient's behavior fluctuates, still manic; problems impulse control, demanding at times, and also having racing thoughts. The patient has shown some improvement. She is able to listen, able to hold a conversation. The patient also gets distracted easily and thinking is not goal directed at times. OBSERVATION: VITAL SIGNS: Temperature 97.7, blood pressure 137/93, pulse 82, respirations 20, O2 sat 97%. Slept about 5 hours last night. The patient's lab reviewed. MEDICATIONS: Reviewed, currently not having any side effects. The patient is currently on Risperdal 3 mg b.i.d. p.o., Tegretol 200 mg daily and 300 mg at night, temazepam 15 mg at night, trazodone 12.5 mg b.i.d., Namenda 5 mg at night, olanzapine 5 mg b.i.d. p.o. p.r.n., Namenda 10 mg daily, trazodone 100 mg at night, and Aricept 10 mg at night. The patient's lab reviewed. ASSESSMENT: 1. Bipolar disorder type 1, mixed, with psychotic features. 2. Anxiety disorder, unspecified. 3. Impulse control disorder, unspecified. 4. Cognitive disorder, mild. PLAN: To continue with the treatment. LENGTH OF STAY: 5 days. ROE HOFFMANN MD DR: KEITH/tavo JOB#: [id number] / [id number]
[2019-01-14] MEDS: traZODone 100 MG TABLET. PO SCH (20:01)
[2019-01-14] MEDS: DONEPEZIL HCL 10 MG TABLET PO SCH (20:01)
[2019-01-14] MEDS: MEMANTINE 5 MG TABLET. PO SCH (20:01)
[2019-01-14] MEDS: CETIRIZINE HCL 10 MG TABLET PO SCH (20:01)
[2019-01-14] MEDS: TEMAZEPAM 15 MG CAPSULE PO SCH (20:01)
[2019-01-14] MEDS: DICLOFENAC SODIUM 1% TOPICAL GEL 100GM TUBE. TP SCH (21:00)
[2019-01-15 05:32] VITALS: BP 138/81
[2019-01-15] MEDS: ASPIRIN 325 MG TABLET PO SCH (05:41)
[2019-01-15] MEDS: carBAMazepine 200 MG TABLET PO SCH ×2 (05:42→19:44)
[2019-01-15] MEDS: hydroCHLOROthiazide 25 MG TABLET PO SCH (05:42)
[2019-01-15] MEDS: ATORVASTATIN CALCIUM 10 MG TABLET. PO SCH (05:42)
[2019-01-15] MEDS: LISINOPRIL 20 MG TABLET PO SCH (05:42)
[2019-01-15] MEDS: CHOLECALCIFEROL (VITAMIN D3) 1,000 UNIT TABLET PO SCH (05:42)
[2019-01-15] MEDS: PANTOPRAZOLE 40 MG TABLET. PO SCH (05:42)
[2019-01-15] MEDS: traZODone 50 MG TABLET. PO SCH ×2 (05:43→16:45)
[2019-01-15] MEDS: MEMANTINE 10 MG TABLET. PO SCH (05:43)
[2019-01-15] MEDS: risperiDONE 2 MG TABLET. PO SCH ×2 (05:43→19:46)
[2019-01-15] MEDS: amLODIPine BESYLATE 5 MG TABLET PO SCH (05:44)
[2019-01-15] MEDS: FLUTICASONE 50MCG/NASAL SPRAY 16GM BOTTLE. NS SCH (06:01)
[2019-01-15 15:47] VITALS: BP 133/83
[2019-01-15] MEDS: CETIRIZINE HCL 10 MG TABLET PO SCH (19:46)
[2019-01-15] MEDS: TEMAZEPAM 15 MG CAPSULE PO SCH (19:46)
[2019-01-15] MEDS: MEMANTINE 5 MG TABLET. PO SCH (19:46)
[2019-01-15] MEDS: traZODone 100 MG TABLET. PO SCH (19:47)
[2019-01-15] MEDS: DONEPEZIL HCL 10 MG TABLET PO SCH (19:47)
[2019-01-15] MEDS: lamoTRIgine 25 MG TABLET. PO SCH (19:51)
[2019-01-15] MEDS: DICLOFENAC SODIUM 1% TOPICAL GEL 100GM TUBE. TP SCH (19:56)
--- NOTE | 2019-01-15 23:27 | PN ---
DATE: 01/15/2019 SUBJECTIVE: The patient was seen today, met with the staff, chart reviewed. The patient's behavior improved slightly, still demanding at times, hyperverbal, problems with boundaries, gets argumentative with the staff and residents. The patient still has some flight of ideas. OBSERVATION: VITAL SIGNS: Temperature 97.4, blood pressure 138/81, pulse 88, respirations 20, O2 sat 98%. Slept about 5 hours last night. LABORATORY DATA: The patient's lab reviewed. The patient is not having any physical complaints. The patient has lot of anxiety about taking medications. ALLERGIES: The patient apparently claiming that she is ALLERGIC TO DEPAKOTE. According to the family, it is not. MEDICATIONS: The patient's current medications include Risperdal 3 mg b.i.d. p.o., Tegretol 200 mg daily and 300 mg at night, temazepam 15 mg at night, trazodone 12.5 mg b.i.d., Namenda 5 mg at night, olanzapine 5 mg b.i.d. p.o. p.r.n., Namenda 10 mg daily, Aricept 10 mg at night and trazodone 100 mg at night. The patient is not having any side effects. ASSESSMENT: 1. Bipolar disorder type 1, mixed, with psychotic features. 2. Anxiety disorder, unspecified. 3. Impulse control disorder, unspecified. 4. Cognitive disorder, mild. PLAN: To continue with the treatment and also the patient is planned for discharge tomorrow for the court hearing. Apparently, family is initiating a guardianship. At this time, it is not clear whether the patient will be back to the unit or will be discharged home. ROE HOFFMANN MD DR: KEITH/tavo JOB#: [id number] / [id number]
[2019-01-16] MEDS ORDERED: ACET325T9 PO (03:52)
[2019-01-16] MEDS ORDERED: CETI10TA22 PO (03:54)
[2019-01-16] MEDS ORDERED: CHOL10003 PO (03:55)
[2019-01-16] MEDS ORDERED: CHOL500021 PO (03:56)
[2019-01-16] MEDS ORDERED: FLUT9.9S NS (03:58)
[2019-01-16] MEDS ORDERED: MAG355OR98 PO (04:00)
[2019-01-16] MEDS ORDERED: MAGN400O7 PO (04:01)
[2019-01-16] MEDS ORDERED: METH29OI TP (04:02)
[2019-01-16] MEDS ORDERED: NEOM1PAC TP (04:03)
[2019-01-16] MEDS ORDERED: TEMA15CA PO (04:04)
[2019-01-16] MEDS ORDERED: CARB200T PO (04:05)
[2019-01-16] MEDS ORDERED: LAMO25TA5 PO (04:06)
[2019-01-16] MEDS ORDERED: TRAZ-120 PO (04:08)
[2019-01-16 05:39] VITALS: BP 128/73
[2019-01-16 05:41] VITALS: BP 128/73
[2019-01-16] MEDS: amLODIPine BESYLATE 5 MG TABLET PO SCH (09:38)
[2019-01-16] MEDS: carBAMazepine 200 MG TABLET PO SCH ×2 (09:38→19:56)
[2019-01-16] MEDS: PANTOPRAZOLE 40 MG TABLET. PO SCH (09:39)
[2019-01-16] MEDS: traZODone 50 MG TABLET. PO SCH ×2 (09:39→17:44)
[2019-01-16] MEDS: ATORVASTATIN CALCIUM 10 MG TABLET. PO SCH (09:39)
[2019-01-16] MEDS: risperiDONE 2 MG TABLET. PO SCH ×2 (09:39→19:55)
[2019-01-16] MEDS: MEMANTINE 10 MG TABLET. PO SCH (09:39)
[2019-01-16] MEDS: CHOLECALCIFEROL (VITAMIN D3) 1,000 UNIT TABLET PO SCH (09:39)
[2019-01-16] MEDS: LISINOPRIL 20 MG TABLET PO SCH (09:40)
[2019-01-16] MEDS: ASPIRIN 325 MG TABLET PO SCH (09:40)
[2019-01-16] MEDS: hydroCHLOROthiazide 25 MG TABLET PO SCH (09:40)
[2019-01-16] MEDS: FLUTICASONE 50MCG/NASAL SPRAY 16GM BOTTLE. NS SCH (09:40)
[2019-01-16] MEDS: DICLOFENAC SODIUM 1% TOPICAL GEL 100GM TUBE. TP SCH (09:52)
[2019-01-16] MEDS: METHYL SALICYLATE/MENTHOL TOPICAL OINTMENT 29GM TUBE. TP PRN (12:53)
[2019-01-16 16:12] VITALS: BP 141/85
[2019-01-16] MEDS: traZODone 100 MG TABLET. PO SCH (19:54)
[2019-01-16] MEDS: MEMANTINE 5 MG TABLET. PO SCH (19:54)
[2019-01-16] MEDS: CETIRIZINE HCL 10 MG TABLET PO SCH (19:57)
[2019-01-16] MEDS: DONEPEZIL HCL 10 MG TABLET PO SCH (19:57)
[2019-01-16] MEDS: lamoTRIgine 25 MG TABLET. PO SCH (19:57)
[2019-01-16] MEDS: TEMAZEPAM 15 MG CAPSULE PO SCH (19:57)
--- NOTE | 2019-01-16 23:29 | PN ---
DATE: 01/16/2019 SUBJECTIVE: The patient was seen today, met with the staff, chart reviewed and also covering for Dr. Torres. The patient much calmer today, but still focusing on her physical complaints and also having side effects to the medication. The patient was started on Lamictal 25 mg yesterday. The patient states she is having diarrhea and also is making her very tired. The patient was advised to stay at least for another couple of days to see she will get used to, if not we could stop that medication, try something different. The patient also wanted to know whether she could go home. The patient apparently has no placement options because of financial reasons. Most likely, she has to go back home with home health care for her. OBSERVATION: VITAL SIGNS: Temperature 98, blood pressure 128/73, pulse 81, respirations 16, O2 sat 95%. Slept about 6 hours last night. The patient's appetite normal. The patient's lab reviewed. The patient continues to have problems, lacking insight, hypomanic behavior, racing thoughts and also tend to be irritable and gunter at times. CURRENT MEDICATIONS: Include Risperdal 3 mg b.i.d. p.o., Tegretol 200 mg daily and 300 mg at night, lorazepam 15 mg at night, trazodone 12.5 mg b.i.d., Namenda 5 mg at night, olanzapine 5 mg b.i.d. p.o. p.r.n., Namenda 10 mg daily, Aricept 10 mg daily. The patient is not having any side effects. The patient also on Lamictal 25 mg at night. ASSESSMENT: 1. Bipolar disorder type 1, mixed, with psychotic features. 2. Anxiety disorder, unspecified. 3. Impulse control disorder, unspecified. 4. Cognitive disorder, mild. PLAN: To continue with the treatment. Continue to monitor the side effects ____ patient. Length of stay 3-5 days. ROE HOFFMANN MD DR: KEITH/tavo JOB#: [id number] / [id number]
[2019-01-17] MEDS ORDERED: ASPIRIN 325 MG TABLET ONE (03:09)
[2019-01-17 05:48] VITALS: BP 123/89
[2019-01-17] MEDS: ASPIRIN 325 MG TABLET PO SCH (07:43)
[2019-01-17] MEDS: amLODIPine BESYLATE 5 MG TABLET PO SCH (07:44)
[2019-01-17] MEDS: PANTOPRAZOLE 40 MG TABLET. PO SCH (07:44)
[2019-01-17] MEDS: LISINOPRIL 20 MG TABLET PO SCH (07:44)
[2019-01-17] MEDS: FLUTICASONE 50MCG/NASAL SPRAY 16GM BOTTLE. NS SCH (07:44)
[2019-01-17] MEDS: hydroCHLOROthiazide 25 MG TABLET PO SCH (07:44)
[2019-01-17] MEDS: MEMANTINE 10 MG TABLET. PO SCH (07:44)
[2019-01-17] MEDS: traZODone 50 MG TABLET. PO SCH ×2 (07:48→17:11)
[2019-01-17] MEDS: ATORVASTATIN CALCIUM 10 MG TABLET. PO SCH (07:48)
[2019-01-17] MEDS: CHOLECALCIFEROL (VITAMIN D3) 1,000 UNIT TABLET PO SCH (07:49)
[2019-01-17] MEDS: carBAMazepine 200 MG TABLET PO SCH ×2 (07:51→19:38)
[2019-01-17] MEDS: risperiDONE 2 MG TABLET. PO SCH ×2 (07:51→19:39)
[2019-01-17 15:53] VITALS: BP 128/76
[2019-01-17 16:12] LABS: HEMATOCRIT 37.4 % (36.0-47.0); HEMOGLOBIN 12.7 g/dL (12.0-15.5); RED BLOOD COUNT 4.12 x10^6/uL (3.50-5.40); RED CELL DISTRIBUTION WIDTH 12.5 % (11.5-14.5); WHITE BLOOD COUNT 5.4 x10^3/uL (4.0-11.0)
[2019-01-17 16:26] LABS: ALBUMIN 3.8 g/dL (3.4-5.0); ALBUMIN/GLOBULIN RATIO 1.2 (1.0-1.7); CALCIUM 9.2 mg/dL (8.5-10.1); CREATININE 0.6 mg/dL (0.6-1.0); GFR 102.7; TOTAL BILIRUBIN 0.1 mg/dL (0.2-1.0); TOTAL PROTEIN 7.1 g/dL (6.4-8.2)
[2019-01-17] MEDS: MEMANTINE 5 MG TABLET. PO SCH (19:38)
[2019-01-17] MEDS: lamoTRIgine 25 MG TABLET. PO SCH (19:38)
[2019-01-17] MEDS: CETIRIZINE HCL 10 MG TABLET PO SCH (19:38)
[2019-01-17] MEDS: traZODone 100 MG TABLET. PO SCH (19:39)
[2019-01-17] MEDS: TEMAZEPAM 15 MG CAPSULE PO SCH (19:41)
[2019-01-17] MEDS: DONEPEZIL HCL 10 MG TABLET PO SCH (21:25)
[2019-01-17] MEDS: DICLOFENAC SODIUM 1% TOPICAL GEL 100GM TUBE. TP SCH (21:26)
--- NOTE | 2019-01-17 22:40 | PN ---
DATE: 01/17/2019 SUBJECTIVE: The patient was seen today, met with the staff, chart reviewed. The patient's behavior remains the same, still demanding, hypomanic, intrusive, also exaggerating her symptoms. The patient finally accepted the Lamictal that she is taking 25 mg daily. Apparently, she did not have any problems today. Staff reports no other major issues at this time. OBSERVATION: VITAL SIGNS: Temperature 98, blood pressure 125/73, pulse 60, respirations 20, and O2 sat 96%. MEDICATIONS: The patient's current medications include Risperdal 3 mg b.i.d., Tegretol 200 mg daily and 300 mg at night, lorazepam 15 mg at night, trazodone 12.5 mg b.i.d., Namenda 5 mg at night, olanzapine 5 mg b.i.d. p.o. p.r.n., Namenda 10 mg daily, and Aricept 10 mg daily. The patient is on Lamictal 25 mg at night. ASSESSMENT: 1. Bipolar disorder type 1, mixed, with psychotic features. 2. Anxiety disorder, unspecified. 3. Impulse control disorder, unspecified. 4. Cognitive disorder, mild. PLAN: Continue with the treatment. Continue to monitor for any side effects. LENGTH OF STAY: Three to five days. ROE HOFFMANN MD DR: KEITH/tavo JOB#: [id number] / [id number]
[2019-01-18] MEDS: ACETAMINOPHEN 325 MG TABLET PO PRN (03:26)
[2019-01-18 05:42] VITALS: BP 118/64
[2019-01-18] MEDS: ACYCLOVIR 200 MG CAPSULE PO PRN ×2 (05:56→07:50)
[2019-01-18] MEDS: MEMANTINE 10 MG TABLET. PO SCH (07:42)
[2019-01-18] MEDS: CHOLECALCIFEROL (VITAMIN D3) 1,000 UNIT TABLET PO SCH (07:42)
[2019-01-18] MEDS: traZODone 50 MG TABLET. PO SCH ×2 (07:42→18:07)
[2019-01-18] MEDS: ASPIRIN 325 MG TABLET PO SCH (07:42)
[2019-01-18] MEDS: hydroCHLOROthiazide 25 MG TABLET PO SCH (07:42)
[2019-01-18] MEDS: ATORVASTATIN CALCIUM 10 MG TABLET. PO SCH (07:42)
[2019-01-18] MEDS: LISINOPRIL 20 MG TABLET PO SCH (07:44)
[2019-01-18] MEDS: risperiDONE 2 MG TABLET. PO SCH ×2 (07:47→19:32)
[2019-01-18] MEDS: PANTOPRAZOLE 40 MG TABLET. PO SCH (07:47)
[2019-01-18] MEDS: carBAMazepine 200 MG TABLET PO SCH ×2 (07:47→19:33)
[2019-01-18] MEDS: FLUTICASONE 50MCG/NASAL SPRAY 16GM BOTTLE. NS SCH (07:50)
[2019-01-18] MEDS: amLODIPine BESYLATE 5 MG TABLET PO SCH (07:51)
[2019-01-18 15:21] VITALS: BP 119/77
--- NOTE | 2019-01-18 18:57 | DS ---
DATE OF DISCHARGE: 01/18/2019 FINAL DIAGNOSES: AXIS I: 1. Bipolar disorder type 1, mixed with psychotic features. 2. Anxiety disorder, unspecified. 3. Impulse control disorder, unspecified. AXIS II: None. AXIS III: Gastroesophageal reflux disease, hyperlipidemia, hypertension, obstructive sleep apnea, was on CPAP machine at home; osteoarthritis, seizure disorder, hyponatremia, history also of herpes simplex. REASON FOR ADMISSION: This 58-year-old female was admitted to [facility] inpatient program at [facility] and referred from [facility] where she was evaluated. The patient at the time of admission was almost in manic phase, speaking nonsense, laughing, labile, dancing, singing, talking to herself intermittently and also actively hallucinating and also uncooperative. The patient apparently failed outpatient treatment. HISTORY OF PRESENT ILLNESS: The patient has a long history of bipolar disorder for the past few weeks. She is gradually getting worse. Apparently, she is living by herself. She is getting extremely manic, grandiose, psychotic and also not taking her medications and also religiously preoccupied and also having auditory hallucinations, inability to sleep. The patient was also very paranoid and suspicious. HOSPITAL COURSE: The patient had a physical exam, routine lab work including CBC, chem profile, urinalysis. The patient's labs were within normal range. The patient's BUN was 25, alkaline phosphatase was 126. The patient's BUN and creatinine ratio was 30, glucose level 102. Hemoglobin A1c was 5.8. The patient's HDL was 82. The patient was involved in the treatment program including individual therapy, group therapy, activity therapy. The patient initially refusing medications and demanding, intrusive, and her behavior was inappropriate and also the patient was noncompliant with the treatment. The patient's Risperdal was increased to 3 mg b.i.d. and continued Tegretol 200 mg daily and 300 mg at night, trazodone 12.5 mg twice a day, Namenda 5 mg at night, olanzapine 5 mg b.i.d. p.o. p.r.n. and the patient was also started on Lamictal 25 mg daily, and temazepam 15 mg at night. The patient did not have any side effects. The patient started participating in all the activities much more calmer, more stable. The patient did not have any major medical issues. AFTERCARE PLAN: The patient at the time of discharge was medically stable. The patient will be returning home and the patient lives by herself. The patient is also able to drive. The patient will be getting home health care and also she will follow up with the psychiatrist and therapist and continue with the medication listed above. The patient at the time of discharge not expressing any suicidal, homicidal thoughts and medically stable. ROE HOFFMANN MD DR: KEITH/tavo JOB#: [id number] / [id number]
[2019-01-18] MEDS: MEMANTINE 5 MG TABLET. PO SCH (19:32)
[2019-01-18] MEDS: traZODone 100 MG TABLET. PO SCH (19:32)
[2019-01-18] MEDS: CETIRIZINE HCL 10 MG TABLET PO SCH (19:32)
[2019-01-18] MEDS: TEMAZEPAM 15 MG CAPSULE PO SCH (19:33)
[2019-01-18] MEDS: lamoTRIgine 25 MG TABLET. PO SCH (19:33)
[2019-01-18] MEDS: DICLOFENAC SODIUM 1% TOPICAL GEL 100GM TUBE. TP SCH (19:34)
[2019-01-18] MEDS: DONEPEZIL HCL 10 MG TABLET PO SCH (19:34)
[2019-01-19] MEDS: ASPIRIN 325 MG TABLET PO SCH (08:50)
[2019-01-19] MEDS: traZODone 50 MG TABLET. PO SCH (08:50)
[2019-01-19] MEDS: FLUTICASONE 50MCG/NASAL SPRAY 16GM BOTTLE. NS SCH (08:50)
[2019-01-19] MEDS: hydroCHLOROthiazide 25 MG TABLET PO SCH (08:50)
[2019-01-19] MEDS: ATORVASTATIN CALCIUM 10 MG TABLET. PO SCH (08:51)
[2019-01-19] MEDS: amLODIPine BESYLATE 5 MG TABLET PO SCH (08:51)
[2019-01-19] MEDS: MEMANTINE 10 MG TABLET. PO SCH (08:51)
[2019-01-19] MEDS: LISINOPRIL 20 MG TABLET PO SCH (08:51)
[2019-01-19] MEDS: risperiDONE 2 MG TABLET. PO SCH (08:57)
[2019-01-19] MEDS: CHOLECALCIFEROL (VITAMIN D3) 1,000 UNIT TABLET PO SCH (08:57)
[2019-01-19] MEDS: carBAMazepine 200 MG TABLET PO SCH (08:57)
[2019-01-19] MEDS: PANTOPRAZOLE 40 MG TABLET. PO SCH (08:57)
[2019-01-19 11:07] VITALS: BP 147/79
== END 2019-01-19 10:45 | disposition home or self-care (01) | DRG 885 ==
LOC: GEROPSY 17:34
PROVIDERS: ADMIT Psychiatry & Neurology Psychiatry; ATTEND Psychiatry & Neurology Psychiatry
DX: F31.64 Bipolar disorder, current episode mixed, severe, with psychotic features (principal); E87.1 Hypo-osmolality and hyponatremia; F41.9 Anxiety disorder, unspecified; F63.9 Impulse disorder, unspecified; K21.9 Gastro-esophageal reflux disease without esophagitis; E78.5 Hyperlipidemia, unspecified; I10 Essential (primary) hypertension; G47.33 Obstructive sleep apnea (adult) (pediatric); M19.90 Unspecified osteoarthritis, unspecified site; G40.909 Epilepsy, unspecified, not intractable, without status epilepticus; F03.90 Unspecified dementia, unspecified severity, without behavioral disturbance, psychotic disturbance, mood disturbance, and anxiety; F09 Unspecified mental disorder due to known physiological condition; Z79.899 Other long term (current) drug therapy; Z80.0 Family history of malignant neoplasm of digestive organs; Z80.3 Family history of malignant neoplasm of breast; Z82.49 Family history of ischemic heart disease and other diseases of the circulatory system; Z90.710 Acquired absence of both cervix and uterus; Z91.19 Patient's noncompliance with other medical treatment and regimen; Z96.641 Presence of right artificial hip joint
CPT/HCPCS: 36415; 80048; 80053; 80061; 80156; 82306; 83036; 83540; 83550; 83735; 84436; 84443; 84480; 85025; 85027; 86592; 93005; 97110